=== PATIENT | female | born 1970 | race Caucasian/White ===

== ENCOUNTER → 2023-05-11 | Outpatient (CLI) | payer OTHER, SELFPAY ==
--- NOTE | 2023-05-11 09:22 | MRI_ITS ---
STUDY: MRI ABDOMEN AND PELVIS WITH CONTRAST AND ENTEROGRAPHY REASON FOR EXAM: Female, 52 years old. Chron''s disease; S/P small bowel resection TECHNIQUE: Standardized fat and water weighted pulse sequences were obtained in all 3 orthogonal planes post contrast administration. IV 16ml clariscan contrast material was administered. COMPARISON: None. FINDINGS: MR enterography Bowel: Skip lesions: There is moderate abnormal narrowing/stricturing in the middle one third aspect of the ileum seen in the right mid abdomen on image 17/24 series 3 which shows 2 separate areas of focal narrowing. Some fibrotic stranding which is low in signal is also present in the first area of focal narrowing seen on image 18/24 series 3. There is also mild bowel wall thickening with a short segment of mild to moderate narrowing at the terminal ileum/ileocolic junction best seen on images 16 and 17/24 series 5. No upstream dilatation is present. There is no evidence of small bowel obstruction. Vascularity: Normal. Enhancement: Normal. Fistula: None. Abscess: None. There is no evidence of bowel obstruction or abnormal tethering of the bowel loops. No intraluminal masses are seen. Contrast opacifies the bowel loops with no focal stricturing or abnormal dilatation. The visualized lung bases are unremarkable. The visualized portions of the heart are within normal limits. Normal liver. Normal gallbladder and extrahepatic biliary system. Normal spleen. Normal pancreas. Normal bilateral adrenal glands. Normal right kidney. Normal left kidney. Normal visualized stomach. Normal remaining small intestine. Normal colon. Normal abdominal aorta. Normal inferior vena cava. Normal retroperitoneum. Normal urinary bladder. Normal abdominal wall. Normal osseous structures. MRI/Enterography Abd/Pel IMPRESSION: 1. Skip lesions: There is moderate abnormal narrowing/stricturing in the middle one third aspect of the ileum seen in the right mid abdomen on image 17/24 series 3 which shows 2 separate areas of focal narrowing. Some fibrotic stranding which is low in signal is also present in the first area of focal narrowing seen on image 18/24 series 3. There is also mild bowel wall thickening with a short segment of mild to moderate narrowing at the terminal ileum/ileocolic junction best seen on images 16 and 17/24 series 5. No upstream dilatation is present. There is no evidence of small bowel obstruction. Electronically Signed: Sam Moreno MD at 12:25 [facility] ,
--- OUTSIDE RECORDS SUMMARY | 2023-05-11 09:23 | XMS RPT_ITS | CCD ---
Author Name Unknown Address [address] [facility] [address] [place] [address] Organization [facility] Care Team Providers Care Security Business Analyst Name Role Phone José Miguel Burris Unavailable Unavailable Ramos Madsen Primary Care Provider Ramos Madsen Primary Care Provider Ramos Madsen Primary Care Provider Dallas Samano MD Unavailable Ramos Madesn MD Primary Care Provider [phone] Ramos Madsen MD Primary Care Provider Unavailable Primary Care Provider Unavailabl e ESTELA LOWE CNP Admitting Unavailable ESTELA LOWE CNP Primary Care Unavailable ESTELA LOWE CNP Consulting Unavailable ESTELA LOWE CNP Attending Unavailable PROVIDER, UNKNOWN Consulting Unavailable PROVIDER, UNKNOWN Consulting Unavailable ESTELA LOWE CNP Admitting Unavailable ESTELA LOWE CNP Primary Care Unavailable ESTELA LOWE CNP Consulting Unavailable ESTELA LOWE CNP Attending Unavailable PROVIDER, UNKNOWN Consulting Unavailable PROVIDER, UNKNOWN Consulting Unavailable ESTELA LOWE CNP Admitting Unavailable ESTELA LOWE CNP Primary Care Unavailable ESTELA LOWE CNP Attending Unavailable Estela Lowe Primary Care Provider JESUS CAMPOS Referring Unavailable JESUS CAMPOS Attending Unavailable ESTELA LOWE CNP Primary Care Unavailable TIERRA DUONG~[phone], TIERRA Andrade Attending Unavailable TIERRA DUONG~[phone], TIERRA Andrade Admitting Unavailable Allergies Allergy Classification Reported Allergen(s) Allergy Type Date of Onset Reaction(s) Facility adalimumab (1 source) adalimumab Drug Allergy 016 Rash, Other (See Comments) [facility] Corticosteroids (2 sources) predniSONE Drug Allergy Hives, Other (See Comments) [facility] Macrolides (antibiotic) (1 source) Azithromycin Drug Allergy Diarrhea [facility] mesalamine (1 source) mesalamine Drug Allergy Hives [facility] Nitrofurantoin (1 source) Nitrofurantoin Drug Allergy 018 Nausea Only, Other (See Comments) [facility] NSAIDs (1 source) NSAIDs Drug Allergy Other (See Comments) [facility] Opioid Agonists (1 source) Propoxyphene Drug Allergy Hives [facility] Quinolones (antibiotic) (2 sources) levoFLOXacin Drug Allergy Hives [facility] Sulfonamides (antibiotic) (1 source) Sulfonamides (Antibiotic) Drug Allergy Hives [facility] (17 sources) adalimumab; Translations: [ADALIMUMAB] Drug Allergy 016 Rash, Other (See Comments), [place], [place] (19 sources) Azithromycin; Translations: [AZITHROMYCIN] Drug Allergy Diarrhea, Other: See Comments [place], [place] (19 sources) levoFLOXacin; Translations: [LEVOFLOXACIN] Drug Allergy [place] (14 sources) levoFLOXacin Drug Allergy [place] (14 sources) mesalamine Drug Allergy [place] (16 sources) methylPREDNISolone Drug Allergy [place] (14 sources) Nitrofurantoin Drug Allergy 018 Nausea Only, Other (See Comments) [place] (14 sources) NSAIDs Propensity to adverse reactions to drug Other (See Comments) [place] (18 sources) predniSONE; Translations: [PREDNISONE] Drug Allergy Hives, Other (See Comments) [place] (14 sources) Propoxyphene Drug Allergy 015 [place] (14 sources) Sulfonamides (Antibiotic) Propensity to adverse reactions to drug [place] (14 sources) Other Propensity to adverse reactions 013 Anaphylaxis [place] (1 source) Acetaminophen / Propoxyphene Drug Allergy hives [facility] [facility] Work Phone: (2 sources) adalimumab; Translations: [Humira] Drug Allergy swelling [facility] Work Phone: (1 source) Aspirin Drug Allergy due to chrons [facility] Work Phone: (1 source) Azithromycin Drug Allergy GI upset [facility] Work Phone: (1 source) House dust mite; Translations: [DUST MITES] allergy to substance nasal congenstion [facility] Work Phone: (1 source) Ibuprofen Drug Allergy Unable due to Chrons [facility] Work Phone: (1 source) le[facility]FLOXacin [facility] Work Phone: (2 sources) mesalamine; Translations: [Asacol] [facility] Work Phone: (2 sources) methylPREDNISolone; Translations: [Solu-Medrol] Drug Allergy hives/ swelling [facility] Work Phone: (1 source) Mold Extract; Translations: [MOLD] Drug Allergy [facility] Work Phone: (1 source) Nitrofurantoin Drug Allergy [place] [facility] Work Phone: (1 source) Propoxyphene [facility] Work Phone: (1 source) Sulfacetamide Drug Allergy [facility] Work Phone: (1 source) STINGING INSECTS; Translations: [STINGING INSECTS] allergy to substance swelling [facility] Work Phone: (3 sources) methylPREDNISolone; Translations: [METHYLPREDNISOLONE SODIUM SUCC] Drug Allergy [facility] (5 sources) Metoclopramide; Translations: [METOCLOPRAMIDE] Drug Allergy Other: See Comments [facility] (3 sources) NITROFURANTOIN, MACROCRYSTALS / Nitrofurantoin, Monohydrate; Translations: [NITROFURANTOIN MONOHYD/M-CRYST] Drug Allergy Other: See [facility] (3 sources) Non-steroidal anti-inflammatory agent; Translations: [NSAIDS (NON-STEROIDAL ANTI-INFLAMMATORY DRUG)] Propensity to adverse reactions to drug Other: See Comments [facility] (3 sources) Sulfonamides (Antibiotic); Translations: [SULFA (SULFONAMIDE ANTIBIOTICS)] Drug Allergy [facility] (3 sources) Centella Asiaticoside; Translations: [CENTELLA ASIATICOSIDE] Drug Allergy [facility] (3 sources) Propoxyphene N-Acetaminophen; Translations: [PROPOXYPHENE N-ACETAMINOPHEN] Drug Allergy [facility] (3 sources) Insect Venom; Translations: [INSECT VENOM] Drug Allergy Anaphylaxis [facility] (2 sources) adalimumab Drug Allergy [facility] (2 sources) Aluminum aspirin Drug Allergy [facility] (2 sources) bee venom Propensity to adverse reactions Anaphylaxis [facility] (2 sources) mesalamine Drug Allergy [facility] (2 sources) Nitrofurantoin Drug Allergy [facility] (2 sources) sulfADIAZINE Drug Allergy [facility] (1 source) Aspirin Drug Allergy [facility] (1 source) Azithromycin Drug Allergy [facility] (1 source) formoterol Drug Allergy [facility] (1 source) levoFLOXacin Drug Allergy [facility] (1 source) Nitrofurantoin Drug Allergy [facility] (1 source) NSAIDs Drug allergy (disorder) [facility] (1 source) predniSONE Drug Allergy [facility] (1 source) Sulfonamides (Antibiotic) Drug allergy (disorder) [facility] NEGATED: Highlighted row has been ruled out!Unclassified (1 source) Other Propensity to adverse reactions 013 Anaphylaxis [facility] Medications Current Medications Medication Drug Class(es) Dates Sig (Normalized) Sig (Original) anastrozole 1 mg oral tablet (16 sources) Aromatase Inhibitor Start: 09-30-2020 take 1 tablet by mouth once daily anastrozole (ARIMIDEX) 1 MG tablet take 1 tablet by mouth once daily 90 tablet 0 09/30/2020 Active Completed/Discontinued Medications Medication Drug Class(es) Dates Sig (Normalized) Sig (Original) acetaminophen 500 mg oral tablet (2 sources) acetaminophen (T YLENOL EX STR RAPID RELEASE ORAL) Take 500 mg by mouth as needed. 0 Active Problems Active Problems Problem Classification Problem Date Documented Da te Episodic/Chronic Cancer of breast (6 sources) Intraductal carcinoma in situ of right breast; Translations: [Intraductal carcinoma in situ of right breast] Onset: 06-26-2015 03-11-2016 Chronic Cancer of breast (11 sources) Intraductal carcinoma in situ of right breast; Translations: [Ductal carcinoma in situ (DCIS) of right breast] Onset: 06-26-2015 03-11-2016 Complications of surgical procedures or medical care (20 sources) Short bowel syndrome; Translations: [Postsurgical malabsorption, not elsewhere classified] Onset: 08-17-2018 08-17-2018 Chronic Diabetes mellitus with complications (1 source) Type 2 diabetes mellitus with hyperglycemia; Translations: [Type 2 diabetes mellitus with hyperglycemia] Onset: 02-01-2023 Chronic Disorders of lipid metabolism (1 source) Hyperlipidemia, unspecified; Translations: [Hyperlipidemia, unspecified] Onset: 02-01-2023 Chronic Genitourinary symptoms and ill-defined conditions (4 sources) Retention of urine; Translations: [Retention of urine, unspecified] Onset: 03-20-2023 01-24-2023 Episodic Nonmalignant breast conditions (1 source) Discharge from left nipple; Translations: [Discharge from left nipple] Other connective tissue disease (1 source) Other muscle spasm; Translations: [Other muscle spasm] Onset: 02-01-2023 Episodic Other connective tissue disease (1 source) Adhesive capsulitis of right shoulder; Translations: [Adhesive capsulitis of right shoulder] Onset: 03-13-2020 03-13-2020 Other diseases of kidney and ureters (1 source) Cyst of kidney; Translations: [Cyst of kidney, acquired] 01-24-2023 Episodic Other screening for suspected conditions (not mental disorders or infectious disease) (1 source) Mammography abnormal; Translations: [Other abnormal and inconclusive findings on diagnostic imaging of breast] 03-22-2023 Episodic Regional enteritis and ulcerative colitis (20 sources) Crohn's disease of small AND large intestines; Translations: [Crohn's disease of both small and large intestine with intestinal obstruction] Onset: 03-04-2015 03-04-2015 Chronic Unclassified (1 source) Breast finding ; Translations: [Personal history of breast implant removal] Onset: 03-14-2016 03-14-2016 Past or Other Problems Problem Classification Problem Date Documented Date Episodic/Chronic Cancer of breast (18 sources) History of malignant neoplasm of breast; Translations: [Encounter for follow-up examination after completed treatment for malignant neoplasm] Onset: 6 03-11-2016 Episodic Complication of device; implant or graft (1 source) Capsular breast contracture of breast implant; Translations: [Capsular contracture of breast implant, initial encounter] Onset: 6 11-30-2015 Episodic Nonmalignant breast conditions (18 sources) Mammographic microcalcification of breast; Translations: [Microcalcifications of the breast] Onset: 6 06-05-2015 Episodic Residual codes; unclassified (1 source) History of augmentation of breast; Translations: [Other specified postprocedural states] Onset: 6 01-04-2016 Episodic Unclassified (1 source) Problem Results Test Name Value Interpretation Reference Range Facil ity Vital Signs Date Time Vital Sign Value Performing Clinician Faci lity 03-22-2023 13:05-0500 Body height 167.6 cm Celi Rojas MD Work Phone: [facility] [employer] 03-22-2023 13:05-0500 Body mass index (BMI) [Ratio] 28.89 kg/m2 Celi Rojas MD Work Phone: [facility] [employer] 03-22-2023 13:05-0500 Body temperature 97.81 [degF] Celi Rojas MD Work Phone: [facility] [employer] 03-22-2023 13:05-0500 Body weight 81.19 kg Celi Rojas MD Work Phone: [facility] 03-22-2023 13:05-0500 Diastolic blood pressure 77 mm[Hg] Celi Rojas MD Work Phone: [facility] [employer] 03-22-2023 13:05-0500 Heart rate 104 /min Celi Rojas MD Work Phone: [facility] Encounters Encounter Date Encounter Type Care Provider Facility Start: 04-25-2023 End: 04-26-2023 ambulatory ESTELA LOWE [facility] Start: 03-22-2023 Telephone encounter Celi Coon MD Work Phone: [facility] General Surgery Procedures Date Procedure Procedure Detail Performing Clinician Start: 01-24-2023 Urnls dip stick/tabl et rgnt auto w/o microscopy Jesus Campos PA-C Work Phone: Start: 03-13-2020 End: 03-13-2020 Arthrocentesis aspir&/inj major jt/bursa w/o us Dallas Samano MD Work Phone: Start: 03-13-2020 End: 03-13-2020 Blood pressure screening not performed - reason not given Dallas Samano MD Work Phone: Start: 03-13-2020 End: 03-13-2020 BMI documented as above normal parameters - follow-up documented Dallas Samano MD Work Phone: Start: 03-13-2020 End: 03-13-2020 Documentation of current medications Dallas Samano MD Work Phone: Start: 03-13-2020 End: 03-13-2020 Injection - triamcinolone acetonide 10 mg Dallas Samano MD Work Phone: Start: 03-13-2020 End: 03-13-2020 Pain assessment documented as positive - follow-up documented Dallas Samano MD Work Phone: Start: 03-13-2020 End: 03-13-2020 Tobacco non-user Dallas Samano MD Work Phone: Start: 02-14-2020 Mammography Celi Coon MD Work Phone: Start: 06-21-2019 Us breast uni real t april with image limited Celi Rojas Work Phone: Start: 06-21-2019 Diagnostic mammograp hy computer-aided detcj uni Celi Rojas Work Phone: Start: 04-13-2018 Lipid 1996 panel - S briana or Plasma Jesus Campos PA-C Work Phone: NEGATED: Highlighted rowStart: 03-13-2020 End: 03-13-2020 Documentation of current medications Kiley Wilkinson Plan of Treatment Date Care Activity Detail Author Start: 2030 RSV Immunization aged 60 or older (1 - 1-dose 60+ series) RSV Immunization aged 60 or older (1 - 1-dose 60+ series) [facility] Start: 02-01-2026 Diabetes Screening Diabetes Screening [facility] Start: 02-02-2024 Hemoglobin A1c measurement Diabetes: Hemoglobin A1C [facility] Start: 09-20-2023 End: 05-22-2024 DBT Breast - right diagnostic Right diagnostic mammogram with tomosynthesis Imaging Routine History of ductal carcinoma in situ (DCIS) of breast Abnormal mammogram of right breast Breast asymmetry Expected: 09/20/2023, Expires: 05/22/2024 [facility] Work Phone: Immunizations Immunization Date Immunization Notes Care Provider Fa cility 01-23-2020 influenza virus vacc ine, unspecified formulation Jesus Campos PA-C Work Phone: [facility] 04-09-2018 influenza virus vacc ine, unspecified formulation Celi Rojas MD Work Phone: [facility] Payers Date Payer Category Payer Unknown [id number] 2018 Unknown [facility] xxxxxxxxxxx 2018-Present [phone] [address] [place] [address] xxxxxxxxxxx [id number] 2018 Unknown [facility] [id number] 2018-Present [phone] [address] [place] [address] [id number] 2016 Private Health Insurance [id number] 2016 Private Health Insurance [employer] xxxxxxxxxx 2016-Present [phone] [address] [place] [address] xxxxxxxxxx [id number] 1970 Unknown [id number] 1970 Unknown [id number] 1970 Unknown [id number] 1970 Unknown [id number] 1970 Unknown [id number] 1959 Unknown [id number] Social History Date Type Detail Facility Start: 09-28-2018 End: 01-24-2023 Tobacco smoking status NHIS Former smoker [facility] End: 01-25-2018 History of tobacco use Current smoker [facility] [employer] [place] Start: 09-28-2018 End: 04-12-2022 Cigarettes smoked current (pack per day) - Reported [facility] Start: 09-28-2018 End: 04-12-2022 Alcohol intake No [facility] [place] Start: 03-04-2015 Alcohol Comment caffeine use 2 -3 cups of coffee or pop [facility] [place] Start: 1970 Sex Assigned At Not on file M [facility] Start: 09-28-2018 End: 03-22-2023 Alcohol intake Current non-drinker of alcohol (finding) [facility] [place] Start: 02-05-2020 End: 01-24-2023 Tobacco use and exposure Never used [facility] [place] Exposure to SARS-CoV-2 (event) Not sure [facility] [place] Start: 03-13-2020 End: 03-13-2020 Assertion Unknown if ever smoked [facility] Work Phone: End: 01-25-2018 History of tobacco use Cigarette Smoker [facility] Start: 01-24-2023 Alcohol intake Ex-drinker (finding) [facility] Start: 1970 Sex Assigned At Female C [facility] Start: 01-18-2023 Gender identity Identifies as female gender (finding) [facility] Start: 01-18-2023 Sexual orientation Heterosexual (fin shantelle) [facility] NEGATED: Highlighted rowStart: 03-13-2020 End: 03-13-2020 Employment detail Employment detail [facility] Work Phone: Clinical Notes 01-24-2023 to 03-22-2023 Telephone Encounter - Celi Rojas MD - 03/22/2023 5:48 PM ESTTelephone Encounter - Celi Rojas MD - 03/22/2023 5:48 PM ESTVicjesus Rojas MD - 03/22/2023 1:00 PM EST Note Date & Type Note Facility 03-22-2023 Telephone encounter Note Images reviewed with radiology and consistent with scar tissue Left message on phone number on file [facility] 03-22-2023 Miscellaneous Notes Images reviewed with radiology and consistent with scar tissue Left message on phone number on file Ragini saw Dr Love today for abnormal breast imaging performed at [facility] She brought disc to appointment today of 03/01/23 bilateral mammogram and right dx and ultrasound Disc taken to Breast and Imaging to be loaded into [email or web address] Dr Love to review images documented in this encounter [facility] 03-22-2023 Telephone encounter Note Ragini saw Dr Love today for abnormal breast imaging performed at [facility] She brought disc to appointment today of 03/01/23 bilateral mammogram and right dx and ultrasound Disc taken to Breast and Imaging to be loaded into [email or web address] Dr Love to review images [facility] 03-22-2023 History of Presen t illness Narrative Images from the original note were not included. Chief Complaint Patient presents with Abnormal Imaging Denies any breast pain or concerns History of Present Illness: Ragini Mensah is a 52 y.o. female here for exam due to an abnormal mammogram in [facility] with BIRAD 3 probably benign findings RIGHT breast. 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 Had oophorectomy Treatments include: Surgery- 06/21/15 lumpectomy, In 2017 she had her implants removed and a bilateral mastopexy. Chemotherapy- none Radiation therapy- completed 10/09/15 Endocrine therapy- Arimidex Last mammogram date 03/01/23 [facility] Last DEXA 01/05/18. Results: Normal. Genetics: GeneDX- VUS in MSH2 Imaging: Review of Systems: Review of Systems Constitutional: Negative for appetite change, diaphoresis, fatigue, fever and unexpected weight change. HENT: Negative for trouble swallowing and voice change. Eyes: Negative for visual disturbance. Respiratory: Negative for apnea, cough, choking, shortness of breath and stridor. Cardiovascular: Negative for chest pain. Gastrointestinal: Crohn's disease Endocrine: Negative for cold intolerance and heat intolerance. Musculoskeletal: Positive for arthralgias. Negative for joint swelling, myalgias and neck pain. Skin: Negative for color change and rash. Allergic/Immunologic: Negative for immunocompromised state. Neurological: Negative for dizziness, tremors, weakness, numbness and headaches. Hematological: Negative for adenopathy. Psychiatric/Behavioral: Negative for decreased concentration and dysphoric mood. The patient is not nervous/anxious. Past Medical History: Diagnosis Date Allergic rhinitis Arthritis Back pain Breast neoplasm, 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 DCIS// radiation txs Crohn's colitis (CMS/HCC) (HCC) Diabetes (HCC) Controled by diet GERD (gastroesophageal reflux disease) Hyperlipidemia MVP (mitral valve prolapse) hx of Osteoarthritis Restless leg syndrome Tachycardia TMJ (dislocation of temporomandibular joint) Past Surgical History: Procedure Laterality Date APPENDECTOMY 2014 BREAST BIOPSY Right 06/09/15 core biopsy right breast x 2 (+) BREAST BIOPSY Left 06/23/15 core biopsy left breast (-) BREAST ENHANCEMENT SURGERY 2004 BREAST LUMPECTOMY Right 07/20/15 RSL right breast lumpectomy BREAST SURGERY Bilateral 03/28/2016 mastopexy, implants removed andrea, capsular contracture removede right SECTION (HISTORICAL) 1999 CHOLECYSTECTOMY 1995 COLECTOMY CYST REMOVAL Right EAR CYSTOURETHROSCOPY/URETHRAL DILATION (HISTORICAL) x's 7 DILATION AND CURETTAGE OF UTERUS x's 7 ENDOMETRIAL ABLATION 2004 OTHER SURGICAL HISTORY interstim stage I OTHER SURGICAL HISTORY 07/04/2017 Stage I Interstim placement of permanent lead under fluoroscopic guidance SALPINGOOPHORECTOMY Bilateral 09/2015 Laparoscopic TMJ ARTHROPLASTY (HISTORICAL) 87/89//12 x's 4 TMJ ARTHROSCOPY (HISTORICAL) TONSILLECTOMY AND ADENOIDECTOMY (HISTORICAL) 1975 TUBAL LIGATION 2004 WISDOM TOOTH EXTRACTION Allergies Allergen Reactions Bee Venom Anaphylaxis Asa [Aspirin] Grohns Asacol [Mesalamine] Hives Humira [Adalimumab] Hives Levaquin [Levofloxacin] Hives Macrobid [Nitrofurantoin] Lethargy sleep Reglan [Metoclopramide] Tardive dyskinesia Solu-Medrol [Methylprednisolone] Hives Sulfadiazine Hives Zithromax [Azithromycin] GI upset BP 125/77 (BP Location: Left arm, Patient Position: Sitting) Pulse 104 Comment: patient states she has tachycardia Temp 36.6 C (97.8 F) (Temporal) Resp 12 Ht 5' 6 (1.676 m) Wt 179 lb (81.2 kg) BMI 28.89 kg/m Current Outpatient Medications on File Prior to Visit Medication Sig Dispense Refill cetirizine (ZyrTEC) 10 MG tablet Take 10 mg by mouth. Daily ezetimibe (Zetia) 10 MG tablet Take 10 mg by mouth daily. folic acid (Folvite) 1 MG tablet Take by mouth daily. glimepiride (Amaryl) 4 MG tablet Take 4 mg by mouth every morning (before breakfast). 2 daily Insulin Glargine (TOUJEO MAX SOLOSTAR SC) Inject under the skin. 84 units daily metFORMIN, MOD, (Glumetza) 1000 MG 24 hr tablet Take 1,000 mg by mouth in the morning and 1,000 mg in the evening. Take with meals. Do not crush, chew, or split.. methotrexate 2.5 MG tablet Take by mouth 1 (one) time per week. Follow directions carefully, and ask to explain any part you do not understand. Take exactly as directed. 10 tabs weekly metoprolol succinate XL (Toprol-XL) 100 MG 24 hr tablet Take 100 mg by mouth. Do not crush or chew. omeprazole (PriLOSEC) [address] capsule Take 40 mg by mouth every morning (before breakfast). Do not crush or chew. ondansetron (Zofran) 8 MG tablet Take by mouth every 8 hours as needed for nausea or vomiting. promethazine (Phenergan) 25 MG tablet Take by mouth every 8 hours as needed for nausea or vomiting. rosuvastatin (Crestor) 40 MG tablet Take 40 mg by mouth daily. semaglutide (Rybelsus) 14 MG tablet Take 14 mg by mouth every morning (before breakfast). tiZANidine (Zanaflex) 4 MG tablet Take 4 mg by mouth every 6 hours as needed for muscle spasms. 2 at bedtime traZODone (Desyrel) 100 MG tablet Take 100 mg by mouth Nightly. vedolizumab (Entyvio) 300 MG injection Infuse 300 mg into a venous catheter Once. Every 8 weeks venlafaxine XR (Effexor XR) 37.5 MG 24 hr capsule Take 37.5 mg by mouth daily. Do not crush or chew. No current facility-administered medications on file prior to visit. Physical Exam: Physical Exam Constitutional: Appearance: Normal appearance. She is normal weight. HENT: Head: Normocephalic and atraumatic. Eyes: Extraocular Movements: Extraocular movements intact. Conjunctiva/sclera: Conjunctivae normal. Pupils: Pupils are equal, round, and reactive to light. Cardiovascular: Rate and Rhythm: Normal rate and regular rhythm. Pulses: Normal pulses. Pulmonary: Effort: Pulmonary effort is normal. Breath sounds: Normal breath sounds. No stridor. Chest: Chest wall: No deformity, tenderness or edema. Breasts: Breasts are symmetrical. Right: Skin change (radiation change) and tenderness present. No swelling, inverted nipple, mass or nipple discharge. Left: Tenderness present. No swelling, inverted nipple, mass, nipple discharge or skin change. Musculoskeletal: General: No swelling, tenderness or deformity. Normal range of motion. Cervical back: Normal range of motion and neck supple. No rigidity or tenderness. Right lower leg: No edema. Left lower leg: No edema. Lymphadenopathy: Cervical: No cervical adenopathy. Right cervical: No superficial, deep or posterior cervical adenopathy. Left cervical: No superficial, deep or posterior cervical adenopathy. Upper Body: Right upper body: No supraclavicular, axillary or pectoral adenopathy. Left upper body: No supraclavicular, axillary or pectoral adenopathy. Skin: General: Skin is warm and dry. Coloration: Skin is not jaundiced or pale. Findings: No erythema, lesion or rash. Neurological: General: No focal deficit present. Mental Status: She is alert and oriented to person, place, and time. Motor: No weakness. Gait: Gait normal. Psychiatric: Mood and Affect: Mood normal. Behavior: Behavior normal. Thought Content: Thought content normal. Assessment: 1. Breast asymmetry 2. History of ductal carcinoma in situ (DCIS) of breast 3. Abnormal mammogram of right breast Films reviewed with radiology and looks like scar Plan: Orders Placed This Encounter Procedures Right diagnostic mammogram with tomosynthesis Breast Cancer Surveillance: History and physical exam 1-4 times per year for 5 years, then annually Mammography every 12 months (routine imaging of reconstructed breast is not indicated) For women on tamoxifen: annual gynecologic assessment every 12 mo if uterus present For women on aromatase inhibitor: Monitoring of bone density at baseline and periodically thereafter Encouraged physical activity, healthy diet, limiting alcohol intake, and achieving and maintaining a healthy body weight Celi Rojas MD 03/22/2023 Please disregard any typographical errors. This note was dictated using voice recognition software. documented in this encounter [facility] 03-20-2023 Miscellaneous Notes Images from the original note were not included. Jesus Campos PA-C [facility] [place]; Ro Landry LPN 34 minutes ago (1:21 PM) Patient will have to bring straight cath to give sample at lab Called patient. Verified name and date of . Patient informed- verbalizes understanding. Betzy Lemus LPN Patient called, verified name/ , regarding having an UTI. Patient states she is experiencing pain when urinating, frequent urination, urine is cloudy especially when she self- cath. Please review advise. Ro Landry LPN documented in this encounter [facility] 01-24-2023 Note HNO ID: [id number] Author: Jesus Campos PA-C Service: ? Author Type: Physician Shovel Mechanic Type: Progress Notes Filed: 01/24/2023 7:52 PM Note Text: COUNT INCLUDES THE [facility] NEW PATIENT CLINIC NOTE SERVICE DATE: 01/24/2023 SERVICE TIME: 2:52 PM NAME: Ragini Mensah CHIEF COMPLAINT: HISTORY OF PRESENT ILLNESS: Ragini Mensah is a 52 year old female moving from [place] to [place] and establishing for her long history of urethral stricture needing annual dilation in the past now with urinary retention and use of CIC twice per day , she has not had dilation for years The patient reports catheters needed new Rx to be sent to [address] [place] [address], Rx for 130 each written to be faxed LUTS: EMPTIES COMPLETELY: No UTI: No GROSS HEMATURIA: no LABS: No results found for: TESTOST No results found for: TESTFREE No results found for: PSA No results found for: HCT No results found for: PSA No results found for: CREAT . MEDICATIONS: glimepiride (AMARYL) 4 mg tablet Take 8 mg by mouth daily at bedtime. venlafaxine (EFFEXOR) 37.5 mg tablet Take 37.5 mg by mouth daily at bedtime. omeprazole (PRILOSEC) 40 mg capsule Take 40 mg by mouth once daily. cetirizine (ZYRTEC) 10 mg tablet Take 10 mg by mouth daily at bedtime. tiZANidine (ZANAFLEX) 4 mg tablet Take 4 mg by mouth daily at bedtime. Takes 8 MG metoprolol succinate ER (TOPROL XL) 100 mg Take 1 tablet by mouth once daily. rosuvastatin (CRESTOR) 40 mg tablet Take 40 mg by mouth once daily. metFORMIN (GLUCOPHAGE) 1,000 mg tablet Take 1 tablet by mouth two times a day. methotrexate 2.5 mg tablet Take 2.5 mg by mouth one time a week. 10 tablets traZODone (DESYREL) 100 mg tablet Take 100 mg by mouth daily at bedtime. promethazine (PHENERGAN) 25 mg tablet Take 25 mg by mouth at bedtime as needed. insulin glargine U-300 conc (TOUJEO MAX U-300 SOLOSTAR) 300 unit/mL (3 mL) inpn Inject 84 Units subcutaneously once daily. RYBELSUS 7 mg tablet Take 7 mg by mouth once daily. acetaminophen (TYLENOL EX STR RAPID RELEASE ORAL) Take 500 mg by mouth as needed. folic acid 1 mg tablet Take 1 mg by mouth daily at bedtime. vedolizumab (ENTYVIO) 300 mg injection Inject 300 mg intravenously every 8 weeks. (Patient not taking: Reported on 01/24/2023) lomitapide mesylate (LOMITAPIDE ORAL) Take 5 mg by mouth daily at bedtime. (Patient not taking: Reported on 01/24/2023) Catheter 14-16 Fr- misc 1 Each two times a day. 180 medical PAST MEDICAL HISTORY: PAST MEDICAL HISTORY Diagnosis Date Arthritis, multiple joint involvement Body mass index 29.0-29.9, adult Breast cancer (HCC) H/O Chronic nausea Crohn disease (HCC) Dyslipidemia Environmental and seasonal allergies Former smoker GERD (gastroesophageal reflux disease) Hypertension goal BP (blood pressure) < 140/90 Intertrigo Major depression Muscle spasm Overweight with body mass index (BMI) 25.0-29.9 Port-A-Cath in place Raynaud phenomenon Type 2 diabetes mellitus with hyperglycemia, without long-term current use of insulin (HCC) Urinary retention PAST SURGICAL HISTORY: PAST SURGICAL HISTORY Procedure Laterality Date BREAST LUMPECTOMY HX Right 2016 LIGATE FALLOPIAN TUBE 2005 PAST SURGICAL HISTORY OF 2005 Ablation PAST SURGICAL HISTORY OF Cystoscopy x 9 FAMILY HISTORY: No family history on file. SOCIAL HISTORY: Social Connections: Not on file REVIEW OF SYSTEMS: GENERAL: No fever, chills, weight loss, or fatigue. ENMT: Negative CARDIOVASCULAR:NO CHEST PAIN, PALPITATIONS, ANKLE EDEMA RESPIRATORY: No chronic cough, wheezing, dyspnea, hemoptysis. GENITOURINARY: SEE HPI MUSCULOSKELETAL:NO CHRONIC BACK PAIN, ARTHRITIS, CHRONIC NECK PAIN SKIN: NO VARICOSE VEINS, RASH, ABNORMAL ITCHING HEME/LYMPH/IMMUNE:Negative for prolonged bleeding, bruising easily or swollen nodes NEUROLOGICAL: NO HEADACHES, NUMBNESS, SEIZURES, STROKE DIABETES: yes with Glycosuria All other systems reviewed and are negative PHYSICAL EXAMINATION: Blood pressure 132/78, pulse 118, temperature 36.8 ?C (98.2 ?F), temperature source Temporal, resp. rate 14, height 167.6 cm (5' 6 ), weight 83.6 kg (184 lb 3.2 oz), SpO2 96 %. GENERAL: WNL nutrition, no deformities, healthy appearing NEURO: Awake, alert and oriented x 3 and Normal gait PSYCH: No signs of depression, anxiety, or agitation ENMT (Ear, Nose, Mouth, Throat): No masses, adenopathy, icterus. Thyroid nonpalpable RESP: NL effort, no retractions or purse-lip breathing. CV: No extremity swelling, varices, edema, pallor, erythema GASTROINTESTINAL: Soft, nontender, nondistended, no masses. HERNIAS: None SKIN: No rash, lesions No palpable lymphadenopathy MUSCULOSKELETAL: Extremities normal. No deformities, edema, clubbing or skin discoloration. PROBLEM LIST REVIEW: Yes LABS: Results for orders placed or performed in visit on 01/24/23 (more content not included)... [facility] 01-24-2023 Note HNO ID: [id number] Author: Betzy Lemus LPN Service: ? Author Type: ? Type: Progress Notes Filed: 01/24/2023 7:52 PM Note Text: Verified name and date of . CC Post Void Residual HPI: Ragini Mensah is a 52 year old female. The patient is here now for an appointment with BETITO Reynolds, SUDHA, PA-ROMEO. Procedure: Explained procedure to patient and verbalizes understanding. Performed a PVR. Patient urinated and instructed to empty bladder as much as possible just prior to having PVR done using bladder ultrasound scanner. Results of scan: 112 mL The patient tolerated the procedure well. Plan: Appointment with Jesus. [facility] 01-24-2023 History of Presen t illness Narrative Images from the original note were not included. COUNT INCLUDES THE [facility] NEW PATIENT CLINIC NOTE SERVICE DATE: 01/24/2023 SERVICE TIME: 2:52 PM NAME: Ragini Mensah CHIEF COMPLAINT: HISTORY OF PRESENT ILLNESS: Ragini Mensah is a 52 year old female moving from [place] to [place] and establishing for her long history of urethral stricture needing annual dilation in the past now with urinary retention and use of CIC twice per day , she has not had dilation for years The patient reports catheters needed new Rx to be sent to [facility], Rx for 130 each written to be faxed LUTS: EMPTIES COMPLETELY: No UTI: No GROSS HEMATURIA: no LABS: No results found for: TESTOST No results found for: TESTFREE No results found for: PSA No results found for: HCT No results found for: PSA No results found for: CREAT . MEDICATIONS: glimepiride (AMARYL) 4 mg tablet Take 8 mg by mouth daily at bedtime. venlafaxine (EFFEXOR) 37.5 mg tablet Take 37.5 mg by mouth daily at bedtime. omeprazole (PRILOSEC) 40 mg capsule Take 40 mg by mouth once daily. cetirizine (ZYRTEC) 10 mg tablet Take 10 mg by mouth daily at bedtime. tiZANidine (ZANAFLEX) 4 mg tablet Take 4 mg by mouth daily at bedtime. Takes 8 MG metoprolol succinate ER (TOPROL XL) 100 mg Take 1 tablet by mouth once daily. rosuvastatin (CRESTOR) 40 mg tablet Take 40 mg by mouth once daily. metFORMIN (GLUCOPHAGE) 1,000 mg tablet Take 1 tablet by mouth two times a day. methotrexate 2.5 mg tablet Take 2.5 mg by mouth one time a week. 10 tablets traZODone (DESYREL) 100 mg tablet Take 100 mg by mouth daily at bedtime. promethazine (PHENERGAN) 25 mg tablet Take 25 mg by mouth at bedtime as needed. insulin glargine U-300 conc (TOUJEO MAX U-300 SOLOSTAR) 300 unit/mL (3 mL) inpn Inject 84 Units subcutaneously once daily. RYBELSUS 7 mg tablet Take 7 mg by mouth once daily. acetaminophen (TYLENOL EX STR RAPID RELEASE ORAL) Take 500 mg by mouth as needed. folic acid 1 mg tablet Take 1 mg by mouth daily at bedtime. vedolizumab (ENTYVIO) 300 mg injection Inject 300 mg intravenously every 8 weeks. (Patient not taking: Reported on 01/24/2023) lomitapide mesylate (LOMITAPIDE ORAL) Take 5 mg by mouth daily at bedtime. (Patient not taking: Reported on 01/24/2023) Catheter 14-16 Fr- misc 1 Each two times a day. 180 medical PAST MEDICAL HISTORY: PAST MEDICAL HISTORY Diagnosis Date Arthritis, multiple joint involvement Body mass index 29.0-29.9, adult Breast cancer (HCC) H/O Chronic nausea Crohn disease (HCC) Dyslipidemia Environmental and seasonal allergies Former smoker GERD (gastroesophageal reflux disease) Hypertension goal BP (blood pressure) < 140/90 Intertrigo Major depression Muscle spasm Overweight with body mass index (BMI) 25.0-29.9 Port-A-Cath in place Raynaud phenomenon Type 2 diabetes mellitus with hyperglycemia, without long-term current use of insulin (HCC) Urinary retention PAST SURGICAL HISTORY: PAST SURGICAL HISTORY Procedure Laterality Date BREAST LUMPECTOMY HX Right 2016 LIGATE FALLOPIAN TUBE 2005 PAST SURGICAL HISTORY OF 2005 Ablation PAST SURGICAL HISTORY OF Cystoscopy x 9 FAMILY HISTORY: No family history on file. SOCIAL HISTORY: Social Connections: Not on file REVIEW OF SYSTEMS: GENERAL: No fever, chills, weight loss, or fatigue. ENMT: Negative CARDIOVASCULAR:NO CHEST PAIN, PALPITATIONS, ANKLE EDEMA RESPIRATORY: No chronic cough, wheezing, dyspnea, hemoptysis. GENITOURINARY: SEE HPI MUSCULOSKELETAL:NO CHRONIC BACK PAIN, ARTHRITIS, CHRONIC NECK PAIN SKIN: NO VARICOSE VEINS, RASH, ABNORMAL ITCHING HEME/LYMPH/IMMUNE:Negative for prolonged bleeding, bruising easily or swollen nodes NEUROLOGICAL: NO HEADACHES, NUMBNESS, SEIZURES, STROKE DIABETES: yes with Glycosuria All other systems reviewed and are negative PHYSICAL EXAMINATION: Blood pressure 132/78, pulse 118, temperature 36.8 C (98.2 F), temperature source Temporal, resp. rate 14, height 167.6 cm (5' 6 ), weight 83.6 kg (184 lb 3.2 oz), SpO2 96 %. GENERAL: WNL nutrition, no deformities, healthy appearing NEURO: Awake, alert and oriented x 3 and Normal gait PSYCH: No signs of depression, anxiety, or agitation ENMT (Ear, Nose, Mouth, Throat): No masses, adenopathy, icterus. Thyroid nonpalpable RESP: NL effort, no retractions or purse-lip breathing. CV: No extremity swelling, varices, edema, pallor, erythema GASTROINTESTINAL: Soft, nontender, nondistended, no masses. HERNIAS: None SKIN: No rash, lesions No palpable lymphadenopathy MUSCULOSKELETAL: Extremities normal. No deformities, edema, clubbing or skin discoloration. PROBLEM LIST REVIEW: Yes LABS: Results for orders placed or performed in visit on 01/24/23 UA DIP, URINE (POC) Result Value Ref Range GLUCOSE UA (POCT) 500 (A) Negative mg/dL BILIRUBIN UA (POCT) Negative Negative KETONE UA (POCT) Negative Negative mg/dL SPECIFIC GRAVITY UA (POCT) 1.010 1.005 - 1.030 HEMOGLOBIN/BLOOD UA (POCT) Negative Negative PH UA (POCT) 5.5 4.5 - 8.0 PROTEIN UA (POCT) Negative Negative mg/dL UROBILINOGEN UA (POCT) 0.2 Normal E.U./dL NITRITE UA (POCT) Negative Negative LEUKOCYTES UA (POCT) Negative Negative COLOR UA (POCT) Yellow CLARITY UA (POCT) Clear PROCEDURES: PVR: 112 ml IMAGING: Renal US - to check for hydronephrosis IMPRESSION/PLAN: 52 year old female with 1. Urine retention - ICD9: 788.20, ICD10: R33.9 (primary diagnosis) 2. H/O urethral stricture - ICD9: V13.09, ICD10: Z87.448 > Continue CIC twice per day > New Rx for 14f catheters to [facility]- medical today > Renal US - to check for hydronephrosis and renal cysts > 1 year Appt w/ B. BETITO Campos MT, PA-C for annual follow-up and refills. I spent a total of 30 minutes on the date of the service which included preparing to see the patient, face to face patient care, completing clinical documentation, obtaining and/or reviewing separately obtained history, performing a medically appropriate examination, counseling and educating the patient/family/caregiver, ordering medications, tests, or procedures, and care coordination. BETITO Reynolds MT, PA-C Verified name and date of . CC Post Void Residual HPI: Ragini Mensah is a 52 year old female. The patient is here now for an appointment with BETITO Reynolds MT, PA-COV. Procedure: Explained procedure to patient and verbalizes understanding. Performed a PVR. Patient urinated and instructed to empty bladder as much as possible just prior to having PVR done using bladder ultrasound scanner. Results of scan: 112 mL The patient tolerated the procedure well. Plan: Appointment with Jesus. 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 documented [facility] Phone: Evaluation note* Diagnosis Urine retention- Primary Retention of urine, unspecified H/O urethral stricture Personal history of other disorder of urinary system Renal cyst Unspecified congenital cystic kidney disease [facility] Diagnosis Dysuria- Primary [facility]* Diagnosis Breast asymmetry- Primary History of ductal carcinoma in situ (DCIS) of breast Abnormal mammogram of right breast [facility] Diagnostic Procedure Only (Routine) - Authorized Specialty Diagnoses / Procedures Referred By Contac t Referred To Contact US IMAGING Diagnoses Urine retention Procedures US KIDNEY/BLADDER US RETROPERITONEAL REAL TIME W/IMAGE COMPLETE Jesus Campos PA-C [address] [place] [address] [facility] [place] [address] Referral ID Status Reason Start Date Expiration Date Visits Requested Visits Authorized [id number] Authorized Auto-Generat ed Referral 02/24/2023 02/23/2024 1 1 [facility] Summary Purpose Family History No Family History Records FoundNo Family History Records FoundThere may be information available, but it has not been provided by the sender.No Family History Records FoundNo Family History Records FoundNo Family History Records FoundNo Family History Records Found Advance Directives No Advanced Directives Records FoundDocuments on File Type Date Recorded Patient Check Viewer Expl anation Advance Directives and Living Will Power of Drop Wire Hanger Latest Code Status on File Code Status Date Activated Date Inactivated Comments Full Code 07/25/2017 10:12 AM 07/25/2017 4:15 PM Full Code 07/04/2017 12:10 PM 07/04/2017 5:06 PM Documents on File Type Date Recorded Patient Check Viewer Expl anation Advance Directives and Living Will Power of Drop Wire Hanger Latest Code Status on File Code Status Date Activated Date Inactivated Comments Full Code 07/25/2017 10:12 AM 07/25/2017 4:15 PM Full Code 07/04/2017 12:10 PM 07/04/2017 5:06 PM Documents on File Type Date Recorded Patient Check Viewer Expl anation ACP-Advance Directive ACP-Power of Drop Wire Hanger Assessments Diagnosis 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 Diagnosis Crohn's disease of both small and large intestine with intestinal obstruction (HCC)- Primary Regional enteritis of small intestine with large intestine Short bowel syndrome Other and unspecified postsurgical nonabsorption Diagnosis 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 Diagnosis 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 Diagnosis Discharge from left nipple Diagnosis 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 [facility] [address] [place] [address] Status Reason Specialty Diagnoses / Procedures Referred By Contact Referred To Contact Authorized Radiology Diagnoses Discharge from left nipple Procedures ARIC RADHA DIGITAL DIAGNOSTIC UNILATERAL LEFT Celi Rojas MD [address] [place] [address] Chief Complaint Chief Complaint Description Start Date right shoulder pain Preliminary chief co mplaint data, not yet signed by the author as of Instructions Instruction Description Start Date CompletedPatient advised to follow-up with Primary Care Physician for BMI management. Review of System There may be information available, but it has not been provided by the sender. History of Present Illness There may be information available, but it has not been provided by the sender. Additional Source Comments INFORMATION SOURCE (unrecogn ized section and content) DATE CREATED AUTHOR AUTHOR'S ORGANIZ ATION 02/17/2020 [employer] [facility] tem DATE CREATED AUTHOR AUTHOR'S ORGANIZ ATION 10/15/2020 [facility] DATE CREATED AUTHOR AUTHOR'S ORGANIZ ATION 03/15/[address] [facility] DATE CREATED AUTHOR AUTHOR'S ORGANIZ ATION 03/25/2023 [facility] DATE CREATED AUTHOR AUTHOR'S ORGANIZ ATION 04/27/2023 [facility] Reason for Visit (unrecogniz ed section and content) Reason Comments Consult Urinary Retention Reason Comments Patient Update Possible UTI Orders Reason Comments Abnormal Imaging Denies any breast pa in or concerns Reason Onset Date Comments Breast imaging disc from [facility] 03/22 Source Comments (unrecognize d section and content) In the event this informatio n is protected by the Federal Confidentiality of Alcohol and Drug Abuse Patient Records regulations: The Federal rules restrict any use of the information to criminally investigate or prosecute any alcohol or drug abuse patient.[facility] the event this information is protected by the Federal Confidentiality of Alcohol and Drug Abuse Patient Records regulations: The Federal rules restrict any use of the information to criminally investigate or prosecute any alcohol or drug abuse patient.[facility] Care Teams (unrecognized sec tion and content) Security Business Analyst Relationship Specialty Start Date End Date Estela Lowe: [phone] [address] [facility] [address] [place] [address] PCP - General Internal Medicine 03/22/23 FOR RECORDS PERTAINING TO PATIENTS WHO ARE OR HAVE BEEN ENROLLED IN A CHEMICAL DEPENDENCY/SUBSTANCEABUSE PROGRAM, SOME INFORMATION MAY BE OMITTED. This clinical summary was aggregated from multiple sources. Caution should be exercised in using it in the provision of clinical care. This summary normalizes information from multiple sources, and as a consequence, information in this document may materially change the coding, format and clinical context of patient data. In addition, data may be omitted in some cases. CLINICAL DECISIONS SHOULD BE BASED ON THE PRIMARY CLINICAL RECORDS. [facility] provides no warranty or guarantee of the accuracy or completeness of information in this document.
[2023-05-11 09:52] VITALS: BP 122/58; PULSE 97; RESP 18; TEMP 36.7; O2SAT 96; BMI 28.2
[2023-05-11 10:47] LABS: CREATININE FINGERSTICK < 1.0 mg/dL (0.55-1.02); EGFR FINGERSTICK > 60.0000 mL/min (>60)
[2023-05-11] MEDS: Glucagon 1 MG/ML Syringe IM (11:11)
[2023-05-11] MEDS: 0.9% Saline Lock 10 ML Syringe IV (11:11)
[2023-05-11 11:35] VITALS: BP 122/58; BP 143/62; PULSE 97; RESP 18; TEMP 36.6; O2SAT 96
== END | disposition home or self-care (01) ==
PROVIDERS: PCP Nurse Practitioner Family; Referring Provider Internal Medicine Gastroenterology; Visit Provider Internal Medicine Gastroenterology
DX: K50.80 Crohn's disease of both small and large intestine without complications (principal)
CPT/HCPCS: 74183; 96374; A9575; J1610

== ENCOUNTER → 2024-11-26 | Outpatient (CLI) | payer OTHER, SELFPAY ==
[2024-11-26 12:40] VITALS: BP 123/67; PULSE 95; RESP 16; O2SAT 97
--- NOTE | 2024-11-26 12:57 | MRI_ITS ---
EXAM: ENTEROGRAPHY ABD/PEL 11/26/2024 CLINICAL HISTORY: [facility]OH[facility]. TECHNIQUE: ENTEROGRAPHY ABD/PEL Multiplanar and multisequence images were obtained without intravenous gadolinium contrast. COMPARISON: 05-11-2023 FINDINGS: Indistinction of the previously detected small bowel loops wall thickening. The stomach is not distended. The duodenum shows uniform mural thickening, possibly attributed to its under distension. The Jejunum and ileal loops show standard caliber with mild uniform wall thickening and enhancement yet with no obvious wall edema or related collections. The large bowel: The cecum and ascending colon, the descending and sigmoid colon appears adequately distended shows uniform wall thickness with no significant wall edema. Average liver showing homogenous parenchymal signal. No obvious pathologically enhancing hepatic focal lesions. Prominent biliary tracts. The gallbladder is not identified The portal vein and hepatic veins apple normal. The pancreas, adrenals and the spleen are normal in size and signal intensity. No obvious focal lesion is identified. Both kidneys are normal in size and position. No hydronephrosis or focal enhancing masses could be seen in both kidneys. Left renal small cortical cyst. Mild stranding of the perinephric fat is noted. Unremarkable urinary bladder. No obvious pelvic masses. No ascites or collections. No significant lymph node enlargement is seen in the abdomen. No marrow infiltrative lesions. MRI/Enterography Abd/Pel IMPRESSION: Indistinction of the previously detected small bowel loops wall thickening. Unremarkable study with no obvious bowel inflammatory changes. Reading Location: [facility] [address]
[2024-11-26] MEDS: Glucagon 1 MG/ML Syringe IV (13:33)
[2024-11-26 14:00] VITALS: BP 160/73; PULSE 98; RESP 16; O2SAT 98
[2024-11-26] MEDS: 0.9% Saline Lock 10 ML Syringe IV (14:00)
--- OUTSIDE RECORDS SUMMARY | 2024-11-26 18:43 | XMS RPT_ITS | CCD ---
Author Organization [facility] Care Team Providers [employer] Name Role Phone DaytonJosé Miguel Unavailable Unavailable Ramos Madsen Primary Care Provider [phone] Ramos Madsen Primary Care Provider [phone] Ramos Madsen Primary Care Provider [phone] Dallas Samano MD Unavailable Ramos Madsen MD Primary Care Provider Ramos Madsen MD Primary Care Provider Unavailable Primary Care Provider Unavailabl e Emily Lowe Primary Care Provider [phone] Mynor MFT.Emily BURGOS Primary Care Provider JESUS CAMPOS Referring Unavailable JESUS CAMPOS Attending Unavailable EMILY LOWE CNP Primary Care Unavailable EMILY LOWE CNP Consulting Unavailable EMILY LOWE CNP Attending Unavailable EMILY LOWE CNP Admitting Unavailable PROVIDER, UNKNOWN Consulting Unavailable PROVIDER, UNKNOWN Consulting Unavailable EMILY LOWE CNP Primary Care Unavailable EMILY LOWE CNP Consulting Unavailable EMILY LOWE CNP Attending Unavailable EMILY LOWE CNP Admitting Unavailable PROVIDER, UNKNOWN Consulting Unavailable PROVIDER, UNKNOWN Consulting Unavailable EMILY LOWE CNP Primary Care Unavailable EMILY LOWE CNP Consulting Unavailable EMILY LOWE CNP Attending Unavailable EMILY LOWE CNP Admitting Unavailable PROVIDER, UNKNOWN Consulting Unavailable PROVIDER, UNKNOWN Consulting Unavailable FABIANASTKARINA SUPERVISOR PLASTICS~[id number], ELEAZAR LOPEZ Attending Unavailable EMILY LOWE CNP Primary Care Unavailable FABIANASTKARINA SUPERVISOR PLASTICS~[id number], ELEAZAR LOPEZ Admitting Unavailable MYNOR SUPERVISOR PLASTICS, EMILY Primary Care Unavailable DAYTON MD~[id number], DAYTON JOSÉ MIGUEL J Admitting Unavailable DAYTON MD~[id number], DAYTON JOSÉ MIGUEL J Attending Unavailable MYNOR SUPERVISOR PLASTICS, EMILY Primary Care Unavailable DAYTON MD~[id number], DAYTON JOSÉ MIGUEL J Admitting Unavailable DAYTON MD~[id number], DAYTON JOSÉ MIGUEL J Attending Unavailable MYNOR SUPERVISOR PLASTICS, EMILY Primary Care Unavailable DAYTON MD~[id number], DAYTON JOSÉ MIGUEL J Admitting Unavailable DAYTON MD~[id number], DAYTON JOSÉ MIGUEL J Attending Unavailable [facility] SU[facility]LASTICS~[id number], CASEYLORY LOPEZ Admitting Unavailable [facility] SUPERVISOR PLASTICS~[id number], CASEYLORY LOPEZ Attending Unavailable MYNOR SUPERVISOR PLASTICS, EMILY Primary Care Unavailable SWEET, TREVA Attending Unavailable SWEET, TREVA Referring Unavailable MYNOR, EMILY Primary Care Unavailable MYNOR, EMILY Primary Care Unavailable DANIA PHIPPS Referring Unavailable MYNOR, EMILY Referring Unavailable SWEET, JOSE Attending Unavailable MYNOR, EMILY Primary Care Unavailable MYNOR, EMILY Referring Unavailable MYNOR, EMILY Primary Care Unavailable MARIZA, BRANDON Attending Unavailable MYNOR, EMILY Primary Care Unavailable EDDIE, RADHA Attending Unavailable MYNOR, EMILY Primary Care Unavailable KATYA FIGUEROA Attending Unavailable MYNOR, EMILY Primary Care Unavailable SWEET, TREVA Attending Unavailable MYNOR, EMILY Primary Care Unavailable MYONR, EMILY Attending Unavailable MYNOR, EMILY Referring Unavailable SWEET, TREVA Attending Unavailable SWEET, TREVA Referring Unavailable MYNOR, EMILY Primary Care Unavailable MYNOR, EMILY Referring Unavailable MYNOR, EMILY Primary Care Unavailable EMILY LOWE Attending Unavailable José Miguel Burris Referring Unavailable DaytonLinday Attending Unavailable Mynor BOTTOM STAINER, Emily Primary Care Unavailable Allergies Allergy Classification Reported Allergen(s) Allergy Type Date of Onset Reaction(s) Facility adalimumab (2 sources) adalimumab Drug Allergy 016 Rash, Other (See Comments), Hives [facility] Aluminum aspirin (1 source) Aluminum aspirin Drug Allergy 023 [facility] Bee/Wasp/Ant Venom (1 source) bee venom Substance Allergy 023 Anaphylaxis [facility] Corticosteroids (3 sources) predniSONE Drug Allergy 015 Hives, Other (See Comments) [facility] DOPamine Antagonists (1 source) Metoclopramide Drug Allergy 023 [facility] Macrolides (antibiotic) (2 sources) Azithromycin Drug Allergy Diarrhea [facility] mesalamine (2 sources) mesalamine Drug Allergy Hives [facility] Nitrofurantoin (2 sources) Nitrofurantoin Drug Allergy 018 Nausea Only, Other (See Comments) [facility] NSAIDs (1 source) NSAIDs Drug Allergy Other (See Comments) [facility] Opioid Agonists (1 source) Propoxyphene Drug Allergy Hives [facility] Quinolones (antibiotic) (3 sources) levoFLOXacin Drug Allergy Hives [facility] Sulfonamides (antibiotic) (2 sources) Sulfonamides (Antibiotic) Drug Allergy Hives [facility] (20 sources) adalimumab; Translations: [ADALIMUMAB] Drug Allergy Rash, Other (See Comments), [place], [place] (20 sources) Azithromycin; Translations: [AZITHROMYCIN] Drug Allergy Diarrhea, Other: See Comments [place], [place] (20 sources) levoFLOXacin; Translations: [LEVOFLOXACIN] Drug Allergy [place] (20 sources) levoFLOXacin Drug Allergy [place] (15 sources) mesalamine Drug Allergy [place] (20 sources) methylPREDNISolone Drug Allergy [place] (20 sources) Nitrofurantoin Drug Allergy 018 Nausea Only, Other (See Comments), Other [place], [place] (14 sources) NSAIDs Propensity to adverse reactions to drug Other (See Comments) [place] (20 sources) predniSONE; Translations: [PREDNISONE] Drug Allergy Hives, Other (See Comments) [place] (20 sources) Propoxyphene Drug Allergy [place] (14 sources) Sulfonamides (Antibiotic) Propensity to adverse reactions to drug Hives [place] (14 sources) Other Propensity to adverse reactions 013 Anaphylaxis [place] (1 source) Acetaminophen / Propoxyphene Drug Allergy hives [facility] Work Phone: (2 sources) adalimumab; Translations: [Humira] Drug Allergy swelling [facility] Work Phone: (2 sources) Aspirin Drug Allergy due to chrons, Other [facility] Work Phone: (1 source) Azithromycin Drug Allergy GI upset [facility] Work Phone: (1 source) House dust mite; Translations: [DUST MITES] allergy to substance nasal congenstion [facility] Work Phone: (1 source) Ibuprofen Drug Allergy Unable due to Chrons [facility] Work Phone: (1 source) [facility]FLOXacin [facility] Work Phone: (2 sources) mesalamine; Translations: [Asacol] [facility] Work Phone: (2 sources) methylPREDNISolone; Translations: [Solu-Medrol] Drug Allergy hives/ swelling [facility] Work Phone: (1 source) Mold Extract; Translations: [MOLD] Drug Allergy [facility] Work Phone: (1 source) Nitrofurantoin Drug Allergy Lethorgy [facility] Work Phone: (1 source) Propoxyphene Drug Allergy [facility] Work Phone: (1 source) Sulfacetamide Drug Allergy [facility] Work Phone: (1 source) STINGING INSECTS; Translations: [STINGING INSECTS] allergy to substance swelling [facility] Work Phone: (20 sources) methylPREDNISolone; Translations: [METHYLPREDNISOLONE SODIUM SUCC] Drug Allergy [facility] (20 sources) Metoclopramide; Translations: [METOCLOPRAMIDE] Drug Allergy Other: See [facility] (6 sources) NITROFURANTOIN, MACROCRYSTALS / Nitrofurantoin, Monohydrate; Translations: [NITROFURANTOIN MONOHYD/M-CRYST] Drug Allergy Other: See [facility] (6 sources) Non-steroidal anti-inflammatory agent; Translations: [NSAIDS (NON-STEROIDAL ANTI-INFLAMMATORY DRUG)] Propensity to adverse reactions to drug Other: See Comments [facility] (6 sources) Sulfonamides (Antibiotic); Translations: [SULFA (SULFONAMIDE ANTIBIOTICS)] Drug Allergy [facility] (6 sources) Centella Asiaticoside; Translations: [CENTELLA ASIATICOSIDE] Drug Allergy [facility] (6 sources) Propoxyphene N-Acetaminophen; Translations: [PROPOXYPHENE N-ACETAMINOPHEN] Drug Allergy [facility] (6 sources) Insect Venom; Translations: [INSECT VENOM] Drug Allergy Anaphylaxis [facility] (20 sources) adalimumab Drug Allergy [facility] (20 sources) Aluminum aspirin Drug Allergy [facility] (20 sources) bee venom Propensity to adverse reactions Anaphylaxis [facility] (20 sources) mesalamine Drug Allergy [facility] (20 sources) Nitrofurantoin Drug Allergy Other [facility] (20 sources) sulfADIAZINE Drug Allergy [facility] (1 source) Acetaminophen Drug Allergy [facility] (1 source) Bee pollen Drug Allergy Anaphylaxis [facility] (1 source) Nonsteroidal Anti-inflammatory Compounds Propensity to adverse reactions Other [facility] (1 source) Sulfonamides (Antibiotic) Allergy to substance [facility] (16 sources) Acetaminophen Drug Allergy [facility] (16 sources) Bee pollen Allergy to substance Anaphylaxis [facility] (16 sources) formoterol Drug Allergy [facility] (16 sources) Honey bee venom Drug Allergy Anaphylaxis [facility] (16 sources) House dust mite Allergy to substance [facility] (16 sources) Ibuprofen Drug Allergy [facility] (17 sources) Iothalamate Drug Allergy [facility] (16 sources) Mold Extract Drug Allergy [facility] (16 sources) Non-steroidal anti-inflammatory agent Drug Allergy Other [facility] (1 source) Aspirin Drug Allergy [facility] (1 source) Azithromycin Drug Allergy [facility] (1 source) bee venom; Translations: [bee venom (honey bee)] Propensity to adverse reactions (disorder) [facility] (1 source) formoterol Drug Allergy [facility] (1 source) levoFLOXacin Drug Allergy [facility] (1 source) Nitrofurantoin Drug Allergy [facility] (1 source) NSAIDs Drug allergy (disorder) [facility] (1 source) predniSONE Drug Allergy [facility] (1 source) Sulfonamides (Antibiotic) Drug allergy (disorder) [facility] (1 source) Acetaminophen Drug Allergy [facility] (1 source) adalimumab Drug Allergy [facility] (1 source) Aspirin Drug Allergy [facility] (1 source) Azithromycin Drug Allergy [facility] (1 source) Bee pollen Drug allergy (disorder) [facility] (1 source) levoFLOXacin Drug Allergy [facility] (1 source) mesalamine Drug Allergy [facility] (1 source) methylPREDNISolone Drug Allergy [facility] (1 source) Metoclopramide Drug Allergy [facility] (1 source) Nitrofurantoin Drug Allergy [facility] (1 source) NSAIDs Drug allergy (disorder) [facility] (1 source) predniSONE Drug Allergy [facility] (1 source) Propoxyphene Drug Allergy [facility] (1 source) Sulfonamides (Antibiotic) Drug allergy (disorder) [facility] NEGATED: Highlighted row has been ruled out!Unclassified (1 source) Other Propensity to adverse reactions 013 Anaphylaxis [facility] Medications Current Medications Medication Drug Class(es) Dates Sig (Normalized) Sig (Original) acetaminophen 500 mg oral tablet (5 sources) acetaminophen (TYLENOL EX STR RAPID RELEASE ORAL) Take 500 mg by mouth as needed. Active Comment on above: Take 500 mg by mouth as needed. anastrozole 1 mg oral tablet (20 sources) Aromatase Inhibitor Start: 09-30-2020 take 1 tablet by mouth once daily anastrozole (ARIMIDEX) 1 MG tablet take 1 tablet by mouth once daily 90 tablet 0 09/30/2020 Active Start: 03-13-2020 ARIMIDEX 1 MG TABS takes 1 tablet once daily ANASTROZOLE [id number] Analy Kyle LPN Start: 07-24-2019 take 1 tablet by lizandro th once daily anastrozole (ARIMIDEX) 1 MG tablet Take 1 tablet by mouth daily 90 tablet 3 07/24/2019 Active Start: 01-14-2019 take 1 tablet by lizandro th once daily anastrozole (ARIMIDEX) 1 MG tablet Take 1 tablet by mouth daily 90 tablet 3 01/14/2019 Active Start: 12-01-2017 take 1 tablet by lizandro th once daily anastrozole (ARIMIDEX) 1 MG tablet Take 1 tablet by mouth daily 90 tablet 3 12/01/2017 Active End: 10-07-2024 anastrozole (Arimidex) 1 MG tablet Every 24 hours. 10/07/2024 Discontinued (Therapy completed) atorvastatin 20 mg oral tablet (20 sources) HMG-CoA Reductase Inhibitor Start: 01-03-2015 End: 10-07-2024 atorvastatin (LIPITOR) 20 MG tablet 20 mg nightly 0 01/03/2015 Active End: 10-08-2024 take 1 tablet by mouth once daily atorvastatin (Lipitor) 40 MG tablet Take 1 tablet by mouth daily. 10/08/2024 Discontinued (Therapy completed) End: 10-07-2024 take 1 tablet by mouth in the morning atorvastatin (Lipitor) 10 MG tablet Take 10 mg by mouth in the morning. 10/07/2024 Discontinued atropine sulfate 0.025 mg / diphenoxylate hydrochloride 2.5 mg oral tablet (20 sources) Anticholinergic, Cholinergic Muscarinic Antagonist, Antidiarrheal Start: 05-11-2023 take 1 tablet by mouth every six hours Diphenoxylate-Atropine (Lomotil) 2.5-0.025 mg tablet Active 1 TABLET PO EVERY 6 HOURS May 11, 2023 12:00am Start: 03-13-2020 LOMOTIL 2.5-0. 025 MG TABS as needed as directed DIPHENOXYLATE-ATROPINE [id number] Analy Kyle LPN take 2 tablets by mo uth four times daily as needed diphenoxylate-atropine (Lomotil) 2.5-0.025 MG tablet Take 2 tablets 4 times a day by oral route as needed. Active Catheter 14-16 Fr- misc (3 sources) Start: 01-24-2023 End: 04-24-2023 Catheter 14-16 Fr- misc Ind ications: Urine retention 1 Each two times a day. 180 medical 60 Each 11 01/24/2023 04/24/2023 Active Start: 01-24-2023 End: 01-24-2023 Catheter 14-16 Fr- misc Ind ications: Urine retention 1 Each two times a day. 180 medical 60 Each 11 01/24/2023 01/24/2023 Discontinued Comment on above: 1 Each two times a d ay. 180 medical cetirizine hydrochloride 10 mg oral capsule (20 sources) Histamine-1 Receptor Antagonist Start: take 1 capsule by mouth once daily Cetirizine (All Day Allergy (Cetirizine)) 10 mg capsule Active 10 MG PO DAILY May 11, 2023 12:00am Start: 11-27-2015 ZYRTEC ALLERGY 10 MG CAPS takes 1 capsule once a day CETIRIZINE HCL [id number] Shonda Currie [employer] ACCOUNTING MANAGER Start: 01-09-2015 take 1 tablet by lizandro th once daily at bedtime cetirizine (ZYRTEC) 10 mg tablet Take 10 mg by mouth daily at bedtime. 01/13/2023 Active Comment on above: Take 10 mg by mouth daily at bedtime. dicyclomine hydrochloride 20 mg oral tablet (20 sources) Anticholinergic Start: 07-11-2023 dicyclomine (Bentyl) 20 MG tablet 07/11/2023 Active Start: 05-11-2023 take 20 mg by mouth four times daily Dicyclomine Active 20 MG PO .qid May 11, 2023 12:00am Start: 11-27-2015 DICYCLOMINE HC L 10 MG CAPS 2 capsules as needed as directed DICYCLOMINE HCL [id number] Analy Saroj [employer] ACCOUNTING MANAGER End: 10-08-2024 take 1 capsule by mouth three times daily as needed for pain dicyclomine (Bentyl) 10 MG capsule 1 CAPSULE ORALLY THREE TIMES A DAY NEEDED FOR ABDOMINAL PAIN 90 DAYS 10/08/2024 Discontinued (Therapy completed) End: 10-08-2024 take 2 capsules by mouth four times daily as needed dicyclomine (Bentyl) 10 MG/ML injection 2 caps orally four times a day as needed 10/08/2024 Discontinued (Therapy completed) diphenhydrAMINE hydrochloride 25 mg oral tablet (15 sources) Histamine-1 Receptor Antagonist diphenhydrAMINE (BENADryl) 25 MG tablet Take 25 mg by mouth. Active [id number] 0.3 ml EPINEPHrine 1 mg/ml auto-injector (20 sources) alpha-Adrenergic Agonist, beta-Adrenergic Agonist, Catecholamine Start: 12-21-2015 EPIPEN 2-ERYN 0.3 MG/0.3ML SOAJ injection as needed 0 12/21/2015 Active EPINEPHrine (Epi pen) 0.3 MG/0.3ML injection syringe TAKE 1 AUTO EVERY DAY BY INJECTION ROUTE NEEDED. Active ezetimibe 10 mg oral tablet (20 sources) Dietary Cholesterol Absorption Inhibitor Start: 05-11-2023 take 1 tablet by mouth once daily ezetimibe (ZETIA) 10 mg tablet Take 10 mg by mouth once daily. 05/11/2023 Active 12 hr fexofenadine hydrochloride 60 mg / pseudoephedrine hydrochloride 120 mg extended release oral tablet (15 sources) alpha-Adrenergic Agonist, Histamine-1 Receptor Antagonist take 60-120 mg by mouth every twelve hours fexofenadine-pseu doephedrine ER (Taryn-D) 60-120 MG 12 hr tablet Take 1 tablet by mouth. Active folic acid 1 mg oral tablet (20 sources) Start: 03-03-2015 take 1 tablet by mouth once daily at bedtime folic acid 1 mg tablet Take 1 mg by mouth daily at bedtime. 01/16/2023 Active Comment on above: Take 1 mg by mouth d aily at bedtime. glimepiride 4 mg oral tablet (20 sources) Sulfonylurea Start: 05-11-2023 take 8 mg by mouth at bedtime as needed Glimepiride Active 8 MG PO AT BEDTIME NEEDED May 11, 2023 12:00am Start: 01-13-2023 take 2 tablets by mo uth once daily at bedtime glimepiride (AMARYL) 4 mg tablet Take 8 mg by mouth daily at bedtime. 01/13/2023 Active take 1 tablet by lizandro th once daily before breakfast, then take 2 tablets by mouth once daily glimepiride (Amaryl) 4 MG tablet Take 4 mg by mouth every morning (before breakfast). 2 daily Active Comment on above: Take 8 mg by mouth d aily at bedtime. 250 ml heparin sodium, porcine 100 unt/ml injection (12 sources) Unfractionated Heparin, Anti-coagulant Start: 05-24-2019 heparin flush 100 UNIT/ML injection 500 Units Start: 04-26-2019 heparin flush 100 UNIT/ML injection 500 Units Start: 04-12-2019 End: 04-13-2019 heparin flush 100 UNIT/ML in jection 500 Units Start: 03-29-2019 End: 03-29-2019 heparin flush 100 UNIT/ML in jection Start: 03-15-2019 heparin flush 100 UNIT/ML injection 500 Units Start: 03-01-2019 heparin flush 100 UNIT/ML injection 500 Units Start: 02-15-2019 End: 02-16-2019 heparin flush 100 UNIT/ML in jection 500 Units Start: 02-01-2019 End: 02-01-2019 heparin flush 100 UNIT/ML in jection Start: 01-04-2019 heparin flush 100 UNIT/ML injection 500 Units Start: 12-21-2018 End: 12-22-2018 heparin flush 100 UNIT/ML in jection 500 Units Insulin Glargine (20 sources) Insulin Analog inject 84 [IU] by subcutaneous injection once daily Insulin Glargine (TOUJEO MAX SOLOSTAR SC) Inject under the skin. 84 units daily Active insulin glargine U-300 conc (TOUJEO MAX U-300 SOLOSTAR) 300 unit/mL (3 mL) inpn Inject 84 Units subcutaneously once daily. Active inject 84 [IU] by prajapati bcutaneous injection once daily Insulin Glargine (TOUJEO MAX SOLOSTAR SC ) Inject under the skin. 84 units daily 0 Active Comment on above: Inject 84 Units subc utaneously once daily. Insulin Glargine U-300 Conc (Toujeo Max U-300 Solostar) 300 unit/mL (3 mL) insulin pen (1 source) Start: 05-11-19 24 Insulin Glargine U-300 Conc (Toujeo Max U-300 Solostar) 300 unit/mL (3 mL) insulin pen Active 84 UNIT SC DAILY May 11, 2023 12:00am ipratropium bromide 0.021 mg/actuat metered dose nasal spray (15 sources) Anticholinergic Start: 01-01-20 24 ipratropium (Atrovent) 0.03 % nasal spray 01/01/2024 Active ammonium lactate 120 mg/ml topical lotion (14 sources) Start: 03-06-20 24 ammonium lactate (Lac-Hydrin) 12 % lotion Indications: Xerosis cutis Apply topically once a day. 225 g 2 03/06/2024 Active lomitapide 5 mg oral capsule (5 sources) Microsomal Triglyceride Transfer Protein Inhibitor take 5 mg by mouth once daily at bedtime lomitapide mesylate (LOMITAPIDE ORAL) Take 5 mg by mouth daily at bedtime. Active Comment on above: Take 5 mg by mouth d aily at bedtime. loratadine 10 mg oral tablet (2 sources) Start: 05-11-19 take 1 tablet by mouth once daily Loratadine (Allerclear) 10 mg tablet Active 10 MG PO DAILY May 11, 2023 12:00am Start: 11-27-2015 CLARITIN 10 MG TABS takes 1 tablet as needed LORATADINE [id number] [facility] hydrochloride 1000 mg oral tablet (20 sources) Biguanide Start: 01-16-2023 take 1 tablet by mouth twice daily metFORMIN (GLUCOPHAGE) 1,000 mg tablet Take 1 tablet by mouth two times a day. 01/16/2023 Active Start: 03-13-2020 METFORMIN HCL 1000 MG TABS takes 1 tablet in the morning METFORMIN HCL [id number] [facility] Start: 03-13-2020 METFORMIN HCL 500 MG TABS takes 3 tablets at bedtime [facility] [id number] [facility] Start: 01-06-2017 take 1 tablet by lizandro th twice daily at mealtime metFORMIN (GLUCOPHAGE) 500 MG tablet take 1 tablet by mouth twice a day with meals 0 01/06/2017 Active take 1 tablet by lizandro th in the morning, then take 1 tablet by mouth every twenty-four hours at mealtime metFORMIN, MOD, (Glumetza) 1000 MG 24 hr tablet Take 1,000 mg by mouth in the morning and 1,000 mg in the evening. Take with meals. Do not crush, chew, or split.. Active Comment on above: Take 1 tablet by lizandro th two times a day. methotrexate 2.5 mg/ml oral solution (20 sources) Folate Analog Metabolic Inhibitor Start: take 25 mg by mouth every week Methotrexate Active 25 MG PO EVERY WEEK May 11, 2023 12:00am Start: 01-16-2023 methotrexate 2 .5 mg tablet Take 2.5 mg by mouth one time a week. 10 tablets 01/16/2023 Active Start: 02-06-2015 take 8 tablets by mo uth every week methotrexate (RHEUMATREX) 2.5 MG chemo tablet Indications: 8 TABLETS ONCE A WEEK ON MONDAYS Take by mouth once a week 0 02/06/2015 Active Comment on above: Take 2.5 mg by mouth one time a week. 10 tablets 24 hr metoprolol succinate 100 mg extended release oral capsule (20 sources) beta-Adrenergic Sharee Start: 05-11-2023 take 1 capsule by mouth once daily, then take 1 capsule by mouth every twenty-four hours Metoprolol Succinate (Kapspargo Sprinkle) 100 mg capsule,sprinkle,ER 24hr Active 100 MG PO DAILY May 11, 2023 12:00am Start: 01-16-2023 take 1 tablet by lizandro th once daily metoprolol succinate ER (TOPROL XL) 100 mg Take 1 tablet by mouth once daily. 01/16/2023 Active Start: 01-15-2015 metoprolol suc cinate (TOPROL XL) 50 MG extended release tablet 50 mg nightly 0 01/15/2015 Active take 1 tablet by lizandro th every twenty-four hours metoprolol succinate XL (Toprol-XL) 100 MG 24 hr tablet Take 100 mg by mouth. Do not crush or chew. Active Comment on above: Take 1 tablet by lizandro th once daily. omega-3 acid ethyl esters (long-term) 1000 mg oral capsule (20 sources) Start: 01-03-2015 omega-3 acid ethyl esters (LOVAZA) 1 G capsule Indications: 4 TABLETS AT BEDTIME Take by mouth 0 01/03/2015 Active End: 10-08-2024 take 1 capsule by mouth in the morning omega-3 acid ethyl esters (Lovaza) 1 g capsule Take 1,000 mg by mouth in the morning. 10/08/2024 Discontinued (Therapy completed) omeprazole 40 mg delayed release oral capsule (20 sources) Proton Pump Inhibitor Start: 01-13-2023 take 1 capsule by mouth once daily omeprazole (PRILOSEC) 40 mg capsule Take 40 mg by mouth once daily. 01/13/2023 Active Start: 11-27-2015 OMEPRAZOLE 40 MG CPDR takes 1 capsule twice daily OMEPRAZOLE [id number] Analy Kyle LPN Start: 02-27-2015 take 2 capsules by m outh twice daily omeprazole (PRILOSEC) 20 MG capsule Take 40 mg by mouth 2 times daily 0 02/27/2015 Active Start: 02-27-2015 omeprazole (MO ILOSEC) 20 MG capsule Take by mouth nightly 0 02/27/2015 Active Comment on above: Take 40 mg by mouth once daily. ondansetron 8 mg oral tablet (20 sources) Serotonin-3 Receptor Antagonist Start: 05-11-2023 take 8 mg by mouth twice daily Ondansetron Hcl Active 8 MG PO TWICE A DAY May 11, 2023 12:00am Start: 11-27-2015 ZOFRAN 8 MG TA BS takes 1 tablet twice daily and as needed ONDANSETRON HCL [id number] Analy Kyle LPN ondansetron (Zof ran) 8 MG tablet Take by mouth every 8 hours as needed for nausea or vomiting. Active take 1 tablet by lizandro th every eight hours as needed ondansetron ODT (Zofran-ODT) 8 MG disintegrating tablet Take 8 mg by mouth every 8 hours as needed. Active ondansetron (ZOF RAN) 24 MG tablet Take 8 mg by mouth as needed 0 Active promethazine hydrochloride 12.5 mg oral tablet (20 sources) Phenothiazine Start: 05-11-2023 take 25 mg by mouth every twelve hours Promethazine Active 25 MG PO Q12H May 11, 2023 12:00am Start: 01-13-2023 take 1 tablet by lizandro th every twenty-four hours as needed promethazine (PHENERGAN) 25 mg tablet Take 25 mg by mouth at bedtime as needed. 01/13/2023 Active Start: 03-13-2020 PROMETHAZINE H CL 25 MG TABS takes as needed as directed PROMETHAZINE HCL [id number] Analy Kyle LPN promethazine (Ph energan) 25 MG tablet Take by mouth every 8 hours as needed for nausea or vomiting. Active take 1 tablet by lizandro th every six hours as needed for nausea promethazine (PHENERGAN) 25 MG tablet Take 25 mg by mouth every 6 hours as needed for Nausea 0 Active Comment on above: Take 25 mg by mouth at bedtime as needed. rosuvastatin calcium 40 mg oral tablet (20 sources) HMG-CoA Reductase Inhibitor Start: take 1 tablet by mouth once daily rosuvastatin (CRESTOR) 40 mg tablet Take 40 mg by mouth once daily. 01/13/2023 Active Comment on above: Take 40 mg by mouth once daily. semaglutide 14 mg oral tablet (20 sources) Start: 4 take 1 tablet by mouth once daily Semaglutide (Rybelsus) 14 mg tablet Active 14 MG PO DAILY May 11, 2023 12:00am Start: 01-13-2023 take 1 tablet by lizandro th once daily RYBELSUS 7 mg tablet Take 7 mg by mouth once daily. 01/13/2023 Active Comment on above: Take 7 mg by mouth o nce daily. 3 ml sodium chloride 9 mg/ml injection (18 sources) Start: 05-24-2019 sodium chloride flush 0.9 % injection 10 mL Start: 05-24-2019 End: 05-24-2019 0.9 % sodium chloride bolus Start: 04-26-2019 sodium chlorid e flush 0.9 % injection 10 mL Start: 04-26-2019 End: 04-26-2019 0.9 % sodium chloride bolus Start: 04-12-2019 End: 04-13-2019 sodium chloride flush 0.9 % injection 10 mL Start: 04-12-2019 End: 04-12-2019 0.9 % sodium chloride bolus Start: 03-29-2019 sodium chlorid e flush 0.9 % injection 10 mL Start: 03-29-2019 End: 03-29-2019 0.9 % sodium chloride bolus Start: 03-15-2019 End: 03-15-2019 0.9 % sodium chloride bolus Start: 03-01-2019 sodium chlorid e flush 0.9 % injection 10 mL Start: 03-01-2019 End: 03-01-2019 0.9 % sodium chloride bolus Start: 02-15-2019 End: 02-16-2019 sodium chloride flush 0.9 % injection 10 mL Start: 02-15-2019 End: 02-15-2019 0.9 % sodium chloride bolus Start: 02-01-2019 End: 02-01-2019 0.9 % sodium chloride bolus Start: 01-04-2019 sodium chlorid e flush 0.9 % injection 10 mL Start: 01-04-2019 End: 01-04-2019 0.9 % sodium chloride bolus Start: 12-21-2018 End: 12-22-2018 sodium chloride flush 0.9 % injection 10 mL Start: 12-21-2018 End: 12-21-2018 0.9 % sodium chloride bolus sodium chloride 0.9 % SOLN 250 mL with vedolizumab 300 MG SOLR 300 mg (15 sources) take 300 mg intravenous route once, then take 300 mg intravenous route, then take 300 mg intravenous route sodium chloride 0.9 % SOLN 250 mL with vedolizumab 300 MG SOLR 300 mg Indications: once ryan 8 weeks, entyvio Infuse 300 mg intravenously once Indications: once ryan 8 weeks, entyvio 0 Active tiZANidine 4 mg oral capsule (20 sources) Central alpha-2 Adrenergic Agonist Start: 05-11-19 Tizanidine (Zanaflex) 4 mg capsule Active 8 MG PO AT BEDTIME May 11, 2023 12:00am Start: 01-17-2023 tiZANidine (ZA NAFLEX) 4 mg tablet Take 4 mg by mouth daily at bedtime. Takes 8 MG 01/17/2023 Active Start: 01-11-2015 tiZANidine (ZA NAFLEX) 4 MG tablet Take 8 mg by mouth nightly 0 01/11/2015 Active take 1 tablet by lizandro th every six hours as needed tiZANidine (Zanaflex) 4 MG tablet Take 4 mg by mouth every 6 hours as needed for muscle spasms. 2 at bedtime Active Comment on above: Take 4 mg by mouth d aily at bedtime. Takes 8 MG traZODone hydrochloride 100 mg oral tablet (20 sources) Serotonin Reuptake Inhibitor Start: 02-06-20 take 1 tablet by mouth once daily at bedtime traZODone (DESYREL) 100 mg tablet Take 100 mg by mouth daily at bedtime. 01/16/2023 Active Comment on above: Take 100 mg by mouth daily at bedtime. 24 hr venlafaxine 37.5 mg extended release oral capsule (20 sources) Serotonin and Norepinephrine Reuptake Inhibitor Start: 05-11-19 take 1 capsule by mouth every twenty-four hours at bedtime Venlafaxine (Effexor Xr) 37.5 mg capsule,extended release 24hr Active 37.5 MG PO AT BEDTIME May 11, 2023 12:00am Start: 01-13-2023 take 1 tablet by lizandro th once daily at bedtime venlafaxine (EFFEXOR) 37.5 mg tablet Take 37.5 mg by mouth daily at bedtime. 01/13/2023 Active Start: 03-13-2020 VENLAFAXINE HC L 37.5 MG TABS takes 1 tablet daily VENLAFAXINE HCL [id number] Analy Kyle LPN Start: 12-01-2017 take 1 capsule by mo uth once daily venlafaxine (EFFEXOR XR) 37.5 MG extended release capsule Take 1 capsule by mouth daily 90 capsule 3 07/24/2019 Active Comment on above: Take 37.5 mg by mout h daily at bedtime. Completed/Discontinued Medications Medication Drug Class(es) Dates Sig (Normalized) Sig (Original) Acetaminophen / HYDROcodone (20 sources) Opioid Agonist Start: 11-27-2015 take 2 tablets by mouth at bedtime VICODIN 5-300 MG ORAL TABLET takes 2 tablets at bedtime HYDROCODONE-ACETA MINOPHEN Analy Kyle LPN End: 10-07-2024 take 1 tablet by mouth once daily at bedtime HYDROcodone-acetaminophen (Vicodin) 5-30 0 MG tablet 1 tab(s) orally qhs 10/07/2024 Discontinued (Therapy completed) End: 10-07-2024 take 2 tablets by mouth once daily HYDROcodone-acetaminophen ([place]) 5-325 MG tablet Take 2 tablets by mouth Nightly. 10/07/2024 Discontinued (Therapy completed) amylase [id number] unt / lipase 72125 unt / protease [id number] unt delayed release oral capsule (4 sources) End: 10-07-2024 pancrelipase, Cdp-Buho-Juwi, (Creon) 29555-141911 units capsule delayed-release particles capsule 1 cap(s) orally 3-5 times a day 10/07/2024 Discontinued (Therapy completed) cephalexin 500 mg oral capsule (7 sources) Cephalosporin Antibacterial Start: 02-02-2024 End: 10-08-2024 take 1 capsule by mouth three times daily cephalexin (Keflex) 500 MG capsule TAKE ONE CAPSULE BY MOUTH THREE TIMES DAILY FOR 7 DAYS 02/02/2024 10/08/2024 Discontinued (Therapy completed) fluconazole 200 mg oral tablet (15 sources) Azole Antifungal Start: 11-07-2023 End: 11-13-2024 fluconazole (Diflucan) 200 MG tablet 11/07/2023 11/13/2024 Discontinued Magnesium (1 source) Start: 03-13-2020 MAGNESIUM 500 MG TABS takes 1 tablet daily MAGNESIUM [id number] Analy Kyle LPN magnesium oxide 500 mg oral capsule (20 sources) End: 10-08-2024 Magnesium 500 MG capsule Take by mouth Nightly. 10/08/2024 Discontinued (Therapy completed) metoclopramide 10 mg oral tablet (11 sources) Dopamine-2 Receptor Antagonist Start: 03-13-2020 REGLAN 10 MG TABS takes 1 tablet twice daily and as needed METOCLOPRAMIDE HCL [id number] Analy Kyle LPN Start: 06-12-2019 End: 10-08-2024 take 1 tablet by mouth 30 minutes before mealtime metoclopramide (REGLAN) 10 MG tablet take 1 tablet by mouth 30 MINUTES BEFORE MEALS AND 1 TABLET BY MOUTH BEFORE BED 0 06/12/2019 Active Teduglutide, rDNA, (GATTEX SC) (1 source) End: 12-21-2018 Teduglutide, rDNA, (GATTEX SC) Inject 0.39 mLs into the skin daily 0 12/21/2018 Discontinued (Therapy completed) vedolizumab 300 mg injection (20 sources) Integrin Receptor Antagonist Start: 11-27-2015 ENTYVIO 300 MG SOLR every 8 weeks VEDOLIZUMAB [id number] Analy Kyle LPN Comment on above: Inject 300 mg intrav enously every 8 weeks. vedolizumab (ENTYVIO) 300 mg in sodium chloride 0.9 % 250 mL infusion (3 sources) Start: 04-12-2019 End: 04-12-2019 vedolizumab (ENTYVIO) 300 mg in sodium chloride 0.9 % 250 mL infusion Start: 02-15-2019 End: 02-15-2019 vedolizumab (ENTYVIO) 300 mg in sodium chloride 0.9 % 250 mL infusion Start: 12-21-2018 End: 12-21-2018 vedolizumab (ENTYVIO) 300 mg in sodium chloride 0.9 % 250 mL infusion vitamin e 180 mg oral capsul e (20 sources) End: 10-08-2024 alpha tocopherol (Vitamin E) 400 units capsule Take 800 Units by mouth. 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] Onset: 08-17-2018 08-17-2018 Chronic Conditions associated with dizziness or vertigo (1 source) Dizziness; Translations: [Dizziness and giddiness] 11-13-2024 Episodic Diabetes mellitus with complications (1 source) Type 2 diabetes mellitus with hyperglycemia; Translations: [Type 2 diabetes mellitus with hyperglycemia] Onset: 10-04-2024 Chronic Disorders of lipid metabolism (1 source) Hyperlipidemia, unspecified; Translations: [Hyperlipidemia, unspecified] Onset: 10-04-2024 Chronic Nonmalignant breast conditions (1 source) Discharge from left nipple; Translations: [Discharge from left nipple] Other aftercare (2 sources) Encounter for adjustment and management of vascular access device; Translations: [ENC ADJUSTMENT AND MANAGEMENT VAD] Onset: 09-23-2024 Episodic Other and unspecified benign neoplasm (2 sources) Multiple benign melanocytic nevi ; Translations: [Melanocytic nevi of right upper limb, including shoulder] 03-06-2024 Episodic Other and unspecified benign neoplasm (1 source) Dermatofibroma; Translations: [Other benign neoplasm of skin, unspecified] 03-06-2024 Episodic Other and unspecified benign neoplasm (1 source) Senile angioma; Translations: [Hemangioma of skin and subcutaneous tissue] 10-08-2024 Episodic Other and unspecified benign neoplasm (1 source) Lipoma of left upper limb; Translations: [Benign lipomatous neoplasm of skin and subcutaneous tissue of left arm] 10-08-2024 Episodic Other and unspecified benign neoplasm (2 sources) Hemangioma of skin and subcutaneous tissue; Translations: [Hemangioma of skin and subcutaneous tissue] Onset: 10-08-2024 Episodic Other and unspecified benign neoplasm (2 sources) Benign lipomatous neoplasm of skin and subcutaneous tissue of left arm; Translations: [Benign lipomatous neoplasm of skin and subcutaneous tissue of left arm] Onset: 10-08-2024 Episodic Other connective tissue disease (1 source) Pain in right hand; Translations: [Pain in right hand] 02-09-2024 Episodic Other connective tissue disease (1 source) Dupuytren contracture of right palm; Translations: [Palmar fascial fibromatosis [Dupuytren]] 02-15-2024 Episodic Other connective tissue disease (1 source) Adhesive capsulitis of right shoulder; Translations: [Adhesive capsulitis of right shoulder] Onset: 03-13-2020 03-13-2020 Other diseases of kidney and ureters (1 source) Cyst of kidney; Translations: [Cyst of kidney, acquired] 01-24-2023 Episodic Other diseases of veins and lymphatics (1 source) Venous insufficiency (chronic) (peripheral); Translations: [VENOUS INSUFF CHRONIC PERIPHERAL] Onset: 09-23-2024 Episodic Other nervous system disorders (14 sources) Numbness; Translations: [Anesthesia of skin] 10-07-2024 Episodic Other nervous system disorders (1 source) Numbness and tingling sensation of skin; Translations: [Anesthesia of skin] 11-13-2024 Episodic Other nervous system disorders (2 sources) Anesthesia of skin; Translations: [Anesthesia of skin] Onset: 10-11-2024 Episodic Other screening for suspected conditions (not mental disorders or infectious disease) (8 sources) Mammography abnormal; Translations: [Other abnormal and inconclusive findings on diagnostic imaging of breast] Onset: 10-14-2024 03-22-2023 Episodic Other skin disorders (2 sources) Seborrheic keratosis; Translations: [Other seborrheic keratosis] 03-06-2024 Episodic Other skin disorders (1 source) Multiple skin tags; Translations: [Other hypertrophic disorders of the skin] 03-06-2024 Episodic Other skin disorders (2 sources) Asteatosis cutis; Translations: [Xerosis cutis] Onset: 10-08-2024 03-06-2024 Episodic Other skin disorders (1 source) Solar lentigo; Translations: [Other melanin hyperpigmentation] 10-08-2024 Episodic Other skin disorders (2 sources) Trichilemmal cyst; Translations: [Pilar cyst] Onset: 10-08-2024 10-08-2024 Episodic Other skin disorders (1 source) Keratosis pilaris; Translations: [Other specified epidermal thickening] 10-08-2024 Episodic Other skin disorders (1 source) Xerosis cutis; Translations: [Xerosis cutis] Onset: 10-08-2024 Episodic Other skin disorders (2 sources) Other melanin hyperpigmentation; Translations: [Other melanin hyperpigmentation] Onset: 10-08-2024 Episodic Other skin disorders (1 source) Pilar cyst; Translations: [Pilar cyst] Onset: 10-08-2024 Episodic Regional enteritis and ulcerative colitis (20 sources) Crohn's disease of small AND large intestines; Translations: [Crohn's disease of both small and large intestine with intestinal obstruction] Onset: 03-04-2015 03-04-2015 Chronic Residual codes; unclassified (1 source) Insomnia, unspecified; Translations: [Insomnia, unspecified] Onset: 10-04-2024 Episodic Unclassified (1 source) Breast finding ; Translations: [Personal history of breast implant removal] Onset: 03-14-2016 03-14-2016 Past or Other Problems Problem Classification Problem Date Documented Date Episodic/Chronic Cancer of breast (20 sources) History of malignant neoplasm of breast; Translations: [Encounter for follow-up examination after completed treatment for malignant neoplasm] Onset: 6 03-11-2016 Episodic Complication of device; implant or graft (1 source) Capsular breast contracture of breast implant; Translations: [Capsular contracture of breast implant, initial encounter] Onset: 6 11-30-2015 Episodic Genitourinary symptoms and ill-defined conditions (7 sources) Retention of urine; Translations: [Retention of urine, unspecified] Onset: 5 01-24-2023 Episodic Nausea and vomiting (1 source) Nausea; Translations: [NAUSEA] Onset: 4 Episodic Nonmalignant breast conditions (20 sources) Mammographic microcalcification of breast; Translations: [Microcalcifications of the breast] Onset: 6 06-05-2015 Episodic Other and unspecified benign neoplasm (2 sources) Melanocytic nevi of right upper limb, including shoulder; Translations: [Melanocytic nevi of right upper limb, including shoulder] Onset: 4 Episodic Other and unspecified benign neoplasm (2 sources) Melanocytic nevi of trunk; Translations: [Melanocytic nevi of trunk] Onset: 4 Episodic Other and unspecified benign neoplasm (2 sources) Melanocytic nevi of left upper limb, including shoulder; Translations: [Melanocytic nevi of left upper limb, including shoulder] Onset: 4 Episodic Other and unspecified benign neoplasm (2 sources) Melanocytic nevi of right lower limb, including hip; Translations: [Melanocytic nevi of right lower limb, including hip] Onset: 4 Episodic Other and unspecified benign neoplasm (2 sources) Melanocytic nevi of left lower limb, including hip; Translations: [Melanocytic nevi of left lower limb, including hip] Onset: 4 Episodic Other and unspecified benign neoplasm (2 sources) Other benign neoplasm of skin, unspecified; Translations: [Other benign neoplasm of skin, unspecified] Onset: 4 Episodic Other connective tissue disease (2 sources) Pain in right hand; Translations: [Pain in right hand] Onset: 4 Episodic Other connective tissue disease (2 sources) Palmar fascial fibromatosis [Dupuytren]; Translations: [Palmar fascial fibromatosis (dupuytren)] Onset: 4 Episodic Other skin disorders (2 sources) Other seborrheic keratosis; Translations: [Other seborrheic keratosis] Onset: 4 Episodic Other skin disorders (2 sources) Other hypertrophic disorders of the skin; Translations: [Other hypertrophic disorders of the skin] Onset: 4 Episodic Residual codes; unclassified (1 source) History of augmentation of breast; Translations: [Other specified postprocedural states] Onset: 6 01-04-2016 Episodic Residual codes; unclassified (2 sources) Early satiety; Translations: [EARLY SATIETY] Onset: 4 Episodic Unclassified (1 source) Problem Results Test Name Value Interpretation Reference Range Facility Office Visiton 11-13-2024 Follow-up visit [id number] Ragini Mensah 1970 F Date Provider Department Center 11/13/2024 [id number] None Family History Problem Relation Age of Onset Thyroid disease Mother Skin cancer Sister 47 Uterine cancer Maternal Grandmother 32 Lung cancer Maternal Grandfather 75 Skin cancer Mother's Sister 58 Breast cancer Mother's Sister 83 Breast cancer Maternal Cousin 30 - 39 Breast cancer Maternal Cousin 68 Breast cancer Maternal Cousin 50 - 59 Breast cancer Maternal Great-Grandmother 78 Family Status - Relation Status Age at Mother Father Sister Alive Maternal Grandmother Maternal Grandfather Paternal Grandmother Paternal Grandfather Mother's Sister Alive Maternal Cousin Alive Maternal Cousin Alive Maternal Cousin Alive Maternal Great-Grandmother Level of Service:[id number] MO OFFICE/OUTPATIENT NEW MODERATE MDM 45 MINUTES Reason for Visit and Comments: Follow-up [[id number]] - 5 week follow up, dizziness - off and on pt states it worsens with movement Normal [facility] Progress Noteon 11-13-2024 Progress Note Department of Neurol ogical Sciences Visit Note CHIEF COMPLAINT: Chief Complaint Patient presents with Follow-up 5 week follow up, dizziness - off and on pt states it worsens with movement Main diagnoses: Dizziness and numbness. HISTORY OF PRESENT ILLNESS: The patient is a 54 y.o. female today presents to the Neurology clinic with history of numbness and dizziness. Patient was evaluated in the neurology clinic about 6 weeks ago. At that time patient was presenting with episodes of dizziness also complaining of numbness affecting both upper and lower extremities. Patient is known to have diabetes mellitus. In the initial evaluation patient had decreased pinprick and light touch in both upper and lower extremities. Patient was sent for an MRI of the brain, EMG of the right upper and lower extremity and laboratory testing for neuropathy. 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 Patient also had carpal tunnel syndrome in the right upper extremity. The MRI of the brain shows microangiopathy with no significant atrophy. Nightly laboratory testing was only positive for a hemoglobin A1c of 9.2. Secundary diagnoses: Diabetes mellitus Medications: Current Medications[1] Allergies: Bee pollen, Bee venom, Dust mite extract, Honey bee venom, Ibuprofen, Molds & smuts, Propoxyphene, Nsaids, Acetaminophen, Asa [aspirin], Asacol [mesalamine], Formoterol, Humira [adalimumab], Iothalamate, Levaquin [levofloxacin], Levofloxacin in d5w, Macrobid [nitrofurantoin], Methylprednisolone sodium succ, Nitrofurantoin macrocrystal, Reglan [metoclopramide], Solu-medrol [methylprednisolone], Sulfadiazine, and Zithromax [azithromycin] Social History: Social History Socioeconomic History Marital status: Spouse name: Not on file Number of children: Not on file Years of education: Not on file Highest education level: Not on file Occupational History Not on file Tobacco Use Smoking status: Former Current packs/day: 0.00 Average packs/day: 0.5 packs/day for 25.0 years (12.5 ttl pk-yrs) Types: Cigarettes Start date: 01/25/1993 Quit date: 01/25/2018 Years since quittin.8 Passive exposure: Past Smokeless tobacco: Never Vaping Use Vaping status: Never Used Substance and Sexual Activity Alcohol use: No Alcohol/week: 0.0 standard drinks of alcohol Drug use: No Sexual activity: Not on file Other Topics Concern Not on file Social History Narrative Not on file Social Drivers of Health Financial Resource Strain: Not on file Food Insecurity: Not on file Transportation Needs: Not on file Physical Activity: Not on file Stress: Not on file Social Connections: Not on file Intimate Partner Violence: Not on file Housing Stability: Not on file Family History: Family History[2] REVIEW OF SYSTEMS: Review of Systems Constitutional: Positive for fatigue. HENT: Negative. Eyes: Negative. Respiratory: Negative. Cardiovascular: Positive for palpitations. Gastrointestinal: Positive for nausea. Endocrine: Negative. Genitourinary: Negative. Musculoskeletal: Positive for arthralgias, back pain and neck stiffness. Skin: Negative. Allergic/Immunologic: Negative. Neurological: Positive for dizziness, weakness and numbness. Hematological: Negative. Psychiatric/Behavioral: Positive for sleep disturbance. The patient is nervous/anxious. PHYSICAL EXAM: Vitals: BP 122/88 Ht 5' 6 (1.676 m) Wt 185 lb (83.9 kg) BMI 29.86 kg/m? Constitutional: Appearance: Normal appearance. HENT: Head: Normocephalic and atraumatic. Nose: Nose normal. Mouth/Throat: Mouth: Mucous membranes are moist. Pharynx: Oropharynx is clear. Eyes: General: Vision grossly intact. Gaze aligned appropriately. Extraocular Movements: Extraocular movements intact. Conjunctiva/sclera: Conjunctivae normal. Pupils: Pupils are equal, round, and reactive to light. Neck: Trachea: Trachea and phonation normal. Cardiovascular: Rate and Rhythm: Normal rate and regular rhythm. Pulses: Normal pulses. Heart sounds: Normal heart sounds. Pulmonary: Effort: Pulmonary effort is normal. Breath sounds: Normal breath sounds. Abdominal: General: Abdomen is flat. Bowel sounds are normal. Palpations: Abdomen is soft. Musculoskeletal: General: Normal range of motion. Cervical back: Normal range of motion and neck supple. Skin: General: Skin is warm and dry. Neurological: General: No focal deficit present. Mental Status: She is alert and oriented to person, place, and time. Mental status is at baseline. Cranial Nerves: Cranial nerves 2-12 are intact. Sensory: Sensory deficit present. Motor: Weakness and atrophy present. Gait: Gait abnormal. Deep Tendon Reflexes: Reflex Scores: Tricep reflexes are 1+ on the right side and 1+ on the left side. Bicep reflexes are 1+ on the right (more content not included)... Normal [facility] No mammographic evid ence of malignancy. ASSESSMENT: Category 2 Benign RECOMMENDATION: Routine screening mammogram in 1 year. Bilateral CANCER RISK ASSESSMENT: No lifetime breast cancer risk score was calculated due to the patient having had a previous breast cancer diagnosis per Tyrer-Cuzick version 8 risk model guidelines. Is the patient at elevated risk based on the HBOC criteria? Yes (Hereditary Breast and Ovarian Cancer) - If Yes, consider genetic counseling and testing with high risk follow up Is the patient at elevated risk based on the Beach Syndrome criteria? No - If Yes, consider genetic counseling and testing with high risk follow up. Report Dictated on Electronically Signed By: Elizabeth Live MD Electronically Signed Date/Time: 10/14/2024 3:56 PM [facility] RADIOLOG[facility] Patient Name: RAGINI MENSAH : 1970 Exam Date/Time: 10/14/2024 14:12 Procedure: BI MAMMOGRAM SCREENING TOMOSYNTHESIS BILATERAL Ordering Provider: LOWE DANIELLE Reason For Exam: This exam was performed at [facility] [address] [id number] PATIENT CANCER HISTORY: Self Breast Cancer age 44 FAMILY CANCER HISTORY: Maternal Grandmother Uterine Cancer age 32 Maternal Great Grandmother Breast Cancer age 78 Maternal Cousin Breast Cancer age 35 Maternal Cousin Breast Cancer age 68 Maternal Aunt Breast Cancer age 83 Maternal Cousin Breast Cancer age 55 Image views: 2D Bilateral CC and MLO views were acquired. 3D Bilateral CC and MLO views were acquired. Images were reviewed with CAD. Markings on images: BB's = Nipples; skin lesions Open zuni = Palpable Line = Scar COMPARISON: 02/14/2020, 09/20/2023 TISSUE DENSITY: BIRADS B - There are scattered areas of fibroglandular density. FINDINGS: Postsurgical changes are present on the right. No suspicious masses, architectural distortions or suspiciously clustered microcalcifications are identified. There is no evidence of skin thickening or nipple retraction. A port overlies the left axilla. There are no significant changes when compared with prior studies. [facility] Elizabeth Live MD - 10/14/2024 Patient Name: RAGINI MENSAH : 1970 Exam Date/Time: 10/14/2024 14:12 Procedure: BI MAMMOGRAM SCREENING TOMOSYNTHESIS BILATERAL Ordering Provider: LOWE DANIELLE Reason For Exam: This exam was performed at [facility] [address] [facility] [address] [id number] PATIENT CANCER HISTORY: Self Breast Cancer age 44 FAMILY CANCER HISTORY: Maternal Grandmother Uterine Cancer age 32 Maternal Great Grandmother Breast Cancer age 78 Maternal Cousin Breast Cancer age 35 Maternal Cousin Breast Cancer age 68 Maternal Aunt Breast Cancer age 83 Maternal Cousin Breast Cancer age 55 Image views: 2D Bilateral CC and MLO views were acquired. 3D Bilateral CC and MLO views were acquired. Images were reviewed with CAD. Markings on images: BB's = Nipples; skin lesions Open zuni = Palpable Line = Scar COMPARISON: 02/14/2020, 09/20/2023 TISSUE DENSITY: BIRADS B - There are scattered areas of fibroglandular density. FINDINGS: Postsurgical changes are present on the right. No suspicious masses, architectural distortions or suspiciously clustered microcalcifications are identified. There is no evidence of skin thickening or nipple retraction. A port overlies the left axilla. There are no significant changes when compared with prior studies. IMPRESSION: No mammographic evidence of malignancy. ASSESSMENT: Category 2 Benign RECOMMENDATION: Routine screening mammogram in 1 year. Bilateral CANCER RISK ASSESSMENT: No lifetime breast cancer risk score was calculated due to the patient having had a previous breast cancer diagnosis per Tyrer-Cuzick version 8 risk model guidelines. Is the patient at elevated risk based on the HBOC criteria? Yes (Hereditary Breast and Ovarian Cancer) - If Yes, consider genetic counseling and testing with high risk follow up Is the patient at elevated risk based on the Beach Syndrome criteria? No - If Yes, consider genetic counseling and testing with high risk follow up. Report Dictated on Electronically Signed By: Elizabeth Live MD Electronically Signed Date/Time: 10/14/2024 3:56 PM EDT [facility] Radiology Study observation (narrative) [facility] DBT Breast - bilateral scree ningOrdered By: Elizabeth Live on 10-14-2024 [facility] Actual Experience Work Phone: IG CONCENTRATION, BLOOD (IMM UNOFIXATION ELECTROPHORESIS)on 10-14-2024 IGA, BLOOD 107 mg/dL Normal 65-450 [facility] Comment on above: Order Comment: THIS IS A CARVE-OUT LAB: SPECIMEN MUST BE SENT TO [facility] FOR PROCESSING Performed By: #### L [id number] ####Professor Of Radiology: MICHELL LUNA ([id number])[facility] ([address] IGG, BLOOD 729 mg/dL Normal 540-1722 [facility] Comment on above: Order Comment: THIS IS A CARVE-OUT LAB: SPECIMEN MUST BE SENT TO [facility] FOR PROCESSING Performed By: #### L [id number] ####Professor Of Radiology: MICHELL LUNA ([id number])[facility])[address] [place] [address] IGM, BLOOD 65 mg/dL Normal 25-265 [facility] Comment on above: Order Comment: THIS IS A CARVE-OUT LAB: SPECIMEN MUST BE SENT TO [facility] FOR PROCESSING Performed By: #### L [id number] ####Professor Of Radiology: MICHELL LUNA ([id number])[facility])[address] [place] [address] IMMUNOFIXATION ELECTROPHORES Yocasta 10-14-2024 IMMUNOFIXATION ELECTROPHORESIS Normal Pattern Normal [facility] Comment on above: Order Comment: THIS IS A CARVE-OUT LAB: SPECIMEN MUST BE SENT TO [facility] FOR PROCESSING Performed By: #### L [id number] ####Professor Of Radiology: MICHELL LUNA ([id number])[address] RELEASED BY Michell Luna M.D. [facility] Comment on above: Order Comment: THIS IS A CARVE-OUT LAB: SPECIMEN MUST BE SENT TO [facility] FOR PROCESSING Result Comment: This is an appended report. These results have been appended to a previously preliminary verified report. Performed By: #### L [id number] ####Professor Of Radiology: MICHELL LUNA ([id number])[address] REVIEWED BY Aj Bennett, Ph.D. [facility] Comment on above: Order Comment: THIS IS A CARVE-OUT LAB: SPECIMEN MUST BE SENT TO [facility] FOR PROCESSING Performed By: #### L [id number] ####Professor Of Radiology: MICHELL LUNA ([id number])[facility])[address] [place] [address] IgG, IgA, IgMon 10-14-2024 IgA [Mass/Vol] 107 mg/dL 65 - 450 mg/dL [facility] IgG [Mass/Vol] 729 mg/dL 540 - 1722 mg/dL [facility] IgM [Mass/Vol] 65 mg/dL 25 - 265 mg/dL [facility] Interpretation and review of laboratory results Normal [facility] 36on 10-08-2024 36 Working on auth Normal [facility] Office Visiton 10-08-2024 Follow-up visit [id number] Ragini Mensah 1970 F Date Provider Department Center 10/08/2024 233-KATYA FIGUEROA [facility] DE None Family History Problem Relation Age of Onset Thyroid disease Mother Skin cancer Sister 47 Uterine cancer Maternal Grandmother 32 Lung cancer Maternal Grandfather 75 Skin cancer Mother's Sister 58 Breast cancer Mother's Sister 83 Breast cancer Maternal Cousin 30 - 39 Breast cancer Maternal Cousin 68 Breast cancer Maternal Cousin 50 - 59 Breast cancer Maternal Great-Grandmother 78 Family Status - Relation Status Age at Mother Father Sister Alive Maternal Grandmother Maternal Grandfather Paternal Grandmother Paternal Grandfather Mother's Sister Alive Maternal Cousin Alive Maternal Cousin Alive Maternal Cousin Alive Maternal Great-Grandmother Level of Service:17995 MO OFFICE/OUTPATIENT ESTABLISHED LOW MDM 20 MIN Reason for Visit and Comments: Skin Lesion [[id number]] - (PKN) Normal [facility] Progress Noteon 10-08-2024 Progress Note DATE OF SERVICE: 09/22 PATIENT NAME: Ragini Mensah : 1970 AGE: 54 y.o. CLINIC NUMBER: [id number] Visit type: Established patient Chief Complaint Patient presents with Skin Lesion (PKN) Subjective HISTORY OF PRESENT ILLNESS: Ragini Mensah is a 54 y.o. who presents to the office for a check up. Patient has never had an FSE before. Last seen 03/06/2024 with Radha Morgan PA-C. Patient denies any new, changing, itching or bleeding lesions. Patient has no h/o of ATN. Patient has no h/o of AKs. Patient has no personal h/o skin cancer. Patient has no family h/o melanoma. Patient has family hx of skin cancer, unknown type: sister and maternal aunt. History of pacemaker/ defibrillator? No History of HIV/ Hep C? No Allergies to Lidocaine, Epinephrine, Latex or Adhesive? Sensitive to Lidocaine and adhesives. Social History: Born/raised in [place]. Excessive sun exposure: Yes Used tanning beds: No Patient does wear SPF. Patient does not use additional sun protection measures. Review of Systems Dermatology: as per HPI, otherwise negative Vitals: 10/08/24 1301 BP: (!) 143/77 Pulse: 86 PHYSICAL EXAM: GENERAL APPEARANCE:?alert and oriented x3, well developed and well nourished. PSYCH: appropriate mood and affect DERMATOLOGY: Skin Exam 1. MULTIPLE BENIGN MELANOCYTIC NEVI OF BOTH UPPER EXTREMITIES, BOTH LOWER EXTREMITIES, AND TRUNK Generalized Scattered uniform diego/brown nevoid macules and papules; showing normal patterns with dermoscopy Reassured that this is a benign lesion and does not require any treatment. Educated that if the lesion changes color, becomes larger, bleeds, becomes bothersome or painful then it should be reevaluated. Patient expresses understanding and is agreeable to plan. 2. SOLAR LENTIGO Generalized Light brown well-circumscribed macule(s) Educated and reassured, benign finding secondary to sun exposure. Patient educated on the proper use of sunscreen, SPF, and how often to reapply. Recommend use of OTC mineral sun block, like Neutrogena or La-Obi Posay. Patient advised to look for zinc or titanium as the active ingredient(s). 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 Patient advised to perform self-skin checks and call for follow up appointment if any new or concerning lesions detected. Sunscreen Use & Sun Safety It is recommended a water-resistant, broad-spectrum sunscreen with SPF of at least 15 to 30. Apply sunscreen to all exposed skin 30 minutes before sun exposure, and then every 2 hours. Apply sooner if sweating or coming out of pool/water. Using the proper amount of sunscreen in important. An adult should use about 1-1.5 oz of sunscreen to the entire body, about 2-3 tablespoons per application. Use a lip balm with SPF 30 or higher to protect the lips from sun damage. Limit time in the sun, especially between 10 AM and 2 PM when the sun?s rays are the strongest. Clothing labeled with a UPF (ultra-ham protection factor) rating indicates that it?s protective against UV rays. Also, wear wide-brimmed hats, and sunglasses for sun protection. 3. SEBORRHEIC KERATOSIS (2) Generalized, Left Breast Diego-brown waxy papule(s) and plaque(s) Reassured that this is a benign lesion and does not require any treatment. Educated that if the lesion changes color, becomes larger, bleeds, becomes bothersome or painful then it should be reevaluated. Patient expresses understanding and is agreeable to plan. 4. SCHMIDT ANGIOMA Generalized Bright red vascular papule(s) Reassured and educated, benign finding. 5. PILAR CYST Mid Parietal Scalp firm, non-tender, mobile subcutaneous nodule with out central comedone Reviewed no treatment is needed unless cyst becomes inflamed, infected, or bothersome. Treatment options include injections, I&D, or complete surgical removal. Patient declines treatment at this time. 6. LIPOMA OF LEFT UPPER EXTREMITY Left Posterior Axilla Soft, non-tender, mobile subcutaneous nodule of posterior left axilla Reviewed no treatment is needed unless lipoma becomes inflamed, infected, or bothersome. Treatment options include complete surgical removal. Patient declines treatment at this time. 7. KERATOSIS PILARIS (2) Left Forearm - Posterior, Right Forearm - Posterior Flesh/pink colored folliculocentric papules Keratosis pilaris, or KP, is an extremely common and benign skin problem. It's the results of abnormal shedding of the skin and is commonly referred to a gooseflesh. It occurs on the upper arms, thighs, buttocks and sometimes on the face. Topical medications can be used once to twice per day to diminish the bumps and rough texture. Continue: -lac hydrin: apply to affected areas once to twice daily (patient encouraged to use regularly) Follow up in about 1 year (around 10/08/2025) for FSE. Katya Figueroa PA-C 10/08/24 1:14 PM REFERRING MD: No ref (more content not included)... [facility] 36on 10-07-2024 36 Reason for call: tricia Laureano has been r/s for Nerve Conduction Test w/ EMG on 10/11/24 at [facility]. If you have any questions please give us a call. Thank you, Central Scheduling Contact Phone Number: [phone] [facility] 36 Your patient has bee n scheduled for their MRI on 10/30/2024 at 6:30. If testing requires an insurance authorization, the authorization must be in place 48 hours prior to the scheduled test or testing will be cancelled. Thank you, Central Scheduling Normal [facility] Office Visiton 10-07-2024 Follow-up visit [id number] Ragini Mensah 1970 F Date Provider Department Center 10/07/2024 [id number] [facility] None Family History Problem Relation Age of Onset Thyroid disease Mother Skin cancer Sister 47 Uterine cancer Maternal Grandmother 32 Lung cancer Maternal Grandfather 75 Skin cancer Mother's Sister 58 Breast cancer Mother's Sister 83 Breast cancer Maternal Cousin 30 - 39 Breast cancer Maternal Cousin 68 Breast cancer Maternal Cousin 50 - 59 Breast cancer Maternal Great-Grandmother 78 Family Status - Relation Status Age at Mother Father Sister Alive Maternal Grandmother Maternal Grandfather Paternal Grandmother Paternal Grandfather Mother's Sister Alive Maternal Cousin Alive Maternal Cousin Alive Maternal Cousin Alive Maternal Great-Grandmother Level of Service:84688 MO OFFICE/OUTPATIENT NEW MODERATE MDM 45 MINUTES Reason for Visit and Comments: Dizziness [[id number]] - On and off for several months Normal [facility] Progress Noteon 10-07-2024 Progress Note Department of Neurol ogical Sciences Initial Consult Note CHIEF COMPLAINT: Chief Complaint Patient presents with Dizziness On and off for several months Reason for Consult: Dizziness HISTORY OF PRESENT ILLNESS: The patient is a 54 y.o. female who presents with history of peripheral neuropathy secondary to diabetes and progressive dizziness and ataxia. Today patient presented to the neurology clinic for evaluation and treatment of her frequent episodes of dizziness and loss of balance. Patient reports that her symptoms is start approximately a year ago and has been getting progressively worse over the last few months. Lately patient had noticed that she had developed a wide-based gait and also that she has significant difficulty when she tried to turn around. She denied any focal weakness. Patient complained of numbness in both upper and lower extremities following the typical glove stocking distribution. Patient had diabetes mellitus/Crohn's disease. Patient reports that her glucose has been relatively well-controlled. Her hemoglobin A1c is 6.2. Patient denied any other neurological deficits. Past Medical History: Medical History[1] Past Surgical History: Surgical History[2] Medications: Current Medications[3] Allergies: Bee pollen, Bee venom, Dust mite extract, Honey bee venom, Ibuprofen, Molds & smuts, Propoxyphene, Nsaids, Acetaminophen, Asa [aspirin], Asacol [mesalamine], Formoterol, Humira [adalimumab], Iothalamate, Levaquin [levofloxacin], Levofloxacin in d5w, Macrobid [nitrofurantoin], Methylprednisolone sodium succ, Nitrofurantoin macrocrystal, Reglan [metoclopramide], Solu-medrol [methylprednisolone], Sulfadiazine, and Zithromax [azithromycin] Social History: Social History Socioeconomic History Marital status: Spouse name: Not on file Number of children: Not on file Years of education: Not on file Highest education level: Not on file Occupational History Not on file Tobacco Use Smoking status: Former Current packs/day: 0.00 Average packs/day: 0.5 packs/day for 25.0 years (12.5 ttl pk-yrs) Types: Cigarettes Start date: 01/25/1993 Quit date: 01/25/2018 Years since quittin.7 Passive exposure: Past Smokeless tobacco: Never Vaping Use Vaping status: Never Used Substance and Sexual Activity Alcohol use: No Alcohol/week: 0.0 standard drinks of alcohol Drug use: No Sexual activity: Not on file Other Topics Concern Not on file Social History Narrative Not on file Social Drivers of Health Financial Resource Strain: Not on file Food Insecurity: Not on file Transportation Needs: Not on file Physical Activity: Not on file Stress: Not on file Social Connections: Not on file Intimate Partner Violence: Not on file Housing Stability: Not on file Family History: Family History[4] REVIEW OF SYSTEMS: Review of Systems Constitutional: Positive for fatigue. HENT: Negative. Eyes: Negative. Respiratory: Negative. Cardiovascular: Positive for palpitations. Gastrointestinal: Positive for nausea. Endocrine: Negative. Genitourinary: Negative. Musculoskeletal: Positive for arthralgias, back pain and neck stiffness. Skin: Negative. Allergic/Immunologic: Negative. Neurological: Positive for dizziness, weakness and numbness. Hematological: Negative. Psychiatric/Behavioral: Positive for sleep disturbance. The patient is nervous/anxious. PHYSICAL EXAM: Vitals: BP (!) 154/84 Pulse 89 Wt 180 lb 8 oz (81.9 kg) BMI 29.13 kg/m? Physical Exam Constitutional: Appearance: Normal appearance. HENT: Head: Normocephalic and atraumatic. Nose: Nose normal. Mouth/Throat: Mouth: Mucous membranes are moist. Pharynx: Oropharynx is clear. Eyes: General: Vision grossly intact. Gaze aligned appropriately. Extraocular Movements: Extraocular movements intact. Conjunctiva/sclera: Conjunctivae normal. Pupils: Pupils are equal, round, and reactive to light. Neck: Trachea: Trachea and phonation normal. Cardiovascular: Rate and Rhythm: Normal rate and regular rhythm. Pulses: Normal pulses. Heart sounds: Normal heart sounds. Pulmonary: Effort: Pulmonary effort is normal. Breath sounds: Normal breath sounds. Abdominal: General: Abdomen is flat. Bowel sounds are normal. Palpations: Abdomen is soft. Musculoskeletal: General: Normal range of motion. Cervical back: Normal range of motion and neck supple. Skin: General: Skin is warm and dry. Neurological: General: No focal deficit present. Mental Status: She is alert and oriented to person, place, and time. Mental status is at baseline. Cranial Nerves: Cranial nerves 2-12 are intact. Sensory: Sensory deficit present. Motor: Weakness and atrophy present. Gait: Gait abnormal. Deep Tendon Reflexes: Reflex Scores: Tricep reflexes are 1+ on the right side and 1+ on the left side. Bicep reflexes are 1+ on the right side and 1+ on the l (more content not included)... Normal [facility] C-REACTIVE PROTEINon 025 CRP 0.13 mg/dl Normal 0.00 - 0.90 [facility] Comment on above: Performed By: #### 2 [id number] #### [facility],[address] [place] [address]152 CBC + DIFFon 10-04-2024 Baso # 0.01 x10EE3/UL Normal 0.00 - 0.10 [facility] Comment on above: Performed By: #### 2 96828 #### [facility],[address] [place] [address] 29156 Basophils/100 WBC (Bld) 0.2 % Normal 0.0 - 2.0 [facility] Comment on above: Performed By: #### 2 03519 #### [facility],[address] [place] [address] 06411 CBC + DIFF Normal [facility] Comment on above: Result Comment: CBC- COMPLETE BLOOD COUNT Performed By: #### 2 34203 #### [facility],[address] [place] [address]21 EO # 0.21 x10EE3/UL Normal 0.00 - 0.50 [facility] Comment on above: Performed By: #### 2 88117 #### [facility],[address] [place] [address] 86379 Eosinophils/100 WBC (Bld) 3.8 % Normal 0.0 - 7.0 [facility] Comment on above: Performed By: #### 2 27477 #### [facility],[address] [place] [address] Erythrocyte distribution width (RBC) [Ratio] 14.2 % Normal 12.0 - 15.6 [facility] Comment on above: Performed By: #### 2 29301 #### [facility],[address] [place] [address] 64232 Hematocrit (Bld) [Volume fraction] 38.5 % Normal 34.0 - 46.0 [facility] Comment on above: Performed By: #### 2 84559 #### [facility],[address] [place] [address] 88876 Hemoglobin (Bld) [Mass/Vol] 13.4 g/dL Normal 12.0 - 16.0 [facility] Comment on above: Performed By: #### 2 13597 #### [facility],[address] [place] [address] 53462 Lymph # 1.45 x10EE3/UL Normal 0.80 - 2.80 [facility] Comment on above: Performed By: #### 2 58873 #### [facility],[address] [place] [address] 76276 Lymphocytes/100 WBC (Bld) 26.1 % Normal 20.0 - 45.0 [facility] Comment on above: Performed By: #### 2 71895 #### [facility],[address] [place] [address] MANUAL DIFF N/A Normal [facility] Comment on above: Performed By: #### 2 34659 #### [facility],[address] [place] [address] MCH (RBC) [Entitic mass] 30 pg Normal 27 - 33 [facility] Comment on above: Performed By: #### 2 75883 #### [facility],[address] [place] [address] MCHC 35 X10 3 Normal 32 - 36 [facility] Comment on above: Performed By: #### 2 32948 #### [facility],[address] [place] [address] MCV (RBC) [Entitic vol] 88 fL Normal 80 - 99 [facility] Comment on above: Performed By: #### 2 54013 #### [facility],[address] [place] [address] [place] # 0.34 x10EE3/UL Normal 0.20 - 1.00 [facility] Comment on above: Performed By: #### 2 57901 #### [facility],[address] [place] [address] MONOS % 6.1 % Normal 0.0 - 10.0 [facility] Comment on above: Performed By: #### 2 26677 #### [facility],[address] [place], [place] [id number] Morphology Jose (Bld) [Interp] N/A Normal [facility] Comment on above: Performed By: #### 2 36854 #### [facility],[address] [place] [address] Neut # 3.54 x10EE3/UL Normal 1.50 - 7.10 [facility] Comment on above: Performed By: #### 2 96779 #### [facility],[address] [place] [address] 59477 Neutrophils/100 WBC (Bld) 63.9 % Normal 46.0 - 76.0 [facility] Comment on above: Performed By: #### 2 06925 #### [facility],[address] [place] [address] 14298 PLATELET 224 x10EE3/UL Normal 150 - 450 [facility] Comment on above: Performed By: #### 2 79774 #### [facility],[address] [place] [address] 13112 Platelet mean volume (Bld) [Entitic vol] 8.9 fL Normal 6.6 - 10.5 [facility] Comment on above: Result Comment: AUTO MATED DIFFERENTIAL Performed By: #### 2 36922 #### [facility],[address] [place] [address] 49829 RBC 4.40 x 10EE6/UL Normal 4.10 - 5.30 [facility] Comment on above: Performed By: #### 2 90653 #### [facility],[address] [place] [address] 04281 WBC 5.6 x 10EE3/UL Normal 4.5 - 10.8 [facility] Comment on above: Performed By: #### 2 01791 #### [facility],[address] [place] [address] 75744 CMP with eGFRon 10-04-2024 AGE 54 years Normal [facility] Comment on above: Performed By: #### 2 72147 #### [facility],[address] [place] [address] 97102 Albumin [Mass/Vol] 3.8 g/dL Normal 3.4 - 5.0 [facility] Comment on above: Performed By: #### 2 93448 #### [facility],[address] [place] [address] 39685 Albumin/Globulin [Mass ratio] 1.1 {ratio} Normal 0.9 - 1.6 [facility] Comment on above: Performed By: #### 2 54369 #### [facility],[address] [place] [address] 22114 ALK PHOS 109 U/L Normal 46 - 116 [facility] Comment on above: Performed By: #### 2 25214 #### [facility],[address] [place] [address] 73024 ALT [Catalytic activity/Vol] 40 U/L Normal 16 - 63 [facility] Comment on above: Performed By: #### 2 33130 #### [facility],[address] [place] [address] 35776 Anion gap [Moles/Vol] 14 mmol/L Normal 10 - 20 [facility] Comment on above: Performed By: #### 2 90230 #### [facility],[address] [place] [address] 85584 AST [Catalytic activity/Vol] 23 U/L Normal 13 - 39 [facility] Comment on above: Performed By: #### 2 78957 #### [facility],[address] [place] [address] 74005 B/C RATIO 21 ratio Normal 0 - 30 [facility] Comment on above: Performed By: #### 2 54291 #### [facility],[address] [place] [address] 66512 Bilirubin [Mass/Vol] 0.3 mg/dL Normal 0.2 - 1.0 [facility] Comment on above: Performed By: #### 2 12166 #### [facility],[address] [place] [address] 92323 Calcium [Mass/Vol] 9.0 mg/dL Normal 8.5 - 10.1 [facility] Comment on above: Performed By: #### 2 53725 #### [facility],[address] [place] [address] 55350 Chloride [Moles/Vol] 102 mmol/L Normal 98 - 107 [facility] Comment on above: Performed By: #### 2 36696 #### [facility],[address] [place] [address] 54440 CMP with eGFR Normal [facility] Comment on above: Result Comment: COMP REHENSIVE METABOLIC PANEL Performed By: #### 2 15874 #### [facility],[address] [place] [address] 26846 CO2 [Moles/Vol] 25.8 mmol/L Normal 21.0 - 32.0 [facility] Comment on above: Performed By: #### 2 27144 #### [facility],[address] [place] [address] Creatinine [Mass/Vol] 0.57 mg/dL Normal 0.55 - 1.02 [facility] Comment on above: Performed By: #### 2 67885 #### [facility],[address] [place], [place] [id number] GFR/1.73 sq M.predicted among non-blacks MDRD (S/P/Bld) [Vol rate/Area] mL/min/{1.73_m2} Normal 60 - 999 [facility] Comment on above: Performed By: #### 2 63731 #### [facility],[address] [place], [place] [phone] Result Comment: ACCO RDING TO THE NATIONAL KIDNEY DISEASE EDUCATION PROGRAM(NKDE), A NORMAL eGFR IS A VALUE GREATER THAN OR EQUAL TO 60 ML/MIN/1.73 SQ METERS. CHRONIC KIDNEY DISEASE: <60mL/MIN/1.73 SQ METERS KIDNEY FAILURE: <15mL/MIN/1.73 SQ METERS THIS TEST SHOULD ONLY BE USED FOR PATIENTS 18 YEARS OF AGE AND OLDER. Globulin (S) [Mass/Vol] 3.4 g/dL Normal 1.5 - 3.8 [facility] Comment on above: Performed By: #### 2 42081 #### [facility],[address] [place], [place] [phone] Glucose [Mass/Vol] 204 mg/dL High 74 - 106 [facility] Comment on above: Performed By: #### 2 43075 #### [facility],[address] [place] [address] 21385 Potassium [Moles/Vol] 4.1 mmol/L Normal 3.5 - 5.1 [facility] Comment on above: Performed By: #### 2 55881 #### [facility],[address] [place] [address] 46408 Protein [Mass/Vol] 7.2 g/dL Normal 6.4 - 8.2 [facility] Comment on above: Performed By: #### 2 04597 #### [facility],[address] [place] [address] 66767 Sodium [Moles/Vol] 138 mmol/L Normal 136 - 145 [facility] Comment on above: Performed By: #### 2 88525 #### [facility],[address] [place] [address] 39618 Urea nitrogen [Mass/Vol] 12 mg/dL Normal 7 - 18 [facility] Comment on above: Performed By: #### 2 26890 #### [facility],[address] [place] [address] HEMOGLOBIN A1C (POM)on 10-04 Glucose [Mass/Vol] 205.9 mg/dL High 0.0 - 0.0 [facility] Comment on above: Result Comment: BLDo HEMOGLOBIN A1C REFERENCE RANGESBLDo Suggested Diagnosis HbA1c(%) HbA1C (mmol/mol Diabetic >/=6.5 >/=48 Prediabetes 5.7 - 6.4 39 - 47 Normal <5.7 <39 Performed By: #### 2 22464 #### [facility],[address] [place] [address] 65640 HbA1c (Bld) [Mass fraction] 8.8 % High 0.0 - 6.5 [facility] Comment on above: Performed By: #### 2 91296 #### [facility],[address] [place], [place] [phone] LIPID PROFILEon 10-04-2024 Cholesterol [Mass/Vol] 164 mg/dL Normal 0 - 240 [facility] Comment on above: Performed By: #### 2 78606 #### [facility],[address] [place] [address] 81303 Cholesterol in HDL [Mass/Vol] 42 mg/dL Normal 40 - 60 [facility] Comment on above: Performed By: #### 2 35132 #### [facility],[address] [place] [address] 79861 Cholesterol in LDL [Mass/Vol] 44 mg/dL Normal 0 - 129 [facility] Comment on above: Performed By: #### 2 88487 #### [facility],[address] [place] [address] 18094 Cholesterol.total/Ch olesterol in HDL [Mass ratio] 3.9 {ratio} Normal 0.0 - 5.0 [facility] Comment on above: Performed By: #### 2 86892 #### [facility],[address] [place] [address] 60620 Lipid 1996 panel Normal [facility] Comment on above: Result Comment: LIPI D PROFILE Performed By: #### 2 68284 #### [facility],[address] [place] [address] 40622 Triglyceride [Mass/Vol] 390 mg/dL High 0 - 150 [facility] Comment on above: Performed By: #### 2 71541 #### [facility],[address] [place] [address] 81777 MAGNESIUMon 10-04-2024 Magnesium [Mass/Vol] 1.9 mg/dL Normal 1.8 - 2.4 [facility] Comment on above: Performed By: #### 2 49282 #### [facility],[address] [place] [address] 80168 SEDRATEon 10-04-2024 SEDRATE 8 mm/hr Normal 0 - 30 [facility] Comment on above: Performed By: #### 2 36525 #### [facility],[address] [place] [address] T4-FREE (FREE THYROXINE)on 0 10-04-2024 Free T4 [Mass/Vol] 0.76 ng/dL Normal 0.76 - 1.46 [facility] Comment on above: Result Comment: P otential of falsely elevated results when biotin concentrations are > 10 ng/mL. Performed By: #### 2 32103 #### [facility],[address] [place] [address] TSHon 10-04-2024 TSH Qn 0.81 m[IU]/L Normal 0.35 - 3.74 [facility] Comment on above: Performed By: #### 2 41540 #### [facility],[address] [place] [address] URINE MICROALBUMIN, RANDOMon 10-04-2024 MICROALBUMIN UR 0.3 mg/dL Normal 0.1 - 11.6 [facility] Comment on above: Performed By: #### 2 14506 #### [facility],[address] [place] [address] URINE CULTURE [CCL]on 2024 Bacteria identified Cx Nom (U) URCUL See Results Below See Below CULTURE, URINE ESCHERICHIA COLI >=100,000 CFU/ml Escherichia coli ORGANISM: ESCHERICHIA COLI ANTIBIOTIC ZION DILUTN ZION INTERP Ampicillin <=2 Susceptible Cefazolin <=4 Susceptible For uncomplicated urinary tract infections, cefazolin results can be used to pre Ceftriaxone <=1 Susceptible Cefepime <=1 Susceptible Ertapenem <=0.5 Susceptible Meropenem <=0.25 Susceptible Ampicillin/Sulbact <=2 Susceptible Piperacillin/Tazobac <=4 Susceptible Gentamicin <=1 Susceptible Tobramycin <=1 Susceptible Trimeth sulfameth <=20 Susceptible Ciprofloxacin <=0.25 Susceptible Nitrofurantoin <=16 Susceptible This test was developed and its performance characteristics determined by the [facility] [place] [facility]). It has not been cleared or approved by the FDA. [facility] is regulated under CLIA as qualified to perform high-complexity testing. This test is used for clinical purposes. It should not be regarded as investigational or for research. SOURCE: Urine (Nonspecific) [facility] [address] [place] [address] Rolando Zamarripa III, M.D. [id number] SEND TO IC YES Normal [facility] Comment on above: Performed By: #### 2 79010 #### [facility],[address] [place] [address] 31876 Bacteria Ur Culton 5 Bacteria identified Cx Nom (U) ORGANISM ID: 1 >=100,000 CFU/ml Escherichia coli ORGANISM ID: 1 (ESCHERICHIA COLI) --------- ANTIBIOTIC INTERPRETATION ZION STATUS REFERENCE RANGE --------- Ampicillin S <=2 F Susceptible <=8 , Intermediate >8 , Resistant >16 Cefazolin S <=4 F Susceptible 0-16 , Intermediate <0 or >16 , Resistant >16 For uncomplicated urinary tract infections, cefazolin results can be used to predict susceptibility or resistance to cephalexin. Ceftriaxone S <=1 F Susceptible <=1 , Intermediate >1 , Resistant >=4 Cefepime S <=1 F Susceptible <=2 , Susceptible-Dose Dependent >2 , Resistant >=16 Ertapenem S <=0.5 F Susceptible <=0.5 , Intermediate >.5 , Resistant >1 Meropenem S <=0.25 F Susceptible <=1 , Intermediate >1 , Resistant >2 Ampicillin/Sulbact S <=2 F Susceptible <=8 , Intermediate >8 , Resistant >16 Piperacillin/Tazobac S <=4 F Susceptible <16 , Susceptible-Dose Dependent >=16 , Resistant >=32 Gentamicin S <=1 F Susceptible <=2 , Intermediate >2 , Resistant >=8 Tobramycin S <=1 F Susceptible <4 , Intermediate >=4 , Resistant >=8 Trimeth sulfameth S <=20 F Susceptible <=40 , Resistant >40 Ciprofloxacin S <=0.25 F Susceptible <0.5 , Intermediate >=.5 , Resistant >=1 Nitrofurantoin S <=16 F Susceptible <=32 , Intermediate >32 , Resistant >64 Abnormal [facility] Comment on above: Performed By: #### 6 30-4 #### [facility] CLIA [id number] [address] [place] [address] URINALYSISon 07-01-2024 Amorphous NONE Normal [facility] Comment on above: Performed By: #### 2 32896 #### [facility],[address] [place] [address] Bacteria 3+ Normal [facility] Comment on above: Performed By: #### 2 63634 #### [facility],[address] [place] [address] Bilirubin Ql (U) Negative Normal NORMAL: NEGATIVE [facility] Comment on above: Performed By: #### 2 79931 #### [facility],[address] [place] [address] Casts NONE Normal [facility] Comment on above: Performed By: #### 2 41216 #### [facility],[address] [place] [address] Clarity (U) sl.cloudy Normal NORMAL: CLEAR [facility] Comment on above: Performed By: #### 2 27043 #### [facility],[address] [place] [address] Color (U) yellow Normal NORMAL: YELLOW [facility] Comment on above: Performed By: #### 2 32059 #### [facility],[address] [place] [address] 45850 Crystals LM Nom (Urine sed) NONE Normal [facility] Comment on above: Performed By: #### 2 59590 #### [facility],[address] [place] [address] 12240 Epi Cells NONE Normal [facility] Comment on above: Performed By: #### 2 43768 #### [facility],[address] [place] [address] 32253 Glucose Ql (U) NORM Normal NORMAL: NORMAL [facility] Comment on above: Performed By: #### 2 64521 #### [facility],[address] [place] [address] 67146 Hemoglobin Ql (U) 25 Abnormal NORMAL: NEGATIVE [facility] Comment on above: Performed By: #### 2 60647 #### [facility],[address] [place] [address] 92130 Ketone Negative Normal NORMAL: NEGATIVE [facility] Comment on above: Performed By: #### 2 93886 #### [facility],[address] [place] [address] 47616 Leukocytes 500 Abnormal NORMAL: NEGATIVE [facility] Comment on above: Performed By: #### 2 81759 #### [facility],[address] [place] [address] 86647 Mucous NONE Normal [facility] Comment on above: Performed By: #### 2 14908 #### [facility],[address] [place] [address] 30293 Nitrite Ql (U) Negative Normal NORMAL: NEGATIVE [facility] Comment on above: Performed By: #### 2 93737 #### [facility],[address] [place] [address] 08519 pH (U) 5 [pH] Normal NORMAL: 5.0-8.0 [facility] Comment on above: Performed By: #### 2 60755 #### [facility],[address] [place] [address] Protein Ql (U) 30 Abnormal NORMAL: NEGATIVE [facility] Comment on above: Performed By: #### 2 74701 #### [facility],[address] [place] [address] Rbc NONE Normal 0-3/hpf [facility] Comment on above: Performed By: #### 2 35173 #### [facility],[address] [place] [address] Sp [place] 1.010 Normal NORMAL: 1.010-1.030 [facility] Comment on above: Performed By: #### 2 85271 #### [facility],[address] [place] [address] Specimen Type R Normal [facility] Comment on above: Performed By: #### 2 66788 #### [facility],[address] [place] [address] Urinalysis dipstick W Reflex Microscopic panel (U) SEE BELOW Normal [facility] Comment on above: Result Comment: MICR OSCOPIC Performed By: #### 2 09553 #### [facility],[address] [place] [address] Urobilinog NORM Normal NORMAL: NORMAL [facility] Comment on above: Performed By: #### 2 41948 #### [facility],[address] [place] [address] Wbc 26-50 Normal 0-5/hpf [facility] Comment on above: Performed By: #### 2 25564 #### [facility],[address] [place] [address] Yeast NONE Normal [facility] Comment on above: Performed By: #### 2 50871 #### [facility],[address] [place] [address] CBC with Diffon 03-11-2024 BA# 0.0 x(10)3/cumm Normal 0.0-0.1 [facility] Comment on above: Performed By: #### C BCDIFF #### [facility] [address] [place] [address] 72854 Basophils/100 WBC (Bld) 0.2 % Normal 0.0-1.0 [facility] Comment on above: Performed By: #### C BCDIFF #### [facility] [address] [place] [address] 36911 EO# 0.1 x(10)3/cumm Normal 0.0-0.4 [facility] Comment on above: Performed By: #### C BCDIFF #### [facility] [address] [place] [address] 18643 Eosinophils/100 WBC (Bld) 1.3 % Normal 0.0-6.1 [facility] Comment on above: Performed By: #### C BCDIFF #### [facility] [address] [place] [address] 29322 Erythrocyte distribution width (RBC) [Ratio] 14.6 % Normal 11.1-15.3 [facility] Comment on above: Performed By: #### C BCDIFF #### [facility] [address] [place] [address] 57883 Hematocrit (Bld) [Volume fraction] 41.7 % Normal 34.6-45.0 [facility] Comment on above: Performed By: #### C BCDIFF #### [facility] [address] [place] [address] 35020 Hemoglobin (Bld) [Mass/Vol] 14.1 g/dL Normal 11.5-15.5 [facility] Comment on above: Performed By: #### C BCDIFF #### [facility] [address] [place] [address] 19163 LY# 2.3 x(10)3/cumm Normal 0.8-2.9 [facility] Comment on above: Performed By: #### C BCDIFF #### [facility] [address] [place] [address] 16078 Lymphocytes/100 WBC (Bld) 30.5 % Normal 12.2-42.6 [facility] Comment on above: Performed By: #### C BCDIFF #### [facility] [address] [place] [address] 48947 MCH (RBC) [Entitic mass] 29.5 pg Normal 27.2-33.6 [facility] Comment on above: Performed By: #### C BCDIFF #### [facility] [address] [place] [address] 73651 MCHC (RBC) [Mass/Vol] 33.8 g/dL Normal 32.9-35.3 [facility] Comment on above: Performed By: #### C BCDIFF #### [facility] [address] [place], [place] [address] MCV (RBC) [Entitic vol] 87.2 fL Normal 81.3-96.7 [facility] Comment on above: Performed By: #### C BCDIFF #### [facility] [address] [place], [place] [address] MO# 0.5 x(10)3/cumm Normal 0.2-0.8 [facility] Comment on above: Performed By: #### C BCDIFF #### [facility] [address] [place], [place] [address] Monocytes/100 WBC (Bld) 7.2 % Normal 3.3-11.6 [facility] Comment on above: Performed By: #### C BCDIFF #### [facility] [address] [place] [address] 06640 NE# 4.6 x(10)3/cumm Normal 1.3-7.4 [facility] Comment on above: Performed By: #### C BCDIFF #### [facility] [address] [place], [place] [address] Neutrophils/100 WBC (Bld) 60.8 % Normal 44.9-78.8 [facility] Comment on above: Performed By: #### C BCDIFF #### [facility] [address] [place], [place] [address] Platelet mean volume (Bld) [Entitic vol] 8.4 fL Normal 6.4-10.0 [facility] Comment on above: Performed By: #### C BCDIFF #### [facility] [address] [place] [address] 90314 PLT 250 x(10)3/cumm Normal 138-367 [facility] Comment on above: Performed By: #### C BCDIFF #### [facility] [address] [place] [address] 13333 Plt Morph Normal [facility] Comment on above: Performed By: #### C BCDIFF #### [facility] [address] [place], [place] [address] RBC 4.78 X(10)6/cumm Normal 3.90-5.10 [facility] Comment on above: Performed By: #### C BCDIFF #### [facility] [address] [place] [address] 13770 RBC Morph cont Normal [facility] Comment on above: Performed By: #### C BCDIFF #### [facility] [address] [place], [place] [address] RBC morphology finding Nom (Bld) [facility] Comment on above: Performed By: #### C BCDIFF #### [facility] [address] [place], [place] [address] WBC 7.6 x(10)3/cumm Normal 3.6-10.3 [facility] Comment on above: Performed By: #### C BCDIFF #### [facility] [address] [place] [address] 26422 WBC Morph Normal [facility] Comment on above: Performed By: #### C BCDIFF #### [address] [address] [facility]242020 CKD-EPI Estimated Glomerular Filtration Rate (eGFR) is calculated using the 2020 CKD-EPI creatinine equation. This equation uses serum creatinine, sex and age for calculating the eGFR. [facility] Comment on above: Performed By: #### C MP, B12 #### [place] [id number] Albumin [Mass/Vol] 4.9 g/dL Normal 3.5-5.2 [facility] Comment on above: Performed By: #### C MP, B12 #### [facility] [address] [place], [place] [phone] ALP [Catalytic activity/Vol] 111 U/L Normal 35-129 [facility] Comment on above: Performed By: #### C MP, B12 #### [facility] [address] [place], [place] [address] ALT [Catalytic activity/Vol] 41 U/L Normal <=41 [facility] Comment on above: Performed By: #### C MP, B12 #### [facility] [address] [place] [address] Anion gap [Moles/Vol] 11 mmol/L Normal 8-15 [facility] Comment on above: Performed By: #### C MP, B12 #### [facility] [address] [place], [place] [address] AST [Catalytic activity/Vol] 32 U/L Normal <=40 [facility] Comment on above: Performed By: #### C MP, B12 #### [facility] [address] [place], [place] [address] Bili, Total 0.2 mg/dL Normal <=1.2 [facility] Comment on above: Performed By: #### C MP, B12 #### [facility] [address] [place], [place] [address] Calcium [Mass/Vol] 10.1 mg/dL Normal 8.6-10.6 [facility] Comment on above: Performed By: #### C MP, B12 #### [facility] [address] [place], [place] [address] Chloride [Moles/Vol] 102 mmol/L Normal 98-[address] [facility] Comment on above: Performed By: #### C MP, B12 #### [facility] [address] [place], [place] [address] CO2 [Moles/Vol] 28 mmol/L Normal 22-29 [facility] Comment on above: Performed By: #### C MP, B12 #### [facility] [address] [place], [place] [id number] Creatinine [Mass/Vol] 0.6 mg/dL Normal 0.5-1.2 [facility] Comment on above: Performed By: #### C MP, B12 #### [facility] [address] [place], [place] [address] eGFR 106 mL/min/1.73sqm Normal >=60 [facility] Comment on above: Performed By: #### C MP, B12 #### [facility] [address] [place], [place] [address] Glucose [Mass/Vol] 111 mg/dL High 74-109 [facility] Comment on above: Performed By: #### C HARISH, B12 #### [facility] [address] [place], [place] [address] Potassium [Moles/Vol] 4.7 mmol/L Normal 3.4-5.1 [facility] Comment on above: Performed By: #### C HARISH, B12 #### [facility] [address] [place], [place] [address] Prot Total 7.0 g/dL Normal 6.4-8.3 [facility] Comment on above: Performed By: #### C HARISH, B12 #### [facility] [address] [place], [place] [address] Sodium [Moles/Vol] 141 mmol/L Normal 136-145 [facility] Comment on above: Performed By: #### C HARISH, B12 #### [facility] [address] [place], [place] [address] Urea nitrogen [Mass/Vol] 6 mg/dL Normal 6-23 [facility] Comment on above: Performed By: #### C MP, B12 #### [place] [id number] TSH with FT4 Reflexon 2023 Biotin Interference Concentrations of Bi otin in excess of 100ng/ml in patient samples can potentially result in interference of TSH. Normal [facility] Comment on above: Performed By: #### T SHFT4R #### [address] [place] [address] TSH 1.06 uIU/mL Normal 0.27-4.20 [facility] Comment on above: Performed By: #### T SHFT4R #### [address] [address] TSH comment <0.001% of patients express a rare TSH variant which yields falsely low values in this assay. Interpret low TSH values along with T4 and T3 levels and the clinical history. [facility] Comment on above: Performed By: #### T SHFT4R #### [address] [address] Vitamin B12on 03-11-2024 Biotin Interference Samples should not b e taken from patients receiving therapy with high biotin doses (i.e. >5mg/day) until at least 8 hours following the last biotin administration. [facility] Comment on above: Performed By: #### C MP, B12 #### [place] [id number] Cobalamin (Vitamin B12) [Mass/Vol] 741 pg/mL Normal 232-1245 [facility] Comment on above: Performed By: #### C MP, B12 #### [address] [address] Office Visiton 03-06-2024 Follow-up visit [id number] Ragnii Mensah 1970 F Date Provider Department Center 03/06/2024 [facility] None Family History Problem Relation Age of Onset Thyroid disease Mother Skin cancer Sister 47 Uterine cancer Maternal Grandmother 32 Lung cancer Maternal Grandfather 75 Skin cancer Mother's Sister 58 Breast cancer Mother's Sister 83 Breast cancer Maternal Cousin 30 - 39 Breast cancer Maternal Cousin 68 Breast cancer Maternal Cousin 50 - 59 Breast cancer Maternal Great-Grandmother 78 Family Status - Relation Status Age at Mother Father Sister Alive Maternal Grandmother Maternal Grandfather Paternal Grandmother Paternal Grandfather Mother's Sister Alive Maternal Cousin Alive Maternal Cousin Alive Maternal Cousin Alive Maternal Great-Grandmother Level of Service:81679 MO OFFICE/OUTPATIENT NEW MODERATE MDM 45 MINUTES Reason for Visit and Comments: 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 [facility] Progress Noteon 03-06-2024 Progress Note DATE OF SERVICE: PATIENT NAME: Ragini Mensah : 1970 AGE: 53 y.o. 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 Subjective HISTORY OF PRESENT ILLNESS: This is a 53 y.o. female who presents for evaluation of skin lesion. Patient has seen a cell biologist in the past. C/o-skin lesion located on the left chest x 2-3 years. Admits itching. Admits changes in size. Denies previous treatment. C/o-skin lesion located on the left axilla x 2-3 years. Patient states the lesion is a skin tag. Denies itching, bleeding, pain. Denies changes in size, shape, color. Denies previous treatment. C/o-skin lesion located on the left arm x 2-3 years. Patient states the lesion is a fatty lump. Admits itching, bleeding. Denies changes in size, shape, color. Denies previous treatment. Patient has no h/o of ATN. Patient has no h/o of AKs. Patient has no personal h/o skin cancer. Patient has no family h/o melanoma. History of pacemaker/ defibrillator? No History of HIV/ Hep C? No Allergies to Lidocaine, Epinephrine, Latex or Adhesive? Sensitive to Lidocaine. Social History: Born/raised in [place]. Excessive sun exposure: Yes Used tanning beds: No Patient does wear SPF. Patient does not use additional sun protection measures. REVIEW OF SYSTEMS: General/Constitutional Feels well; denies h/o fatigue, weight change, night sweats, fevers or chills. Lymphatic Denies swollen lymph nodes. Dermatologic As per HPI There were no vitals filed for this visit. GENERAL APPEARANCE:?Alert & oriented x3, pleasant. Well developed, well nourished. PSYCH: appropriate mood and affect DERMATOLOGY: 1. Xerosis cutis (2) Left Elbow - Posterior, Right Elbow - Posterior Lichenification of skin bilateral elbows [x]Chronic []Acute/New []Stable [x]Flaring/Exacerbation []Uncertain Prognosis []OTC Management [x]Prescription Management Appropriate skin care is critical. Gentle non-soap cleansers should be utilized. The liberal use of bland emollients is essential. These products should be fragrance and dye free. Use gentle, fragrance free, dye free soaps, cleanser (Aquaphor, Aveeno, CeraVe, Cetaphil, Eucerin, La Obi Posay, Neutrogena, Vaseline, Vanicream), and laundry products (usually found in a white bottle or box). Dry skin care and importance of liberal emollient use reviewed. Creams come in tubes or tubs and tend to be thicker resulting in better hydration. Lotions tend to come in pumps and are more watery. Both will help with hydration but the creams tend to have a more occlusive barrier which hold more water in the skin cells. Start: - ammonium lactate (Lac-Hydrin) 12 % lotion BID Related Medications ammonium lactate (Lac-Hydrin) 12 % lotion Apply topically once a day. 2. Seborrheic keratosis Left Breast Diego-brown waxy papule(s) and plaque(s) Reassured that this is a benign lesion and does not require any treatment. Educated that if the lesion changes color, becomes larger, bleeds, becomes bothersome or painful then it should be reevaluated. Patient expresses understanding and is agreeable to plan. 3. Skin tags, multiple acquired Left Axilla Flesh colored pedunculated papule(s) without signs of irritation/inflammation. Reassured that this is a benign lesion and does not require any treatment. Educated that if the lesion changes color, becomes larger, bleeds, becomes bothersome or painful then it should be reevaluated. Patient expresses understanding and is agreeable to plan. 4. Multiple benign melanocytic nevi of both upper extremities, both lower extremities, and trunk Left Breast Scattered uniform diego/brown nevoid macules and papules; showing normal patterns with dermoscopy Reassured that this is a benign lesion and does not require any treatment. Educated that if the lesion changes color, becomes larger, bleeds, becomes bothersome or painful then it should be reevaluated. Patient expresses understanding and is agreeable to plan. 5. Dermatofibroma Right Lower Leg - Anterior Firm hyperpigmented papule(s) This is a benign growth that may occur secondary to trauma or insect bite, although the exact cause or manner of development is unknown. Orders Placed This Encounter Medications ammonium lactate (Lac-Hydrin) 12 % lotion Sig: Apply topically once a day. Dispense: 225 g Refill: 2 No follow-ups on file. Radha Morgan PA-C 03/06/24 8:45 AM REFERRING MD: Normal [facility] Office Visiton 02-15-2024 Follow-up visit [id number] Ragini Mensah 1970 F Date Provider Department Center 02/15/2024 [id number], BRANDON R [facility] OR None Family History Problem Relation Age of Onset Thyroid disease Mother Skin cancer Sister 47 Uterine cancer Maternal Grandmother 32 Lung cancer Maternal Grandfather 75 Skin cancer Mother's Sister 58 Breast cancer Mother's Sister 83 Breast cancer Maternal Cousin 30 - 39 Breast cancer Maternal Cousin 68 Breast cancer Maternal Cousin 50 - 59 Breast cancer Maternal Great-Grandmother 78 Family Status - Relation Status Age at Mother Father Sister Alive Maternal Grandmother Maternal Grandfather Paternal Grandmother Paternal Grandfather Mother's Sister Alive Maternal Cousin Alive Maternal Cousin Alive Maternal Cousin Alive Maternal Great-Grandmother Level of Service:84832 MO OFFICE/OUTPATIENT NEW LOW MDM 30 MINUTES Reason for Visit and Comments: New Patient [542] - Right hand pain Normal [facility] Progress Noteon 02-15-[address] [facility] [place] [address] [facility] [address] [place] [id number] Dept: [phone] Dept 02/15/2024 Chief Complaint Patient presents with New Patient Right hand pain HPI Ragini Mensah is a 53 y.o. right handed female that presents for evaluation of pain and multiple bumps in her RIGHT hand . Symptoms have been present for greater than 2 year(s). The symptoms started after no known injury or trauma. Pain Characteristics Described as aching Worse with gripping Alleviated acetaminophen Severity 5 on scale of 1-10 Previous Treatments NSAIDs: No - Have not tried Injection: No - Has never received an injection Therapy: No - Has not attempted formal therapy Splinting: No - Has not tried any splinting Surgery: No - Has not had previous surgery on the symptomatic extremity MRI: No Has not had an MRI No results found for: HGBA1C Past Surgical History: Procedure Laterality Date APPENDECTOMY 2015 BREAST BIOPSY Right 06/09/2015 core biopsy right breast x 2 (+) BREAST BIOPSY Left 06/23/2015 core biopsy left breast (-) BREAST ENHANCEMENT SURGERY Bilateral 2005 BREAST LUMPECTOMY Right 07/20/2015 RSL right breast lumpectomy BREAST SURGERY Bilateral [...] SALPINGOOPHORECTOMY Bilateral 09/2015 Laparoscopic TMJ ARTHROPLASTY (HISTORICAL) 87/89/98/12 x's 4 TMJ ARTHROSCOPY (HISTORICAL) TONSILLECTOMY AND ADENOIDECTOMY (HISTORICAL) 1975 TUBAL LIGATION 2004 WISDOM TOOTH EXTRACTION Past Medical History: Diagnosis Date Allergic rhinitis Arthritis Back pain BRCA1 negative 2016 BRCA2 negative 2016 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, 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 Crohn's colitis (CMS/HCC) (HCC) Diabetes (HCC) Controled by diet GERD (gastroesophageal reflux disease) Hyperlipidemia MVP (mitral valve prolapse) hx of Osteoarthritis Personal history of irradiation 2016 R breast Restless leg syndrome Tachycardia TMJ (dislocation of temporomandibular joint) Allergies Allergen Reactions Bee Pollen Anaphylaxis Bee Venom Anaphylaxis Dust Mite Extract Other Reaction(s): nasal congenstion Honey Bee Venom Anaphylaxis Ibuprofen Other Reaction(s): Unable due to Chrons Molds & Smuts Propoxyphene Hives Nsaids Other Gastric problems Acetaminophen Hives Asa [Aspirin] Grohns Asacol [Mesalamine] Hives Formoterol Humira [Adalimumab] Hives Iothalamate Levaquin [Levofloxacin] Hives Levofloxacin In D5w Hives Macrobid [Nitrofurantoin] Lethargy sleep Methylprednisolone Sodium Succ Hives Nitrofurantoin Macrocrystal Nausea Only and Other lethergy Reglan [Metoclopramide] Tardive dyskinesia Solu-Medrol [Methylprednisolone] Hives Sulfadiazine Hives Zithromax [Azithromycin] GI upset Current Outpatient Medications Medication Sig Dispense Refill BD Pen Needle Micro U/F 32G X 6 MM misc cephalexin (Keflex) 500 MG capsule TAKE ONE CAPSULE BY MOUTH THREE TIMES DAILY FOR 7 DAYS dicyclomine (Bentyl) 20 MG tablet fluconazole (Diflucan) 200 MG tablet ipratropium (Atrovent) 0.03 % nasal spray alpha tocopherol (Vitamin E) 400 units capsule Take 800 Units by mouth. anastrozole (Arimidex) 1 MG tablet Every 24 hours. atorvastatin (Lipitor) 10 MG tablet Take 10 mg by mouth in the morning. atorvastatin (Lipitor) 20 MG tablet 1 tab(s) orally qhs for 30 day(s) atorvastatin (Lipitor) 40 MG tablet Take 1 tablet by mouth daily. cetirizine (ZyrTEC) 10 MG tablet Take 10 mg by mouth. Daily dicyclomine (Bentyl) 10 MG capsule 1 CAPSULE ORALLY THREE TIMES A DAY NEEDED FOR ABDOMINAL PAIN 90 DAYS dicyclomine (Bentyl) 10 MG/ML injection 2 caps orally four times a day as needed diphenhydrAMINE (BENADryl) 25 MG tablet Take 25 mg by mouth. diphenoxylate-atropine (Lomotil) 2.5-0.025 MG tablet Take 2 tablets 4 times a day by oral route as needed. EPINEPHrine (Epipen) 0.3 MG/0.3ML injection syringe TAKE 1 AUTO EVERY DAY BY INJECTION ROUTE NEEDED. ezetimibe (Zetia) 10 MG tablet Take 10 mg by mouth daily. fexofenadine-pseudoephedrin e ER (Taryn-D) 60-120 MG 12 hr tablet Take 1 tablet by mouth. folic acid (Folvite) 1 MG tablet Take by mouth daily. glimepiride (Amaryl) 4 MG tablet Take 4 mg by mouth every morning (before breakfast). 2 daily HYDROcodone-acetaminophen ([place]) 5-325 MG tablet Take 2 tablets by mouth Nightly. HYDROcodone-acetaminophen (Vicodin) 5-300 MG tablet 1 tab(s) or (more content not included)... Normal [facility] XR HAND 3+ VIEWS RIGHTon XR HAND 3+ VIEWS RIGHT No fracture dislocation or foreign bodyyou maintain 1 is within normal limits with normal SL angle and SL interval radial lunocapitate line within normal limits [facility] without significant arthritic changes Normal [facility] Actual Experience System [facility] XR Hand - right 3 Viewson No fracture dislocat ion or foreign bodyyou maintain 1 is within normal limits with normal SL angle and SL interval radial lunocapitate line within normal limits CMC without significant arthritic changes [facility] Radiology Study observation (narrative) [facility] DEXA BONE DENSITY AXIAL SKEL ETONon 02-09-2024 DEXA BONE DENSITY AXIAL SKELETON Patient Name: RAGINI MENSAH : 1970 Exam Date/Time: 02/09/2024 14:22 Procedure: DEXA BONE DENSITY AXIAL SKELETON Ordering Provider: LOWE DANIELLE Reason For Exam: [id number] DEXA BONE DENSITOMETRY: CLINICAL INDICATION: Asymptomatic post-menopausal status COMPARISON: 01/05/2018 TECHNIQUE: Quantitative bone mineral densitometry of the hip and lumbar spine was performed with a dual energy x-ray observed absorptiometry device - [employer] Horizon W. Regions of interest were obtained through the left proximal femur and compared to the normal value of the young adult. Regions of interest were also obtained through the lumbar vertebrae with an average value determined and compared with the young adult. The measured bone density minus the bone density of the young normal reference divided by the reference standard deviation is expressed as the T score. Using the same formula adjusting the reference density and standard deviation for age and race determines the Z score. According to World Health Organization criteria: T-score of -1.0 or higher is normal. T-score between -1.0 and -2.5 is low bone density or osteopenia. T-score of -2.5 or lower is abnormally low, compatible with osteoporosis. T-score of -2.5 or less plus fragility fracture indicates severe osteoporosis. FINDINGS: Spine: L1-L4 Density 0.97 g/cm2. T-score: -0.7 Z-score: 0.2 Comparison from prior examination:BMD was 1.17 g/cm2 Hip: Femoral neck Density: 0.66 g/cm2. T-score: -1.7 Z-score: -0.8 Hip: Total hip Density: 0.81 g/cm2. T-score: -1.1 Z-score: -0.5 Comparison from prior examination:BMD was 0.91 g/cm2 IMPRESSION: Osteopenia FRACTURE RISK: The estimated 10 year risk for a major osteoporosis-related fracture is 10 % and risk for hip fracture is 1.1 % (FRAX web version 3.08). The current National Osteoporosis Foundation Guide recommends pharmacologic treatment for patients with FRAX 10-year risk scores of > 20% for major osteoporotic fracture or > 3% for hip fracture, to reduce their fracture risk. FOLLOW-UP RECOMMENDATIONS: Patients with osteoporosis or or at high risk for fracture should have follow-up bone density tests. For Medicare patients, routine testing is allowed every 2 years. Patients who have low bone mass (T score -2.0 to -2.49), who are currently on treatment for low bone mass, or having risk factors for accelerated bone loss (glucocorticoids, aromatase inhibitors, etc.), consider repeat DXA in 1-2 years. Patients with osteopenia and no risk factors may consider follow-up every 3-5 years. Report Dictated on Electronically Signed By: Kevin Mckeon MD Electronically Signed Date/Time: 02/09/2024 4:10 PM EDT Normal [employer] Actual Experience [facility] DXA Skeletal system.axial Vi ews for bone densityon 02-09-2024 Osteopenia FRACTURE RISK: The estimated 10 year risk for a major osteoporosis-related fracture is 10 % and risk for hip fracture is 1.1 % (FRAX web version 3.08). The current National Osteoporosis Foundation Guide recommends pharmacologic treatment for patients with FRAX 10-year risk scores of > 20% for major osteoporotic fracture or > 3% for hip fracture, to reduce their fracture risk. FOLLOW-UP RECOMMENDATIONS: Patients with osteoporosis or or at high risk for fracture should have follow-up bone density tests. For Medicare patients, routine testing is allowed every 2 years. Patients who have low bone mass (T score -2.0 to -2.49), who are currently on treatment for low bone mass, or having risk factors for accelerated bone loss (glucocorticoids, aromatase inhibitors, etc.), consider repeat DXA in 1-2 years. Patients with osteopenia and no risk factors may consider follow-up every 3-5 years. Report Dictated on Electronically Signed By: Kevin Mckeon MD Electronically Signed Date/Time: 02/09/2024 4:10 PM EDT [facility] Patient Name: RAGINI MENSAH : 1970 Exam Date/Time: 02/09/2024 14:22 Procedure: DEXA BONE DENSITY AXIAL SKELETON Ordering Provider: LOWE DANIELLE Reason For Exam: [id number] DEXA BONE DENSITOMETRY: CLINICAL INDICATION: Asymptomatic post-menopausal status COMPARISON: 01/05/2018 TECHNIQUE: Quantitative bone mineral densitometry of the hip and lumbar spine was performed with a dual energy x-ray observed absorptiometry device - [employer] Horizon W. Regions of interest were obtained through the left proximal femur and compared to the normal value of the young adult. Regions of interest were also obtained through the lumbar vertebrae with an average value determined and compared with the young adult. The measured bone density minus the bone density of the young normal reference divided by the reference standard deviation is expressed as the T score. Using the same formula adjusting the reference density and standard deviation for age and race determines the Z score. According to World Health Organization criteria: T-score of -1.0 or higher is normal. T-score between -1.0 and -2.5 is low bone density or osteopenia. T-score of -2.5 or lower is abnormally low, compatible with osteoporosis. T-score of -2.5 or less plus fragility fracture indicates severe osteoporosis. FINDINGS: Spine: L1-L4 Density 0.97 g/cm2. T-score: -0.7 Z-score: 0.2 Comparison from prior examination:BMD was 1.17 g/cm2 Hip: Femoral neck Density: 0.66 g/cm2. T-score: -1.7 Z-score: -0.8 Hip: Total hip Density: 0.81 g/cm2. T-score: -1.1 Z-score: -0.5 Comparison from prior examination:BMD was 0.91 g/cm2 [facility] Kevin Mckeon MD - 02/09/2024 Patient Name: RAGINI MENSAH : 1970 Exam Date/Time: 02/09/2024 14:22 Procedure: DEXA BONE DENSITY AXIAL SKELETON Ordering Provider: LOWE DANIELLE Reason For Exam: [id number] DEXA BONE DENSITOMETRY: CLINICAL INDICATION: Asymptomatic post-menopausal status COMPARISON: 01/05/2018 TECHNIQUE: Quantitative bone mineral densitometry of the hip and lumbar spine was performed with a dual energy x-ray observed absorptiometry device - [employer] Horizon W. Regions of interest were obtained through the left proximal femur and compared to the normal value of the young adult. Regions of interest were also obtained through the lumbar vertebrae with an average value determined and compared with the young adult. The measured bone density minus the bone density of the young normal reference divided by the reference standard deviation is expressed as the T score. Using the same formula adjusting the reference density and standard deviation for age and race determines the Z score. According to World Health Organization criteria: T-score of -1.0 or higher is normal. T-score between -1.0 and -2.5 is low bone density or osteopenia. T-score of -2.5 or lower is abnormally low, compatible with osteoporosis. T-score of -2.5 or less plus fragility fracture indicates severe osteoporosis. FINDINGS: Spine: L1-L4 Density 0.97 g/cm2. T-score: -0.7 Z-score: 0.2 Comparison from prior examination:BMD was 1.17 g/cm2 Hip: Femoral neck Density: 0.66 g/cm2. T-score: -1.7 Z-score: -0.8 Hip: Total hip Density: 0.81 g/cm2. T-score: -1.1 Z-score: -0.5 Comparison from prior examination:BMD was 0.91 g/cm2 IMPRESSION: Osteopenia FRACTURE RISK: The estimated 10 year risk for a major osteoporosis-related fracture is 10 % and risk for hip fracture is 1.1 % (FRAX web version 3.08). The current National Osteoporosis Foundation Guide recommends pharmacologic treatment for patients with FRAX 10-year risk scores of > 20% for major osteoporotic fracture or > 3% for hip fracture, to reduce their fracture risk. FOLLOW-UP RECOMMENDATIONS: Patients with osteoporosis or or at high risk for fracture should have follow-up bone density tests. For Medicare patients, routine testing is allowed every 2 years. Patients who have low bone mass (T score -2.0 to -2.49), who are currently on treatment for low bone mass, or having risk factors for accelerated bone loss (glucocorticoids, aromatase inhibitors, etc.), consider repeat DXA in 1-2 years. Patients with osteopenia and no risk factors may consider follow-up every 3-5 years. Report Dictated on Electronically Signed By: Kevin Mckeon MD Electronically Signed Date/Time: 02/09/2024 4:10 PM EDT [facility] Study observation (narrative) [facility] DXA Skeletal system.axial Vi ews for bone densityOrdered By: Kevin Mckeon on 02-09-2024 [facility] Work Phone: CNPNon 02-02-2024 [facility] Telephone (UROLIN) RAGINI MENSAH ([id number]) 1970 F Date Time Provider Department 02/02/24 JESUS CAMPOS During your visit today, we recorded the following information about you: Jesus Campos PA-C 02/02/2024 5:01 PM Signed Please, notify patient the urine culture was positive Treatment e-scripted: Macrobid 100 mg x 10 days Thank you, BETITO Reynolds MT, PA-C Clay, Kimberly, LPN 02/05/2024 1:44 PM Signed Called patient. No answer- left message to call clinic for results/orders and also aware [employer] message sent. Message sent to provider to clarify antibiotic order. ARMANDO Ludwig Brandon, PA-C 02/05/2024 6:38 PM Signed She has an allergy to Mactrobid so I changed it I Keflex BETITO Reynolds MT, PA-C Hiles, Laurie, MA 02/06/2024 1:20 PM Signed Pt notified via [employer]. Belen Sinclair MA Allergies As of Date: 02/02/2024 Noted Allergy Reaction CENTELLA ASIATICOSIDE 01/24/2023 4 - Hives DARVOCET A500 (PROPOXYPHENE N-LASHONDA*01/24/2023 4 - Hives HUMIRA (ADALIMUMAB) 01/24/2023 4 - Hives INSECT VENOM 01/24/2023 10 - Anaphylaxis LEVAQUIN (LEVOFLOXACIN) 01/24/2023 4 - Hives MACROBID (NITROFURANTOIN MONOHYD/*01/24/2023 14 - Other: See Comments Comments: Lethargy NSAIDS (NON-STEROIDAL ANTI-INFLAM*01/24/2023 14 - Other: See Comments Comments: D/T Crohns PREDNISONE 01/24/2023 4 - Hives REGLAN (METOCLOPRAMIDE) 01/24/2023 14 - Other: See Comments Comments: REGLAN- Tardive dyskinesia SOLU-MEDROL (METHYLPREDNISOLONE S*01/24/2023 4 - Hives SULFA (SULFONAMIDE ANTIBIOTICS) 01/24/2023 4 - Hives ZITHROMAX (AZITHROMYCIN) 01/24/2023 14 - Other: See Comments Comments: Nausea Date Reviewed: 01/30/2024 Reviewed by: Betzy Lemus LPN - Fully Assessed Reason for Visit: Results [95] Orders [681] Order(s):cephALEXin (KEFLEX) 500 mg capsuleTake 1 capsule by mouth three times a day for 7 days.Disp: 21 capsuleRfl: 0 Prescriptions as of 02/06/2024 - cephALEXin (KEFLEX) 500 mg capsule Take 1 capsule by mouth three times a day for 7 days. - vedolizumab (ENTYVIO) 300 mg injection 300 MG INTRAVENOUSLY EVERY 8 WEEKS - ezetimibe (ZETIA) 10 mg tablet Take 10 mg by mouth once daily. - ondansetron orally disintegrating (ZOFRAN ODT) 8 mg disintegrating tablet Take 8 mg by mouth every 8 hours as needed for nausea/vomiting. - glimepiride (AMARYL) 4 mg tablet Take 8 mg by mouth daily at bedtime. - venlafaxine (EFFEXOR) 37.5 mg tablet Take 37.5 mg by mouth daily at bedtime. - omeprazole (PRILOSEC) 40 mg capsule Take 40 mg by mouth once daily. - cetirizine (ZYRTEC) 10 mg tablet Take 10 mg by mouth daily at bedtime. - tiZANidine (ZANAFLEX) 4 mg tablet Take 4 mg by mouth daily at bedtime. Takes 8 MG - metoprolol succinate ER (TOPROL XL) 100 mg Take 1 tablet by mouth once daily. - rosuvastatin (CRESTOR) 40 mg tablet Take 40 mg by mouth once daily. - metFORMIN (GLUCOPHAGE) 1,000 mg tablet Take 1 tablet by mouth two times a day. - methotrexate 2.5 mg tablet Take 2.5 mg by mouth one time a week. 10 tablets - traZODone (DESYREL) 100 mg tablet Take 100 mg by mouth daily at bedtime. - promethazine (PHENERGAN) 25 mg tablet Take 25 mg by mouth at bedtime as needed. - insulin glargine U-300 conc (TOUJEO MAX U-300 SOLOSTAR) 300 unit/mL (3 mL) inpn Inject 84 Units subcutaneously once daily. - RYBELSUS 7 mg tablet Take 7 mg by mouth once daily. - acetaminophen (TYLENOL EX STR RAPID RELEASE ORAL) Take 500 mg by mouth as needed. - vedolizumab (ENTYVIO) 300 mg injection Inject 300 mg intravenously every 8 weeks. - folic acid 1 mg tablet Take 1 mg by mouth daily at bedtime. - lomitapide mesylate (LOMITAPIDE ORAL) Take 5 mg by mouth daily at bedtime. Problem List As Of Date: 02/02/2024 (None) Prescriptions ordered this encounter Disp Refills Start End CEPHALEXIN 500 MG CAPSULE 21 c* 0 02/02/2024 02/09/2024 Route: ORAL Sig: Take 1 capsule by mouth three times a day for 7 days. Encounter Status:Closed by BELEN SINCLAIR on 02/06/24 [facility] Bacteria Ur Culton 4 Bacteria identified Cx Nom (U) ORGANISM ID: 1 >=100,000 CFU/ml Escherichia coli ORGANISM ID: 1 (ESCHERICHIA COLI) --------- ANTIBIOTIC INTERPRETATION ZION STATUS REFERENCE RANGE --------- Ampicillin S <=2 F Susceptible <=8 , Intermediate >8 , Resistant >16 Cefazolin S <=4 F Susceptible 0-16 , Intermediate <0 or >16 , Resistant >16 For uncomplicated urinary tract infections, cefazolin results can be used to predict susceptibility or resistance to cephalexin. Ceftriaxone S <=1 F Susceptible <=1 , Intermediate >1 , Resistant >=4 Cefepime S <=1 F Susceptible <=2 , Susceptible-Dose Dependent >2 , Resistant >=16 Ertapenem S <=0.5 F Susceptible <=0.5 , Intermediate >.5 , Resistant >1 Meropenem S <=0.25 F Susceptible <=1 , Intermediate >1 , Resistant >2 Ampicillin/Sulbact S <=2 F Susceptible <=8 , Intermediate >8 , Resistant >16 Piperacillin/Tazobac S <=4 F Susceptible <16 , Susceptible-Dose Dependent >=16 , Resistant >=32 Gentamicin S <=1 F Susceptible <=2 , Intermediate >2 , Resistant >=8 Tobramycin S <=1 F Susceptible <4 , Intermediate >=4 , Resistant >=8 Trimeth sulfameth S <=20 F Susceptible <=40 , Resistant >40 Ciprofloxacin S <=0.25 F Susceptible <0.5 , Intermediate >=.5 , Resistant >=1 Nitrofurantoin S <=16 F Susceptible <=32 , Intermediate >32 , Resistant >64 Abnormal [facility] Comment on above: Performed By: #### 6 30-4 #### [facility] CLIA [id number] [address] [place] [address] STATES OF [facility] CNOVon 01-30-2024 CNOV Office Visit (UROLWS ) RAGINI MENSAH ([id number]) 1970 F Date Time Provider Department 01/30/24 8:00 AM JESUS CAMPOS UROLWS During your visit today, we recorded the following information about you: Temperature Pulse Respiration Blood pressure 98.2 degrees 94/minute 14/minute 132/76 Weight Height 80.3 kg 1.676 m Betzy Lemus LPN 01/30/2024 8:52 AM Signed Verified name and date of . CC Post Void Residual HPI: Ragini Mensah is a 53 year old female. The patient is here now for an appointment with BETITO Reynolds MT, PA-COV. Procedure: Explained procedure to patient and verbalizes understanding. Performed a PVR. Patient urinated and instructed to empty bladder as much as possible just prior to having PVR done using bladder ultrasound scanner. Results of scan: 39 mL The patient tolerated the procedure well. Plan: Appointment with Jesus Markham PA-C 01/30/2024 8:52 AM Signed [facility] PATIENT CLINIC NOTE NAME: Ragini Mensah CHIEF COMPLAINT: Follow up for Urine retention HISTORY OF PRESENT ILLNESS: Ragini Mensah is a 53 year old female following up for her history of urethral stricture and urinary retention using CIC twice per day , she has not had dilation for years and seems to continue to urinate well without obstruction, she has bladder spasms at times but seems to be less often that before Refilled her catheters to [facility], currently doing 2 time daily Renal US without hydronephrosis, stones or mass LUTS: EMPTIES COMPLETELY: No UTI: No GROSS HEMATURIA: no MEDICATIONS: vedolizumab (ENTYVIO) 300 mg injection 300 MG INTRAVENOUSLY EVERY 8 WEEKS ezetimibe (ZETIA) 10 mg tablet Take 10 mg by mouth once daily. ondansetron orally disintegrating (ZOFRAN ODT) 8 mg disintegrating tablet Take 8 mg by mouth every 8 hours as needed for nausea/vomiting. glimepiride (AMARYL) 4 mg tablet Take 8 [...] bedtime. (Patient not taking: Reported on 01/24/2023) PAST MEDICAL HISTORY: PAST MEDICAL HISTORY Diagnosis Date Arthritis, multiple joint involvement Body mass index 29.0-29.9, adult Breast cancer (HCC) H/O Chronic nausea Crohn disease (HCC) Dyslipidemia Environmental and seasonal allergies Former smoker GERD (gastroesophageal reflux disease) H/O urethral stricture Hypertension goal BP (blood pressure) < 140/90 Intertrigo Major depression Muscle spasm Overweight with body mass index (BMI) 25.0-29.9 Port-A-Cath in place Raynaud phenomenon Self-catheterizes urinary bladder Type 2 diabetes mellitus with hyperglycemia, without long-term current use of insulin (HCC) Urinary retention REVIEW OF SYSTEMS: GENERAL: No fever, chills, weight loss, or fatigue. PHYSICAL EXAMINATION: Blood pressure 132/76, pulse 94, temperature 36.8 ?C (98.2 ?F), temperature source Temporal, resp. rate 14, height 167.6 cm (5' 6), weight 80.3 kg (177 lb), SpO2 96%. GENERAL: WNL nutrition, no deformities, healthy appearing PROBLEM LIST REVIEW: Yes LABS: Results for orders placed or performed in visit on 01/30/24 UA DIP, URINE (POC) Result Value Ref Range GLUCOSE UA (POCT) Negative Negative mg/dL BILIRUBIN UA (POCT) Negative Negative KETONE UA (POCT) Negative Negative mg/dL SPECIFIC GRAVITY UA (POCT) 1.010 1.005 - 1.030 HEMOGLOBIN/BLOOD UA (POCT) Trace-intact (A) Negative PH UA (POCT) 6.0 4.5 - 8.0 PROTEIN UA (POCT) Negative Negative mg/dL UROBILINOGEN UA (POCT) 0.2 Normal E.U./dL NITRI (more content not included)... Normal [facility] UA DIP, URINE (POC)on 2023 BILIRUBIN UA (POCT) Negative Negative [facility] CLARITY UA (POCT) Slightly Cloudy Cl [facility] COLOR UA (POCT) Yellow [facility] GLUCOSE UA (POCT) Negative Negative mg/dL [facility] Hemoglobin Ql (U) Trace-intact Abnormal Negative [facility] Interpretation and review of laboratory results Abnormal [facility] KETONE UA (POCT) Negative Negative mg/dL [facility] LEUKOCYTES UA (POCT) Small Abnormal Negative [facility] NITRITE UA (POCT) Negative Negative [facility] PH UA (POCT) 6.0 4.5 - 8.0 [facility] Protein Ql (U) Negative Negative mg/dL [facility] SPECIFIC GRAVITY UA (POCT) 1.010 1.005 - 1.030 [facility] UROBILINOGEN UA (POCT) 0.2 Normal E.U./dL [facility] Location:[facility], [address] [facility], [place], [place], [id number] [place] [address] POINT OF CARE [facility] CBC + DIFFon 01-08-2024 Baso # 0.01 x10EE3/UL Normal 0.00 - 0.10 [facility] Comment on above: Performed By: #### 2 59920 #### [facility],[address] [place] [address] 59444 Basophils/100 WBC (Bld) 0.3 % Normal 0.0 - 2.0 [facility] Comment on above: Performed By: #### 2 28926 #### [facility],[address] [place] [address] 94898 CBC + DIFF Normal [facility] Comment on above: Result Comment: CBC- COMPLETE BLOOD COUNT Performed By: #### 2 65618 #### [facility],[address] [place] [address] EO # 0.18 x10EE3/UL Normal 0.00 - 0.50 [facility] Comment on above: Performed By: #### 2 36058 #### [facility],[address] [place] [address] 82558 Eosinophils/100 WBC (Bld) 3.2 % Normal 0.0 - 7.0 [facility] Comment on above: Performed By: #### 2 00767 #### [facility],[address] [place] [address] 69097 Erythrocyte distribution width (RBC) [Ratio] 14.7 % Normal 12.0 - 15.6 [facility] Comment on above: Performed By: #### 2 78333 #### [facility],[address] [place] [address] 31384 Hematocrit (Bld) [Volume fraction] 40.2 % Normal 34.0 - 46.0 [facility] Comment on above: Performed By: #### 2 74656 #### [facility],[address] [place] [address] Hemoglobin (Bld) [Mass/Vol] 13.5 g/dL Normal 12.0 - 16.0 [facility] Comment on above: Performed By: #### 2 71470 #### [facility],[address] [place] [address] Lymph # 1.63 x10EE3/UL Normal 0.80 - 2.80 [facility] Comment on above: Performed By: #### 2 58883 #### [facility],[address] [place] [address] Lymphocytes/100 WBC (Bld) 29.4 % Normal 20.0 - 45.0 [facility] Comment on above: Performed By: #### 2 39327 #### [facility],[address] [place] [address] MANUAL DIFF N/A Normal [facility] Comment on above: Performed By: #### 2 58014 #### [facility],[address] [place], [place] [id number] MCH (RBC) [Entitic mass] 29 pg Normal 27 - 33 [facility] Comment on above: Performed By: #### 2 09806 #### [facility],[address] [place], [place] [id number] MCHC 34 X10 3 Normal 32 - 36 [facility] Comment on above: Performed By: #### 2 72196 #### [facility],[address] [place], [place] [id number] MCV (RBC) [Entitic vol] 87 fL Normal 80 - 99 [facility] Comment on above: Performed By: #### 2 55723 #### [facility],[address] [place], [place] [id number] [place] # 0.37 x10EE3/UL Normal 0.20 - 1.00 [facility] Comment on above: Performed By: #### 2 76474 #### [facility],[address] [place] [address] 10449 MONOS % 6.7 % Normal 0.0 - 10.0 [facility] Comment on above: Performed By: #### 2 31240 #### [facility],[address] [place] [address] 31663 Morphology Jose (Bld) [Interp] N/A Normal [facility] Comment on above: Performed By: #### 2 31356 #### [facility],[address] [place] [address] 70900 Neut # 3.35 x10EE3/UL Normal 1.50 - 7.10 [facility] Comment on above: Performed By: #### 2 60534 #### [facility],[address] [place] [address] 30746 Neutrophils/100 WBC (Bld) 60.5 % Normal 46.0 - 76.0 [facility] Comment on above: Performed By: #### 2 40765 #### [facility],[address] [place] [address] 66129 PLATELET 261 x10EE3/UL Normal 150 - 450 [facility] Comment on above: Performed By: #### 2 32215 #### [facility],[address] [place] [address] 08881 Platelet mean volume (Bld) [Entitic vol] 8.1 fL Normal 6.6 - 10.5 [facility] Comment on above: Result Comment: AUTO MATED DIFFERENTIAL Performed By: #### 2 03918 #### [facility],[address] [place] [address] 23966 RBC 4.63 x 10EE6/UL Normal 4.10 - 5.30 [facility] Comment on above: Performed By: #### 2 11402 #### [facility],[address] [place] [address] 83714 WBC 5.5 x 10EE3/UL Normal 4.5 - 10.8 [facility] Comment on above: Performed By: #### 2 05028 #### [facility],[address] [place] [address] 56986 CMP with eGFRon 01-08-2024 AGE 53 years Normal [facility] Comment on above: Performed By: #### 2 71821 #### [facility],[address] [place] [address] 71582 Albumin [Mass/Vol] 3.8 g/dL Normal 3.4 - 5.0 [facility] Comment on above: Performed By: #### 2 88579 #### [facility],[address] [place] [address] 42978 Albumin/Globulin [Mass ratio] 1.1 {ratio} Normal 0.9 - 1.6 [facility] Comment on above: Performed By: #### 2 74827 #### [facility],[address] [place] [address] 22418 ALK PHOS 99 U/L Normal 46 - 116 [facility] Comment on above: Performed By: #### 2 20418 #### [facility],[address] [place] [address] 52655 ALT [Catalytic activity/Vol] 45 U/L Normal 16 - 63 [facility] Comment on above: Performed By: #### 2 65195 #### [facility],[address] [place] [address] 47841 Anion gap [Moles/Vol] 12 mmol/L Normal 10 - 20 [facility] Comment on above: Performed By: #### 2 91427 #### [facility],[address] [place] [address] 04213 AST [Catalytic activity/Vol] 27 U/L Normal 13 - 39 [facility] Comment on above: Performed By: #### 2 90860 #### [facility],[address] [place] [address] 27376 B/C RATIO 18 ratio Normal 0 - 30 [facility] Comment on above: Performed By: #### 2 64672 #### [facility],[address] [place] [address] 16124 Bilirubin [Mass/Vol] 0.3 mg/dL Normal 0.2 - 1.0 [facility] Comment on above: Performed By: #### 2 13726 #### [facility],[address] [place] [address] 30803 Calcium [Mass/Vol] 9.1 mg/dL Normal 8.5 - 10.1 [facility] Comment on above: Performed By: #### 2 70804 #### [facility],[address] [place] [address] 11487 Chloride [Moles/Vol] 101 mmol/L Normal 98 - 107 [facility] Comment on above: Performed By: #### 2 93030 #### [facility],[address] [place] [address] 60446 CMP with eGFR Normal [facility] Comment on above: Result Comment: COMP REHENSIVE METABOLIC PANEL Performed By: #### 2 53365 #### [facility],[address] [place] [address] 19721 CO2 [Moles/Vol] 30.6 mmol/L Normal 21.0 - 32.0 [facility] Comment on above: Performed By: #### 2 13821 #### [facility],[address] [place] [address] 17342 Creatinine [Mass/Vol] 0.62 mg/dL Normal 0.55 - 1.02 [facility] Comment on above: Performed By: #### 2 03169 #### [facility],[address] [place] [address] 35533 GFR/1.73 sq M.predicted among non-blacks MDRD (S/P/Bld) [Vol rate/Area] mL/min/{1.73_m2} Normal 60 - 999 [facility] Comment on above: Performed By: #### 2 43037 #### [facility],[address] [place] [address] 79937 Result Comment: ACCO RDING TO THE NATIONAL KIDNEY DISEASE EDUCATION PROGRAM(NKDE), A NORMAL eGFR IS A VALUE GREATER THAN OR EQUAL TO 60 ML/MIN/1.73 SQ METERS. CHRONIC KIDNEY DISEASE: <60mL/MIN/1.73 SQ METERS KIDNEY FAILURE: <15mL/MIN/1.73 SQ METERS THIS TEST SHOULD ONLY BE USED FOR PATIENTS 18 YEARS OF AGE AND OLDER. Globulin (S) [Mass/Vol] 3.5 g/dL Normal 1.5 - 3.8 [facility] Comment on above: Performed By: #### 2 60238 #### [facility],[address] [place] [address] 70394 Glucose [Mass/Vol] 178 mg/dL High 74 - 106 [facility] Comment on above: Performed By: #### 2 54775 #### [address] [address] Potassium [Moles/Vol] 4.1 mmol/L Normal 3.5 - 5.1 [facility] Comment on above: Performed By: #### 2 69907 #### [facility],[address] [place] [address] 28897 Protein [Mass/Vol] 7.3 g/dL Normal 6.4 - 8.2 [facility] Comment on above: Performed By: #### 2 40493 #### [facility],[address] [place] [address] 77023 Sodium [Moles/Vol] 139 mmol/L Normal 136 - 145 [facility] Comment on above: Performed By: #### 2 75586 #### [facility],[address] [place] [address] 95371 Urea nitrogen [Mass/Vol] 11 mg/dL Normal 7 - 18 [facility] Comment on above: Performed By: #### 2 94244 #### [address] [address] HEMOGLOBIN A1C (POM)on 01-07 Glucose [Mass/Vol] 159.9 mg/dL High 0.0 - 0.0 [facility] Comment on above: Result Comment: BLDo HEMOGLOBIN A1C REFERENCE RANGESBLDo Suggested Diagnosis HbA1c(%) HbA1C (mmol/mol Diabetic >/=6.5 >/=48 Prediabetes 5.7 - 6.4 39 - 47 Normal <5.7 <39 Performed By: #### 2 05799 #### [facility],[address] [place] [address] 25803 HbA1c (Bld) [Mass fraction] 7.2 % High 0.0 - 6.5 [facility] Comment on above: Performed By: #### 2 15279 #### [facility],[address] [place] [address] 59050 LIPID PROFILEon 01-08-2024 Cholesterol [Mass/Vol] 173 mg/dL Normal 0 - 240 [facility] Comment on above: Performed By: #### 2 88441 #### [facility],[address] [place] [address] 54912 Cholesterol in HDL [Mass/Vol] 43 mg/dL Normal 40 - 60 [facility] Comment on above: Performed By: #### 2 87819 #### [facility],[address] [place] [address] 83070 Cholesterol.total/Ch olesterol in HDL [Mass ratio] 4.0 {ratio} Normal 0.0 - 5.0 [facility] Comment on above: Performed By: #### 2 41199 #### [facility],[address] [place] [address] 53545 LDL N/A Normal 0 - 129 [facility] Comment on above: Performed By: #### 2 15254 #### [facility],[address] [place] [address] 53200 Lipid 1996 panel Normal [facility] Comment on above: Result Comment: LIPI D PROFILE Performed By: #### 2 22441 #### [facility],[address] [place] [address] 76679 Triglyceride [Mass/Vol] 404 mg/dL High 0 - 150 [facility] Comment on above: Performed By: #### 2 47893 #### [facility],[address] [place], [place] [phone] URINE MICROALBUMIN W/CREATIN INE, RANDOMon 01-08-2024 CREATININE UR 62.09 mg/dl Normal [facility] Comment on above: Performed By: #### 2 90048 #### [facility],[address] [place] [address] MICROALBUMIN UR 0.4 mg/dL Normal 0.1 - 11.6 [facility] Comment on above: Performed By: #### 2 37518 #### [facility],[address] [place] [address] UACR 6 mg/g Normal [facility] Comment on above: Performed By: #### 2 32963 #### [facility],[address] [place], [place] [phone] C-Reactive Proteinon 024 CRP [Mass/Vol] mg/L Normal <=9.9 [facility] Comment on above: Performed By: #### C MP, CRPR #### [facility] [address] [place] [address] 92971 CBC with Diffon 12-18-2023 BA# 0.0 x(10)3/cumm Normal 0.0-0.1 [facility] Comment on above: Performed By: #### C BCDIFF #### [facility] [address] [place] [address] 93720 Basophils/100 WBC (Bld) 0.3 % Normal 0.0-1.0 [facility] Comment on above: Performed By: #### C BCDIFF #### [facility] [address] [place] [address] 32246 EO# 0.3 x(10)3/cumm Normal 0.0-0.4 [facility] Comment on above: Performed By: #### C BCDIFF #### [facility] [address] [place] [address] 71444 Eosinophils/100 WBC (Bld) 3.5 % Normal 0.0-6.1 [facility] Comment on above: Performed By: #### C BCDIFF #### [facility] [address] [place] [address] 98730 Erythrocyte distribution width (RBC) [Ratio] 14.8 % Normal 11.1-15.3 [facility] Comment on above: Performed By: #### C BCDIFF #### [facility] [address] [place] [address] 70776 Hematocrit (Bld) [Volume fraction] 39.3 % Normal 34.6-45.0 [facility] Comment on above: Performed By: #### C BCDIMARIANO #### [facility] [address] [place] [address] 57217 Hemoglobin (Bld) [Mass/Vol] 13.7 g/dL Normal 11.5-15.5 [facility] Comment on above: Performed By: #### C BCDIMARIANO #### [facility] [address] [place] [address] 28777 LY# 2.3 x(10)3/cumm Normal 0.8-2.9 [facility] Comment on above: Performed By: #### C BCDIMARIANO #### [facility] [address] [place] [address] 78646 Lymphocytes/100 WBC (Bld) 30.2 % Normal 12.2-42.6 [facility] Comment on above: Performed By: #### C BCDIFF #### [facility] [address] [place] [address] 56682 MCH (RBC) [Entitic mass] 30.1 pg Normal 27.2-33.6 [facility] Comment on above: Performed By: #### C BCDIFF #### [facility] [address] [place] [address] 17592 MCHC (RBC) [Mass/Vol] 34.7 g/dL Normal 32.9-35.3 [facility] Comment on above: Performed By: #### C BCDIFF #### [facility] [address] [place] [address] 11279 MCV (RBC) [Entitic vol] 86.8 fL Normal 81.3-96.7 [facility] Comment on above: Performed By: #### C BCDIFF #### [facility] [address] [place] [address] 75229 MO# 0.4 x(10)3/cumm Normal 0.2-0.8 [facility] Comment on above: Performed By: #### C BCDIFF #### [facility] [address] [place] [address] 31962 Monocytes/100 WBC (Bld) 5.1 % Normal 3.3-11.6 [facility] Comment on above: Performed By: #### C BCDIFF #### [facility] [address] [place] [address] 03267 NE# 4.7 x(10)3/cumm Normal 1.3-7.4 [facility] Comment on above: Performed By: #### C BCDIFF #### [facility] [address] [place] [address] 20126 Neutrophils/100 WBC (Bld) 60.9 % Normal 44.9-78.8 [facility] Comment on above: Performed By: #### C BCDIFF #### [facility] [address] [place] [address] 08636 Platelet mean volume (Bld) [Entitic vol] 8.7 fL Normal 6.4-10.0 [facility] Comment on above: Performed By: #### C BCDIFF #### [facility] [address] [place] [address] 66057 PLT 239 x(10)3/cumm Normal 138-367 [facility] Comment on above: Performed By: #### C BCDIFF #### [facility] [address] [place] [address] 09395 Plt Morph Normal [facility] Comment on above: Performed By: #### C BCDIFF #### [facility] [address] [place] [address] 00203 RBC 4.53 X(10)6/cumm Normal 3.90-5.10 [facility] Comment on above: Performed By: #### C BCDIFF #### [facility] [address] [place], [place] [phone] RBC Morph cont [facility] Comment on above: Performed By: #### C BCDIFF #### [facility] [address] [place], [place] [phone] RBC morphology finding Nom (Bld) [facility] Comment on above: Performed By: #### C BCDIFF #### [facility] [address] [place], [place] [phone] WBC 7.8 x(10)3/cumm Normal 3.6-10.3 [facility] Comment on above: Performed By: #### C BCDIFF #### [facility] [address] [place], [place] [phone] WBC Morph [facility] Comment on above: Performed By: #### Hans BCDIFF #### [facility] [address] [place], [place] [phone] [facility] Metabolic [facility] 12-18-20232020 CKD-EPI Estimated Glomerular Filtration Rate (eGFR) is calculated using the 2020 CKD-EPI creatinine equation. This equation uses serum creatinine, sex and age for calculating the eGFR. [facility] Comment on above: Performed By: #### C HARISH CRPR #### [facility] [address] [place], [place] [phone] Albumin [Mass/Vol] 4.7 g/dL Normal 3.5-5.2 [facility] Comment on above: Performed By: #### C HARISH CRPR #### [facility] [address] [place], [place] [phone] ALP [Catalytic activity/Vol] 112 U/L Normal 35-129 [facility] Comment on above: Performed By: #### C HARISH CRPR #### [facility] [address] [place], [place] [phone] ALT [Catalytic activity/Vol] 49 U/L High <=41 [facility] Comment on above: Performed By: #### C HARISH CRPR #### [facility] [address] [place] [address] 58761 Anion gap [Moles/Vol] 11 mmol/L Normal 8-15 [facility] Comment on above: Performed By: #### C MP, CRPR #### [facility] [address] [place] [address] 74233 AST [Catalytic activity/Vol] 29 U/L Normal <=40 [facility] Comment on above: Performed By: #### C MP, CRPR #### [facility] [address] [place] [address] 08673 Bili, Total 0.2 mg/dL Normal <=1.2 [facility] Comment on above: Performed By: #### C HARISH, CRPR #### [facility] [address] [place] [address] 02987 Calcium [Mass/Vol] 10.0 mg/dL Normal 8.6-10.6 [facility] Comment on above: Performed By: #### C MP, CRPR #### [facility] [address] [place] [address] 02908 Chloride [Moles/Vol] 101 mmol/L Normal 98-[address] [facility] Comment on above: Performed By: #### C MP, CRPR #### [facility] [address] [place] [address] 45658 CO2 [Moles/Vol] 31 mmol/L High 22-29 [facility] Comment on above: Performed By: #### C MP, CRPR #### [facility] [address] [place] [address] 96710 Creatinine [Mass/Vol] 0.7 mg/dL Normal 0.5-1.2 [facility] Comment on above: Performed By: #### C MP, CRPR #### [facility] [address] [place] [address] 33867 eGFR 103 mL/min/1.73sqm Normal >=60 [facility] Comment on above: Performed By: #### C MP, CRPR #### [facility] [address] [place] [address] 25168 Glucose [Mass/Vol] 129 mg/dL High 74-109 [facility] Comment on above: Performed By: #### C MP, CRPR #### [facility] [address] [place] [address] 87483 Potassium [Moles/Vol] 3.9 mmol/L Normal 3.4-5.1 [facility] Comment on above: Performed By: #### C MP, CRPR #### [facility] [address] [place] [address] 32847 Prot Total 7.0 g/dL Normal 6.4-8.3 [facility] Comment on above: Performed By: #### C MP, CRPR #### [facility] [address] [place] [address] 60654 Sodium [Moles/Vol] 143 mmol/L Normal 136-145 [facility] Comment on above: Performed By: #### C MP, CRPR #### [facility] [address] [place] [id number] Urea nitrogen [Mass/Vol] 8 mg/dL Normal 6-23 [facility] Comment on above: Performed By: #### C MP, CRPR #### [facility] [address] [place] [id number] NM Gastric Emptying Studyon 12-14-2023 NM Gastric Emptying Study Study: Gastric emptying study. Clinical indication: Nausea Dose: 1 mCi tc-99m sulfur colloid in standard meal TECHNIQUE: Anterior and posterior imaging was obtained over the abdomen for up to four hours. Geometric mean values were utilized to determine gastric emptying fraction. Findings: At one hour, the amount remaining in the stomach is 70. The normal range is 37-90 %. At two hours, the percentage of contents remaining in the stomach is 31%. Normal range 19- 52%. At four hours, 2.0% remains in the stomach, normally less than 10%. Impression: Normal gastric emptying of solids. Report Dictated on Authenticated by: Tiffanie Purcell On: 12/14/2023 12:59 Read by: TIFFANIE PURCELL MD, Date: 12/14/2023 12:59 Normal [facility] DBT Breast - bilateral diagn osticon 09-20-2023 Stable postsurgical changes in the right breast. No mammographic evidence of malignancy in the right or left breast. Markings on images: BB's = Nipples; skin lesions Open zuni = Palpable Line = Scar ASSESSMENT: Category 2 Benign RECOMMENDATION: Return to normal screening Bilateral Report Dictated on Electronically Signed By: Shruthi Steele MD Electronically Signed Date/Time: 09/20/2023 9:48 AM EDT [facility] 1970 [id number] Exam Date/Time: 09/20/2023 09:46 Procedure: BI MAMMOGRAM DIAGNOSTIC TOMOSYNTHESIS BILATERAL Ordering Provider: ROJAS VICTORIA Reason For Exam: BIRAD 3 Right Prior study Comparisons: 2022; 2018 Image views: 2D CC and MLO views were acquired. 3D CC and MLO views were acquired. Tissue Density: BIRADS B - There are scattered fibroglandular densities. Images were reviewed with CAD. Findings: The patient presented for an outside institution for follow-up of right breast architectural distortion. The area of architectural distortion corresponds to chronically stable post surgical changes. There are no new suspicious masses, architectural distortions, or suspiciously clustered microcalcifications in the right or left breast. There has been no significant interval change from prior studies. [facility] Shruthi Steele MD - 09/20/2023 Patient Name: RAGINI [facility]EN[facility]H [facility] 1970 [id number] Exam Date/Time: 09/20/2023 09:46 Procedure: BI MAMMOGRAM DIAGNOSTIC TOMOSYNTHESIS BILATERAL Ordering Provider: ROJAS VICTORIA Reason For Exam: BIRAD 3 Right Prior study Comparisons: 2022; 2018 Image views: 2D CC and MLO views were acquired. 3D CC and MLO views were acquired. Tissue Density: BIRADS B - There are scattered fibroglandular densities. Images were reviewed with CAD. Findings: The patient presented for an outside institution for follow-up of right breast architectural distortion. The area of architectural distortion corresponds to chronically stable post surgical changes. There are no new suspicious masses, architectural distortions, or suspiciously clustered microcalcifications in the right or left breast. There has been no significant interval change from prior studies. IMPRESSION: Stable postsurgical changes in the right breast. No mammographic evidence of malignancy in the right or left breast. Markings on images: BB's = Nipples; skin lesions Open zuni = Palpable Line = Scar ASSESSMENT: Category 2 Benign RECOMMENDATION: Return to normal screening Bilateral Report Dictated on Electronically Signed By: Shruthi Steele MD Electronically Signed Date/Time: 09/20/2023 9:48 AM EDT [facility] Actual Experience Radiology Study observation (narrative) [employer] Actual Experience DBT Breast - bilateral diagn osticOrdered By: Shruthi Steele on 09-20-2023 [employer] Actual Experience Work Phone: US Kidney - bilateral and Ur inary bladderon 06-08-2023 [facility] Basophil percentageOrdered B y: José Miguel Burris on 05-11-2023 Basophil percentage < 1.0 mg/dL 0.55-1.02 [facility] No Panel InformationOrdered By: José Miguel Burris on 05-11-2023 Bedside Estimated GFR (eGFR) > 60.0000 mL/min >60 [facility] UA DIP, URINE (POC)on 2022 BILIRUBIN UA (POCT) Negative Negative [facility] CLARITY UA (POCT) [facility] Yellow [facility] GLUCOSE UA (POCT) 500 mg/dL Abnormal Negative mg/dL [facility] Hemoglobin Ql (U) Negative Negative [facility] KETONE UA (POCT) Negative Negative mg/dL [facility] LEUKOCYTES UA (POCT) Negative Negative [facility] NITRITE UA (POCT) Negative [facility] PH UA (POCT) 5.5 4.5 - 8.0 [facility] Protein Ql (U) Negative Negative mg/dL [facility] SPECIFIC GRAVITY UA (POCT) 1.010 1.005 - 1.030 [facility] UROBILINOGEN UA (POCT) 0.2 E.U./dL Normal E.U./dL [facility] Radiation Onc F/U Noteon Radiation Onc F/U Note [facility] Radiation Oncology RADIATION ONCOLOGY FOLLOW UP PATIENT: Ragini Mensah DATE OF SERVICE: 10/06/2020 [facility] MRN: : 1970 AGE: 50 PRIMARY SITE: Right breast, DCIS, ER positive, and MO positive. STAGE: pTis, cN0 M0; 0. VUS-MSH2 gene on [employer] testing. HISTORY OF PRESENT ILLNESS: This is a 50-year-old white female who was noted to have an abnormal mammogram on May 20, 2015. She underwent lumpectomy on 07/20/2015 followed by postoperative radiation which completed 10/09/2015. She was placed on Arimidex which she continues. INTERVAL SINCE RADIATION: 5 years 08/24/15 - 09/29/15: 45.00/45.00 Gy to the R Breast in 25 fractions of 1.80 Gy using the 3D technique with 6 T 15 MV over 36 days. 09/30/15 - 10/09/15: 16.00/16.00 Gy to the R Brst Surg Site Bst in 8 fractions of 2.00 Gy using the 3D technique with 9 MeV over 9 days. INTERVAL HISTORY: Patient returns today for follow-up. She is doing well. Appetite and energy level are stable. She denies any breast issues. She has been following with the breast center and medical oncology. No cardiac or respiratory complaints. Since last seen she underwent an injection for a frozen shoulder. No new health issues otherwise. She is moving to [place] this weekend. PAST MEDICAL HISTORY: Prepectoral saline implants were placed in July of 2004; Crohn's disease diagnosed in her 30's, she was on Humira up until the intestinal resection last year. She is now on second immunotherapy. Raynaud's was diagnosed in 2002. JAMES positive. She has an enteropathic arthritis associated with Crohn's disease. She follows regularly with the air conditioning technician. She notes that they did an extensive work up and did not find sign of connective tissue disorder. She has been on methotrexate since the mid 2014. She was followed for tachycardia and is on medicine for this. GE reflux disease, TMJ requiring multiple surgeries, chronic back pain, chronic abdominal pain, fibromyalgia, and diet controlled non-insulin dependent diabetes. Microemboli were seen at the time of colonoscopy about 13 years ago while on oral control. She attempted to go on Trental, but notes that she was unable to tolerate the drug due to the that she was on. History of depression in high school. Restless legs syndrome. PAST SURGICAL HISTORY: Breast surgery as above. She has had the appendix and terminal ileum resected in May of 2014, breast saline implants prepectoral in July of 2004, laparoscopic cholecystectomy, endometrial ablation, and tubal ligation. She has had 5 TMJ surgeries and 7 D and C surgeries. She has had wisdom teeth removed. In March 2016 implants were removed and a mastopexy was performed. ALLERGIES: mesalamine; propoxyphene; levofloxacin; NSAIDS; methylprednisolone sodium succ; sulfa; azithromycin; ADALIMUMAB MEDICATIONS: 1. Arimidex - 1 Tablet Oral Daily 2. Bentyl - 1 Tablet Oral Four times a day 3. Creon - 2 Capsule Oral 4. Desyrel - 1 Tablet Oral Daily 5. Effexor - 1 Tablet Oral Daily 6. Folvite - 1 Tablet Oral Daily 7. Lipitor - 1 Tablet Oral Daily 8. magnesium - 1 Tablet Oral Daily 9. metformin - 2 Tablet Oral Twice a Day 10. metHOTREXate (PF) - SQ weekly 11. Phenergan - 1 Tablet Oral As needed 12. Prilosec - 1 Capsule Oral Daily 13. Reglan - Tablet Oral Twice a Day 14. Toprol XL - 2 Tablet Oral Daily 15. vedolizumab - IV 16. Vicodin - 1 Tablet PO 17. Zanaflex - 1 Tablet Oral Daily 18. Zofran ODT - 1 Tablet Oral As needed 19. Zyrtec - 1 Tablet Oral Daily Last Reconciled by Kayla Westbrook MD on 10/06/2020 SUMMARY OF SIGNIFICIANT X-RAY/LABORATORY FINDINGS: Mammogram on 02/14/2020 noted posttreatment related changes. One year follow-up was recommended. REVIEW OF SYSTEMS: Pain: 0 - No pain As above. KPS: 100 - Normal; no complaints; no evidence of disease PHYSICAL EXAMINATION: VITALS: Temperature 97.5 F (10/06/20), Pulse 90 (10/06/20), Respirations 16 (10/06/20), Blood Pressure 125/79 (10/06/20) Weight 162 pounds 10/06/20 GENERAL: Awake, alert, oriented, no anxiety, dressed appropriately, appears younger than stated age. Ambulates without assistance. Speech pattern fluent. LUNGS: Clear to auscultation. No rales or rhonchi. HEART: Regular rate and rhythm, S1-S2 noted no murmur. NECK: Symmetric. NODES: No neck, supraclavicular, infraclavicular, or axillary adenopathy. ABDOMEN: Soft, nontender, nondistended. No hepatosplenomegaly, no suspicious mass. BREAST: Bilateral reconstructed sites are in excellent condition. Minimal scarring in the region. No suspicious mass in either breast. No nipple discharge. MUSCULOSKELETAL: No spine or posterior chest wall tenderness. Good range of motion in the shoulders. No gross arm edema evident. IMPRESSION: This is a 50-year-old female with history of DCIS of the right breast, status post con (more content not included)... Normal [facility] Clinical Lists Update: Prelo ad Extendedon 03-13-2020 Tobacco smoking status MTIS Tobacco smoking status [facility] Work Phone: Clinical Summary: HMSPatient IDon 03-13-2020 KOP [facility] Work Phone: Clinical Summary: Outcome Prajapati mmaryon 03-13-2020 Adult DLA20 Question 1 RN [facility] Work Phone: Adult DLA20 Question 10 0 [facility] Work Phone: Adult DLA20 Question 11 1 [facility] Work Phone: Adult DLA20 Question 12 1 [facility] Work Phone: Adult DLA20 Question 13 0 [facility] Work Phone: Adult DLA20 Question 14 0 [facility] Work Phone: Adult DLA20 Question 15 0 [facility] Work Phone: Adult DLA20 Question 16 1 [facility] Work Phone: Adult DLA20 Question 17 1 [facility] Work Phone: Adult DLA20 Question 2 Reading [facility] Work Phone: Adult DLA20 Question 3 Yes [facility] Work Phone: Adult DLA20 Question 4 Yes [facility] Work Phone: Adult DLA20 Question 5 Yes [facility] Work Phone: Adult DLA20 Question 6 2 [facility] Work Phone: Adult DLA20 Question 7 5 [facility] Work Phone: Adult DLA20 Question 8 1 [facility] Work Phone: Adult DLA20 Question 9 0 [facility] Work Phone: Adult DLA20 SUM 33.35 [facility] Work Phone: diagnostic criteria for SLE #1 2 [facility] Work Phone: diagnostic criteria for SLE #10 3 [facility] Work Phone: diagnostic criteria for SLE #11 9 [facility] Work Phone: diagnostic criteria for SLE #12 20 [facility] Work Phone: diagnostic criteria for SLE #13 32.4 [facility] Work Phone: diagnostic criteria for SLE #14 67.6 [facility] Work Phone: diagnostic criteria for SLE #15 0.85304 [facility] Work Phone: diagnostic criteria for SLE #2 5 [facility] Work Phone: diagnostic criteria for SLE #3 2 [facility] Work Phone: diagnostic criteria for SLE #4 5 [facility] Work Phone: diagnostic criteria for SLE #5 5 [facility] Work Phone: diagnostic criteria for SLE #6 5 [facility] Work Phone: diagnostic criteria for SLE #7 4 [facility] Work Phone: diagnostic criteria for SLE #8 5 [facility] Work Phone: diagnostic criteria for SLE #9 3 [facility] Work Phone: Clinical Summary: Scanned Hi story Summaryon 03-12-2020 Allergy comments / Special Instructions CANNOT TAKE NSAIDS OR ASA [facility]: cause of , father SMOKE INHALATION [facility] Work Phone: cause of , mother RESP. FAILURE [facility] Work Phone: Cholesterol [Mass/Vol] ArthritisCancerCrohn's diseaseDiabetes - non-insulin dependentGERigh cholesterolIrritable bowel syndrome [facility] Work Phone: comments about allergies DARVOCET, ASACOL, SOLUMEDROL, PREDNISONE, LEVAQUIN, ZITHROMAX,HUMIRA, MACROBID [facility] Work Phone: data entered by patient, alcohol (ethanol or ETOH) use No [facility] Work Phone: Data entered by patient, allergy list Sulfa drugsStinging insectsI don't have any Food Allergies [facility] Work Phone: data entered by patient, drug (of abuse) use No [facility] Work Phone: data entered by patient, Employer Name employed [facility] Work Phone: data entered by patient, exercise history No [facility] Work Phone: data entered by patient, father's medical history Alcoholism [facility] Work Phone: Data entered by patient, history of past surgeries Abdominal SurgeryAppendectomyBreast reconstructionBreast surgery otherCesarean sectionGallbladder surgeryTonsillectomy [facility] Work Phone: Data entered by patient, medication list metoprolol succinate-50 mg.-Unknown Zzyfdl-PVFvjtsckmoy-860 mg.-Unknown Bgobwi-FMAxmlbpsj-9/300 MG.-7-efrceelkrpy-3 EP-6-KKDvouyaaufdwsj calcium-20 MG-Unknown Xajcpr-WKQMMKJYN-08 MG-Unknown Awaclf-KQQDEXBXUYUMI-27 MG-Unknown Dosage-BIDFOLIC ACID-1 MG-Unknown Ekncna-RGAQDXAGTBHGRCB-8.5 FW-7-QPIKHGEWGJBBDE-1 MG-Unknown Oiudrz-RDSTRQWPULVG-3085 MG-Unknown Evcxfs-QUGLFLYPGILV-921 DV-6-APSpajeupgmkzj-10 HQ-2-DOGXEGLBKL-2.5 MG.-Unknown Yrdycp-FFKIFSPXFBCBPI-97.5 MG-Unknown Uzjmka-IGYNVZQYO-1 MG-Unknown Dosage-BID AND PRNPROMETHAZINE-25 MG-Unknown Lpmzhm-FOWWXVTNRNG-18 MG-Unknown Psevxm-IWKOJWPPLJLP-722 MG-Unknown Kmuond-QVQGMGVPG-73 MG-Unknown Dosage-BID AND PRNENTYVIO-Unknown Nybbbbfv-OB-X 8 WEEKS [facility] Work Phone: data entered by patient, social history, current smoker former smoker [facility] Work Phone: data entered by patient, social history, marital status [facility] Work Phone: father of patient is alive or [facility] Work Phone: Housing Type: apartment, house, residential, trailer, none house [facility] Work Phone: housing unit size (asthma environmental history, housing) (from single family to don't know) 2 floors [facility] Work Phone: mother of patient is alive or [facility] Work Phone: Number of dependent children No [facility] Work Phone: MG Breast Tomosynthesis Scr Blon 02-14-2020 MG Breast Tomosynthesis Scr Bl Patient Name: ARGINI MENSAH Mammography Exam Date/Time 02/14/2020 14:50:31 EDT Exam MG Breast Tomosynthesis BI Scr Ordering Physician LORETTA MURPHY HEIDI Accession Number [id number] CPT4 Codes 01206 (MG Breast Tomosynthesis Scr Bl), 55847 (MG MAMMO 2D SCREENING) Reason For Exam screening Report TIME SINCE LAST MAMMOGRAM: Last mammogram was performed 1 year and 3 months ago. REASON FOR EXAM: history of breast cancer, conservation therapy. PROCEDURE: MG BREAST TOMOSYNTHESIS BL SCR: FEBRUARY 14, 2020 - 2D/3D Procedure 3D Bilateral CC and MLO view(s) were taken. 2D Bilateral CC and MLO view(s) were taken. Prior study comparison: November 09, 2018, bilateral MG breast tomosynthesis bl scr performed at [facility]. July 26, 2017, bilateral MG breast tomosynthesis bl scr performed at [facility]. July 04, 2016, bilateral MG breast tomosynthesis bl performed at [facility]. TISSUE DENSITY: BIRADS B - There are scattered fibroglandular densities. . FINDINGS: Global architectural distortion is noted from prior breast reduction surgery. No suspicious masses, architectural distortions or suspiciously clustered microcalcifications are identified. There is no evidence of skin thickening or nipple retraction. There are no significant changes when compared with prior studies. Markings on images: BB's = Nipples; skin lesions Open zuni = Palpable Line = Scar 2D digital mammography and tomosynthesis imaging were performed and reviewed with CAD. ASSESSMENT: Category 2 Benign RECOMMENDATION: Routine screening mammogram of both breasts in 1 year. . Report Dictated on Final Signed Date and Time: 02/17/2020 11:08 am Signed by: MD ANDERSON DIANE Normal [facility] WILFREDO FRANSICO DIGITAL DIAGNOSTIC UNILATERAL LEFTon 06-21-2019 Patient Name: RAGINI MENSAH ---Mammography--- Exam Date/Time 06/21/2019 13:31:38 EST Exam MG Breast Tomosynthesis Left Ordering Physician Víctor MURGUIA VICTORIA Accession Number [id number] CPT4 Codes 71182 (MG Breast Tomosynthesis Left), 37451 (MG MAMMO 2D DIAGNOSTIC) Reason For Exam dark colored spontaneous discharg Report TIME SINCE LAST MAMMOGRAM: Last mammogram was performed 7 months ago. REASON FOR EXAM: clinical finding. INDICATED PROBLEM: Indicated problem(s): left breast non-bloody discharge (yellow) for 5 days discharge is also brownish PROCEDURE: MG BREAST TOMOSYNTHESIS LEFT: JUNE 21, 2019 - 2D/3D Procedure 3D views: CC and MLO view(s) were taken of the left breast. 2D views: CC, MLO, and MLO view(s) were taken of the left breast. Prior study comparison: November 09, 2018, bilateral MG breast tomosynthesis bl scr performed at [facility]. July 26, 2017, bilateral MG breast tomosynthesis bl scr performed at [facility]. June 04, 2015, bilateral MG mammogram digital diagnostic bilat performed at [facility]. March 28, 2013, bilateral MG mammogram digital diagnostic bilat performed at [facility]. TISSUE DENSITY: There are scattered fibroglandular densities. . FINDINGS: The patient is a 48-year-old who presents with left breast nipple discharge x5 days. A tissue marker is redemonstrated in the anterior third of the upper outer quadrant of the left breast. No discrete masses, parenchymal distortion or suspicious calcifications are seen. There is no skin thickening or nipple retraction. Ultrasound was performed. Targeted ultrasound in the subareolar region of the left breast demonstrates no obvious solid or cystic masses. There is no evidence of ductal dilatation. The background echogenicity is homogeneous. IMPRESSION: There are no imaging findings to explain the patient's nipple discharge. Further evaluation of nipple discharge should proceed based on clinical parameters. Markings on images: BB's = Nipples; skin lesions Open zuni = Palpable Line = Scar US BREAST LIMITED LEFT: JUNE 21, 2019 - Standard views. 2D digital mammography and tomosynthesis imaging were performed and reviewed with CAD. ASSESSMENT: Category 1 Negative (Overall) RECOMMENDATION: Clinical correlation for nipple discharge. Routine screening mammogram of both breasts in October 2019. . Report Dictated on --- Final --- Signed Date and Time: 06/21/2019 2:28 pm Signed by: MD CALOS, [facility] Incoming Radiology Results From [facility] - 06/21/2019 3:40 PM EST Patient Name: RAGINI MENSAH ---Mammography--- Exam Date/Time 06/21/2019 13:31:38 EST Exam MG Breast Tomosynthesis Left Ordering Physician Víctor MURGUIA VICTORIA Accession Number [id number] CPT4 Codes 59924 (MG Breast Tomosynthesis Left), 72841 (MG MAMMO 2D DIAGNOSTIC) Reason For Exam dark colored spontaneous discharg Report TIME SINCE LAST MAMMOGRAM: Last mammogram was performed 7 months ago. REASON FOR EXAM: clinical finding. INDICATED PROBLEM: Indicated problem(s): left breast non-bloody discharge (yellow) for 5 days discharge is also brownish PROCEDURE: MG BREAST TOMOSYNTHESIS LEFT: JUNE 21, 2019 - 2D/3D Procedure 3D views: CC and MLO view(s) were taken of the left breast. 2D views: CC, MLO, and MLO view(s) were taken of the left breast. Prior study comparison: November 09, 2018, bilateral MG breast tomosynthesis bl scr performed at [facility]. July 26, 2017, bilateral MG breast tomosynthesis bl scr performed at [facility]. June 04, 2015, bilateral MG mammogram digital diagnostic bilat performed at [facility]. March 28, 2013, bilateral MG mammogram digital diagnostic bilat performed at [facility]. TISSUE DENSITY: There are scattered fibroglandular densities. . FINDINGS: The patient is a 48-year-old who presents with left breast nipple discharge x5 days. A tissue marker is redemonstrated in the anterior third of the upper outer quadrant of the left breast. No discrete masses, parenchymal distortion or suspicious calcifications are seen. There is no skin thickening or nipple retraction. Ultrasound was performed. Targeted ultrasound in the subareolar region of the left breast demonstrates no obvious solid or cystic masses. There is no evidence of ductal dilatation. The background echogenicity is homogeneous. IMPRESSION: There are no imaging findings to explain the patient's nipple discharge. Further evaluation of nipple discharge should proceed based on clinical parameters. Markings on images: BB's = Nipples; skin lesions Open zuni = Palpable Line = Scar US BREAST LIMITED LEFT: JUNE 21, 2019 - Standard views. 2D digital mammography and tomosynthesis imaging were performed and reviewed with CAD. ASSESSMENT: Category 1 Negative (Overall) RECOMMENDATION: Clinical correlation for nipple discharge. Routine screening mammogram of both breasts in October 2019. . Report Dictated on --- Final --- Signed Date and Time: 06/21/2019 2:28 pm Signed by: MD CALOS, ELIZABETH Mercado [place], [place] MG Breast Tomosynthesis Diag nostic Lefton 06-21-2019 MG Breast Tomosynthesis Diagnostic Left Patient Name: RAGINI MENSAH Mammography Exam Date/Time 06/21/2019 13:31:38 EST Exam MG Breast Tomosynthesis Left Ordering Physician Víctor MURGUIA VICTORIA Accession Number [id number] CPT4 Codes 11739 (MG Breast Tomosynthesis Left), 50059 (MG MAMMO 2D DIAGNOSTIC) Reason For Exam dark colored spontaneous discharg Report TIME SINCE LAST MAMMOGRAM: Last mammogram was performed 7 months ago. REASON FOR EXAM: clinical finding. INDICATED PROBLEM: Indicated problem(s): left breast non-bloody discharge (yellow) for 5 days discharge is also brownish PROCEDURE: MG BREAST TOMOSYNTHESIS LEFT: JUNE 21, 2019 - 2D/3D Procedure 3D views: CC and MLO view(s) were taken of the left breast. 2D views: CC, MLO, and MLO view(s) were taken of the left breast. Prior study comparison: November 09, 2018, bilateral MG breast tomosynthesis bl scr performed at [facility]. July 26, 2017, bilateral MG breast tomosynthesis bl scr performed at [facility]. June 04, 2015, bilateral MG mammogram digital diagnostic bilat performed at [facility]. March 28, 2013, bilateral MG mammogram digital diagnostic bilat performed at [facility]. TISSUE DENSITY: There are scattered fibroglandular densities. . FINDINGS: The patient is a 48-year-old who presents with left breast nipple discharge x5 days. A tissue marker is redemonstrated in the anterior third of the upper outer quadrant of the left breast. No discrete masses, parenchymal distortion or suspicious calcifications are seen. There is no skin thickening or nipple retraction. Ultrasound was performed. Targeted ultrasound in the subareolar region of the left breast demonstrates no obvious solid or cystic masses. There is no evidence of ductal dilatation. The background echogenicity is homogeneous. IMPRESSION: There are no imaging findings to explain the patient's nipple discharge. Further evaluation of nipple discharge should proceed based on clinical parameters. Markings on images: BB's = Nipples; skin lesions Open zuni = Palpable Line = Scar US BREAST LIMITED LEFT: JUNE 21, 2019 - Standard views. 2D digital mammography and tomosynthesis imaging were performed and reviewed with CAD. ASSESSMENT: Category 1 Negative (Overall) RECOMMENDATION: Clinical correlation for nipple discharge. Routine screening mammogram of both breasts in October 2019. . Report Dictated on Final Signed Date and Time: 06/21/2019 2:28 pm Signed by: MD LIVE LAUREN B [facility] US BREAST LIMITED LEFTon Patient Name: RAGINI MENSAH ---Ultrasound--- Exam Date/Time 06/21/2019 14:09:59 EST Exam US Breast Limited Left Ordering Physician Víctor MURGUIA VICTORIA Accession Number [id number] CPT4 Codes 74461 () Reason For Exam subareolar US LEFT Report TIME SINCE LAST MAMMOGRAM: Last mammogram was performed 7 months ago. REASON FOR EXAM: clinical finding. INDICATED PROBLEM: Indicated problem(s): left breast non-bloody discharge (yellow) for 5 days discharge is also brownish PROCEDURE: MG BREAST TOMOSYNTHESIS LEFT: JUNE 21, 2019 - 2D/3D Procedure 3D views: CC and MLO view(s) were taken of the left breast. 2D views: CC, MLO, and MLO view(s) were taken of the left breast. Prior study comparison: November 09, 2018, bilateral MG breast tomosynthesis bl scr performed at [facility]. July 26, 2017, bilateral MG breast tomosynthesis bl scr performed at [facility]. June 04, 2015, bilateral MG mammogram digital diagnostic bilat performed at [facility]. March 28, 2013, bilateral MG mammogram digital diagnostic bilat performed at [facility]. TISSUE DENSITY: There are scattered fibroglandular densities. . FINDINGS: The patient is a 48-year-old who presents with left breast nipple discharge x5 days. A tissue marker is redemonstrated in the anterior third of the upper outer quadrant of the left breast. No discrete masses, parenchymal distortion or suspicious calcifications are seen. There is no skin thickening or nipple retraction. Ultrasound was performed. Targeted ultrasound in the subareolar region of the left breast demonstrates no obvious solid or cystic masses. There is no evidence of ductal dilatation. The background echogenicity is homogeneous. IMPRESSION: There are no imaging findings to explain the patient's nipple discharge. Further evaluation of nipple discharge should proceed based on clinical parameters. Markings on images: BB's = Nipples; skin lesions Open zuni = Palpable Line = Scar US BREAST LIMITED LEFT: JUNE 21, 2019 - Standard views. 2D digital mammography and tomosynthesis imaging were performed and reviewed with CAD. ASSESSMENT: Category 1 Negative (Overall) RECOMMENDATION: Clinical correlation for nipple discharge. Routine screening mammogram of both breasts in October 2019. . Report Dictated on --- Final --- Signed Date and Time: 06/21/2019 2:28 pm Signed by: MD CALOS, ELIZABETH Mercado [facility] Incoming Radiology Results From [facility] - 06/21/2019 3:40 PM EST Patient Name: RAGINI MENSAH ---Ultrasound--- Exam Date/Time 06/21/2019 14:09:59 EST Exam US Breast Limited Left Ordering Physician Víctor MURGUIA VICTORIA Accession Number [id number] CPT4 Codes 46640 () Reason For Exam subareolar US LEFT Report TIME SINCE LAST MAMMOGRAM: Last mammogram was performed 7 months ago. REASON FOR EXAM: clinical finding. INDICATED PROBLEM: Indicated problem(s): left breast non-bloody discharge (yellow) for 5 days discharge is also brownish PROCEDURE: MG BREAST TOMOSYNTHESIS LEFT: JUNE 21, 2019 - 2D/3D Procedure 3D views: CC and MLO view(s) were taken of the left breast. 2D views: CC, MLO, and MLO view(s) were taken of the left breast. Prior study comparison: November 09, 2018, bilateral MG breast tomosynthesis bl scr performed at [facility]. July 26, 2017, bilateral MG breast tomosynthesis bl scr performed at [facility]. June 04, 2015, bilateral MG mammogram digital diagnostic bilat performed at [facility]. March 28, 2013, bilateral MG mammogram digital diagnostic bilat performed at [facility]. TISSUE DENSITY: There are scattered fibroglandular densities. . FINDINGS: The patient is a 48-year-old who presents with left breast nipple discharge x5 days. A tissue marker is redemonstrated in the anterior third of the upper outer quadrant of the left breast. No discrete masses, parenchymal distortion or suspicious calcifications are seen. There is no skin thickening or nipple retraction. Ultrasound was performed. Targeted ultrasound in the subareolar region of the left breast demonstrates no obvious solid or cystic masses. There is no evidence of ductal dilatation. The background echogenicity is homogeneous. IMPRESSION: There are no imaging findings to explain the patient's nipple discharge. Further evaluation of nipple discharge should proceed based on clinical parameters. Markings on images: BB's = Nipples; skin lesions Open zuni = Palpable Line = Scar US BREAST LIMITED LEFT: JUNE 21, 2019 - Standard views. 2D digital mammography and tomosynthesis imaging were performed and reviewed with CAD. ASSESSMENT: Category 1 Negative (Overall) RECOMMENDATION: Clinical correlation for nipple discharge. Routine screening mammogram of both breasts in October 2019. . Report Dictated on --- Final --- Signed Date and Time: 06/21/2019 2:28 pm Signed by: MD CALOS, ELIZABETH Mercado [place], [place] US Breast Limited Lefton US Breast Limited Left Patient Name: RAGINI MENSAH Ultrasound Exam Date/Time 06/21/2019 14:09:59 EST Exam US Breast Limited Left Ordering Physician Víctor MURGUIA VICTORIA Accession Number [id number] CPT4 Codes 31627 () Reason For Exam subareolar US LEFT Report TIME SINCE LAST MAMMOGRAM: Last mammogram was performed 7 months ago. REASON FOR EXAM: clinical finding. INDICATED PROBLEM: Indicated problem(s): left breast non-bloody discharge (yellow) for 5 days discharge is also brownish PROCEDURE: MG BREAST TOMOSYNTHESIS LEFT: JUNE 21, 2019 - 2D/3D Procedure 3D views: CC and MLO view(s) were taken of the left breast. 2D views: CC, MLO, and MLO view(s) were taken of the left breast. Prior study comparison: November 09, 2018, bilateral MG breast tomosynthesis bl scr performed at [facility]. July 26, 2017, bilateral MG breast tomosynthesis bl scr performed at [facility]. June 04, 2015, bilateral MG mammogram digital diagnostic bilat performed at [facility]. March 28, 2013, bilateral MG mammogram digital diagnostic bilat performed at [facility]. TISSUE DENSITY: There are scattered fibroglandular densities. . FINDINGS: The patient is a 48-year-old who presents with left breast nipple discharge x5 days. A tissue marker is redemonstrated in the anterior third of the upper outer quadrant of the left breast. No discrete masses, parenchymal distortion or suspicious calcifications are seen. There is no skin thickening or nipple retraction. Ultrasound was performed. Targeted ultrasound in the subareolar region of the left breast demonstrates no obvious solid or cystic masses. There is no evidence of ductal dilatation. The background echogenicity is homogeneous. IMPRESSION: There are no imaging findings to explain the patient's nipple discharge. Further evaluation of nipple discharge should proceed based on clinical parameters. Markings on images: BB's = Nipples; skin lesions Open zuni = Palpable Line = Scar US BREAST LIMITED LEFT: JUNE 21, 2019 - Standard views. 2D digital mammography and tomosynthesis imaging were performed and reviewed with CAD. ASSESSMENT: Category 1 Negative (Overall) RECOMMENDATION: Clinical correlation for nipple discharge. Routine screening mammogram of both breasts in October 2019. . Report Dictated on Final Signed Date and Time: 06/21/2019 2:28 pm Signed by: MD LIVE LAUREN B [facility]2018 [facility] Surgical Pathology Department Name RAGINI MENSAH Pathologist: MARICEL PEPPERate of Procedure: 02/01/2018Date Received: 02/01/2018Date Reported 02/02/2018Submitting Physician: JOSÉ MIGUEL BURRIS MDLocation: APMISC Other External # [id number] FINAL DIAGNOSISA. COLON, RANDOM BIOPSIES:?COLONIC MUCOSA DEMONSTRATING FOCAL HISTOPATHOLOGICAL FEATURES CONSISTENT WITHPRIOR MUCOSAL INJURY, NO ACTIVE INFLAMMATION OR DYSPLASIA IDENTIFIED. Electronically Signed Out By LUL CHUNG MD/[facility] the signature on this report, the individual or group listed as making theFinal Interpretation/Diagnosis certifies that they have reviewed this case. Clinical History:CrohnsSpecimens Submitted As:A: RANDOM COLON BX Other Case Numbers [id number] Description:Received in formalin, labeled with the patient's name and hospital number andrandom colon biopsies , are multiple fragments of diego, soft tissueaggregating to 1.4 x 0.2 x 0.1 cm. The specimen is submitted in toto in onecassette.EXLexl/02/03/20 18 Normal [facility] Comment on above: Performed By: #### [facility] ####[facility] Surgical Pathology [id number] [facility] [address] Vital Signs Date Time Vital Sign Value Performing Clinician [facility] 11-13-2024 09:52-0400 Body height 167.6 cm Treva Sweet MD Work Phone: [facility] 11-13-2024 09:52-0400 Body mass index (BMI) [Ratio] 29.86 kg/m2 Treva Sweet MD Work Phone: [facility] 11-13-2024 09:52-0400 Body weight 83.92 kg Treva Sweet MD Work Phone: [facility] 11-13-2024 09:52-0400 Diastolic blood pressure 88 mm[Hg] Treva Sweet MD Work Phone: [facility] 11-13-2024 09:52-0400 Systolic blood pressure 122 mm[Hg] Treva Sweet MD Work Phone: [facility] 10-14-2024 14:39-0400 Body height 167.6 cm Emily Lowe Work Phone: [facility] 10-14-2024 14:39-0400 Body mass index (BMI) [Ratio] 29.86 kg/m2 Emily Lowe Work Phone: [facility] 10-14-2024 14:39-0400 Body weight 83.92 kg Emily Lowe Work Phone: [facility] 10-08-2024 13:01-0400 Diastolic blood pressure 77 mm[Hg] Katya Carolina PA-C Work Phone: [facility] 10-08-2024 13:01-0400 Heart rate 86 /min Katya Carolina PA-C Work Phone: [facility] 10-08-2024 13:01-0400 Systolic blood pressure 143 mm[Hg] Katya Carolina PA-C Work Phone: [facility] 10-07-2024 08:51-0400 Body mass index (BMI) [Ratio] 29.13 kg/m2 Treva Sweet MD Work Phone: [facility] 10-07-2024 08:51-0400 Body weight 81.87 kg Treva Sweet MD Work Phone: [facility] 10-07-2024 08:51-0400 Diastolic blood pressure 84 mm[Hg] Treva Sweet MD Work Phone: [facility] 10-07-2024 08:51-0400 Heart rate 89 /min Treva Sweet MD Work Phone: [facility] 10-07-2024 08:51-0400 Systolic blood pressure 154 mm[Hg] Treva Sweet MD Work Phone: [facility] 02-15-2024 09:53-0400 Body height 167.6 cm Brandon Singer MD Work Phone: [facility] 02-15-2024 09:53-0400 Body mass index (BMI) [Ratio] 28.89 kg/m2 Brandon Singer MD Work Phone: [facility] 02-15-2024 09:53-0400 Body weight 81.19 kg Brandon Singer MD Work Phone: [facility] 02-15-2024 09:53-0400 Diastolic blood pressure 81 mm[Hg] Brandon Singer MD Work Phone: [facility] 02-15-2024 09:53-0400 Systolic blood pressure 131 mm[Hg] Brandon Singer MD Work Phone: [facility] 01-30-2024 08:08-0400 Body height 167.6 cm Jesus Campos PA-C Work Phone: [facility] 01-30-2024 08:08-0400 Body mass index (BMI) [Ratio] 28.57 kg/m2 Jesus Campos PA-C Work Phone: [facility] 01-30-2024 08:08-0400 Body temperature 98.2 [degF] Jesus Campos PA-C Work Phone: [facility] 01-30-2024 08:08-0400 Body weight 80.29 kg Jesus Campos PA-C Work Phone: [facility] 01-30-2024 08:08-0400 Diastolic blood pressure 76 mm[Hg] Jesus Campos PA-C Work Phone: [facility] 01-30-2024 08:08-0400 Heart rate 94 /min Jesus Campos PA-C Work Phone: [facility] 01-30-2024 08:08-0400 Respiratory rate 14 /min Jesus Campos PA-C Work Phone: [facility] 01-30-2024 08:08-0400 SaO2% (BldA) [Mass fraction] 96 % Jesus Campos PA-C Work Phone: [facility] 01-30-2024 08:08-0400 Systolic blood pressure 132 mm[Hg] Jesus Campos PA-C Work Phone: [facility] 05-11-2023 11:35-0500 Body temperature 98 [degF] [facility] 05-11-2023 11:35-0500 Diastolic blood pressure 62 mm[Hg] [facility] 05-11-2023 11:35-0500 Heart rate 97 /min [facility] 05-11-2023 11:35-0500 Respiratory rate 18 /min [facility] 05-11-2023 11:35-0500 SaO2% (BldA) [Mass fraction] 96 % [facility] 05-11-2023 11:35-0500 Systolic blood pressure 143 mm[Hg] [facility] 05-11-2023 09:52-0500 Body height 167.64 cm [facility] 05-11-2023 09:52-0500 Body mass index (BMI) [Ratio] 28.2 kg/m2 [facility] 05-11-2023 09:52-0500 Body weight 79.37 kg [facility] 03-22-2023 13:05-0500 Body height 167.6 cm Celi Rojas MD Work Phone: [facility] 03-22-2023 13:05-0500 Body mass index (BMI) [Ratio] 28.89 kg/m2 Celi Rojas MD Work Phone: [facility] 03-22-2023 13:05-0500 Body temperature 97.81 [degF] Celi Rojas MD Work Phone: [facility] 03-22-2023 13:05-0500 Body weight 81.19 kg Celi Rojas MD Work Phone: [facility] 03-22-2023 13:05-0500 Diastolic blood pressure 77 mm[Hg] Celi Rojas MD Work Phone: [facility] 03-22-2023 13:05-0500 Heart rate 104 /min Celi Rojas MD Work Phone: [facility] Comment on above: patient states she h as tachycardia 03-22-2023 13:05-0500 Respiratory rate 12 /min Celi Rojas MD Work Phone: [facility] 03-22-2023 13:05-0500 Systolic blood pressure 125 mm[Hg] Celi Rojas MD Work Phone: [facility] 01-24-2023 14:13-0400 Body height 167.6 cm Jesus Hilloney PA-C Work Phone: [facility] 01-24-2023 14:13-0400 Body temperature 98.2 [degF] Jesus Campos PA-C Work Phone: [facility] 01-24-2023 14:13-0400 Body weight 83.55 kg Jesus Campos PA-C Work Phone: [facility] 01-24-2023 14:13-0400 Diastolic blood pressure 78 mm[Hg] Jesus Campos PA-C Work Phone: [facility] 01-24-2023 14:13-0400 Heart rate 118 /min Jesus Campos PA-C Work Phone: [facility] 01-24-2023 14:13-0400 Respiratory rate 14 /min Jesus Campos PA-C Work Phone: [facility] 01-24-2023 14:13-0400 SaO2% (BldA) [Mass fraction] 96 % Jesus Campos PA-C Work Phone: [facility] 01-24-2023 14:13-0400 Systolic blood pressure 132 mm[Hg] Jesus Campos PA-C Work Phone: [facility] 05-24-2019 08:07-0500 Body temperature 98.71 [degF] José Miguel Burris MD Work Phone: [facility] Work Phone: 05-24-2019 08:07-0500 Diastolic blood pressure 61 mm[Hg] José Miguel Burris MD Work Phone: [facility] Work Phone: 05-24-2019 08:07-0500 Heart rate 79 /min José Miguel Burris MD Work Phone: [facility] Work Phone: 05-24-2019 08:07-0500 Systolic blood pressure 135 mm[Hg] José Miguel Burris MD Work Phone: [facility] Work Phone: 04-26-2019 10:02-0500 Body temperature 98.6 [degF] José Miguel Burris MD Work Phone: [facility] Work Phone: 04-26-2019 10:02-0500 Diastolic blood pressure 71 mm[Hg] José Miguel Burris MD Work Phone: [facility] Work Phone: 04-26-2019 10:02-0500 Heart rate 76 /min José Miguel Burris MD Work Phone: [facility] Work Phone: 04-26-2019 10:02-0500 Respiratory rate 14 /min José Miguel Burris MD Work Phone: [facility] Work Phone: 04-26-2019 10:02-0500 Systolic blood pressure 110 mm[Hg] José Miguel Burris MD Work Phone: [facility] Work Phone: 04-12-2019 08:06-0500 Body temperature 97.81 [degF] José Miguel Burris MD Work Phone: [facility] Work Phone: 04-12-2019 08:06-0500 Diastolic blood pressure 65 mm[Hg] José Miguel Burris MD Work Phone: [facility] Work Phone: 04-12-2019 08:06-0500 Heart rate 85 /min José Miguel Burris MD [facility]: [facility] Work Phone: 04-12-2019 08:06-0500 Systolic blood pressure 113 mm[Hg] José Miguel Burris MD Work Phone: [facility] Work Phone: 03-29-2019 08:06-0500 Body Temperature 98.29 [degF] [facility] [place] [place] 03-29-2019 08:06-0500 BP Diastolic 71 mm[Hg] [facility] [place] [facility] [place] 03-29-2019 08:06-0500 BP Systolic 125 mm[Hg] José Miguel [facility] [place] [facility] [place] 03-29-2019 08:06-0500 Pulse (Heart Rate) 86 /min José Miguel [facility] [place] 03-15-2019 08:17-0500 Body Temperature 98.01 [degF] [facility] [place] [place] 03-15-2019 08:17-0500 BP Diastolic 72 mm[Hg] [facility] [place] [facility] [place] 03-15-2019 08:17-0500 BP Systolic 122 mm[Hg] José Miguel [facility] [place] [facility] [place] 03-15-2019 08:17-0500 Pulse (Heart Rate) 89 /min José Miguel [facility] [place] 03-01-2019 08:05-0500 Body Temperature 98.01 [degF] José Miguel Burris [facility] [place] 03-01-2019 08:05-0500 BP Diastolic 61 mm[Hg] José Miguel Burris [facility] [place] , [place] 03-01-2019 08:05-0500 BP Systolic 114 mm[Hg] José Miguel Burris [facility] , [place] 03-01-2019 08:05-0500 Pulse (Heart Rate) 91 /min José Miguel [facility] [place] 03-01-2019 08:05-0500 Respiratory Rate 18 /min José Miguel Burris [facility] [place] 02-15-2019 08:12-0400 Body Temperature 99.61 [degF] José Miguel Burris [facility] [place] 02-15-2019 08:12-0400 BP Diastolic 70 mm[Hg] [facility] [place] [place] 02-15-2019 08:12-0400 BP Systolic 118 mm[Hg] [facility] [place] [facility] [place] 02-15-2019 08:12-0400 Pulse (Heart Rate) 90 /min José Miguel Burris [facility] [place] 02-15-2019 08:12-0400 Respiratory Rate 16 /min [facility] [place] 02-01-2019 07:56-0400 Body Temperature 98.2 [degF] José Miguel Burris [facility] [place] 02-01-2019 07:56-0400 BP Diastolic 70 mm[Hg] [facility] [place] 02-01-2019 07:56-0400 BP Systolic 124 mm[Hg] [facility] [place] 02-01-2019 07:56-0400 Pulse (Heart Rate) 95 /min [facility] [place] [place] 02-01-2019 07:56-0400 Respiratory Rate 18 /min [facility] [place] 01-04-2019 08:04-0400 Body Temperature 98.2 [degF] José Miguel Burris [facility] [place] 01-04-2019 08:04-0400 BP Diastolic 72 mm[Hg] [facility] [place] 01-04-2019 08:04-0400 BP Systolic 134 mm[Hg] [facility] [place] 01-04-2019 08:04-0400 Pulse (Heart Rate) 85 /min [facility] [place] NEGATED: Highlighted [id number] 08:02-0500 BMI (Body Mass Index) 27.38 kg/m2 Kiley Wilkinson [facility] Work Phone: NEGATED: Highlighted [id number] 08:02-0500 Body weight 76.66 kg Kiley Wilkinson [facility] Work Phone: NEGATED: Highlighted [id number] 08:02-0500 Body weight 77 kg Kiley Wilkinson [facility] Work Phone: NEGATED: Highlighted [id number] 08:02-0500 Height 167.64 cm Kiley Wilkinson [facility] Work Phone: NEGATED: Highlighted [id number] 08:02-0500 Height 168 cm Kiley Wilkinson [facility] Work Phone: Encounters Encounter Date Encounter Type Care Provider Facility Start: 11-26-2024 ambulatory [facility] Facility: [facility] Start: 11-13-2024 End: 11-13-2024 Office outpatient new 45 minutes Treva Sweet MD Work Phone: [facility] Neurology [facility] Comment on above: Numbness and tinglin g (Primary Dx); Dizziness Start: 11-13-2024 End: 11-13-2024 ambulatory EMILY LOWE [facility] Start: 10-28-2024 End: 10-28-2024 Subsequent hospital visit by physician Treva Sweet MD Work Phone: [facility] Comment on above: Numbness Start: 10-28-2024 End: 10-28-2024 ambulatory TREVA SWEET [facility] Start: 10-14-2024 End: 10-14-2024 Subsequent hospital visit by physician Emily Lowe Work Phone: [facility] Comment on above: Encounter for screen ing mammogram for malignant neoplasm of breast Start: 10-14-2024 End: 10-14-2024 ambulatory EMILY MYNOR [facility] Start: 10-11-2024 End: 10-11-2024 Subsequent hospital visit by physician Treva Sweet MD Work Phone: [facility] Comment on above: Numbness Start: 10-11-2024 End: 10-11-2024 ambulatory TREVA SWEET [facility] Start: 10-08-2024 End: 10-08-2024 Office outpatient visit 15 minutes Katya Figueroa PA-C Work Phone: [facility] Dermatology [facility] Comment on above: Multiple benign nilay nocytic nevi of both upper extremities, both lower extremities, and trunk (Primary Dx); Solar lentigo; Seborrheic keratosis; Schmidt angioma; Pilar cyst; Lipoma of left upper extremity; Keratosis pilaris Start: 10-08-2024 End: 10-08-2024 ambulatory EMILY MYNOR [facility] Start: 10-07-2024 End: 10-14-2024 Telephone encounter Treva Sweet MD Work Phone: [facility] Central Scheduling Comment on above: Other Start: 10-07-2024 End: 10-07-2024 Office outpatient new 45 minutes Treva Sweet MD Work Phone: [facility] Neurology [facility] Comment on above: Numbness (Primary Dx ) Start: 10-07-2024 End: 10-07-2024 ambulatory EMILY MYNOR [facility] Start: 10-04-2024 End: 10-04-2024 [facility]ulatory [facility] Start: 09-22-2024 ambulatory ELEAZAR BUSH [employer]~[id number] [facility] Start: 08-26-2024 End: 09-21-2024 ambulatory ELEAZAR BUSH [employer]~[id number] [facility] Start: 07-01-2024 End: 07-01-2024 ambulatory EMILY Petty [facility] Start: 03-11-2024 End: 03-11-2024 ambulatory EMILY LOWE [facility] Start: 03-06-2024 End: 03-06-2024 Office outpatient new 45 minutes Radha Morgan PA-C Work Phone: [facility] Dermatology - [place] Comment on above: Xerosis cutis (Prima ry Dx); Seborrheic keratosis; Skin tags, multiple acquired; Multiple benign melanocytic nevi of both upper extremities, both lower extremities, and trunk; Dermatofibroma Start: 03-06-2024 End: 03-06-2024 ambulatory EMILY [facility] Start: 02-15-2024 End: 02-15-2024 Office outpatient new 30 minutes Brandon Singer MD Work Phone: [facility] Orthopedics and Sports Medicine - [place] Comment on above: Right hand pain; Dupuytren contracture of right hand Start: 02-15-2024 End: 02-15-2024 ambulatory EMILY LOWE [facility] Start: 02-09-2024 End: 02-09-2024 Subsequent hospital visit by physician Emily Lowe Work Phone: [facility] Comment on above: Malignant neoplasm o f unspecified site of unspecified female breast (HCC) Start: 02-09-2024 End: 02-09-2024 ambulatory EMILY MYNOR [facility] Start: 02-07-2024 End: 05-08-2024 Transcribe Orders Emily Lowe Work Phone: [facility] Central Scheduling Comment on above: Malignant neoplasm o f unspecified site of unspecified female breast (HCC) (Primary Dx) Start: 02-02-2024 End: 02-06-2024 Telephone encounter Jesus Campos PA-C Work Phone: Urology Comment on above: Results; Orders Start: 01-30-2024 End: 01-30-2024 ambulatory JESUS Porter:[facility] Start: 01-30-2024 End: 01-30-2024 Patient encounter procedure Jesus Campos PA-C Work Phone: Urology Comment on above: Urine retention (Kori martín Dx); H/O urethral stricture; Screening for genitourinary condition Start: 01-08-2024 End: 01-08-2024 ambulatory [facility] Start: 12-18-2023 End: 12-18-2023 ambulatory EMILY LOWE [facility] Start: 12-14-2023 End: 12-14-2023 ambulatory EMILY LOWE 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; Abnormal mammogram of right breast; Breast asymmetry Start: 06-08-2023 End: 06-08-2023 Subsequent hospital visit by physician [facility] Work Phone: Radiology Comment on above: Urine retention [R33 .9] Start: 05-11-2023 End: 05-11-2023 ambulatory [facility] Work Phone: Start: 05-11-2023 End: 05-11-2023 Patient encounter procedure [facility] - [facility] Work Phone: Start: 03-22-2023 Telephone encounter Celi Coon MD Work Phone: [facility] General Surgery Comment on above: Breast imaging disc from [facility] Start: 03-22-2023 End: 03-22-2023 Office outpatient visit 15 minutes Celi Rojas MD Work Phone: [facility] Comment on above: Breast asymmetry (Pr imary Dx); History of ductal carcinoma in situ (DCIS) of breast; Abnormal mammogram of right breast Start: 03-20-2023 Telephone encounter Jesus smith PA-C Work Phone: Urology Comment on above: Patient Update (Poss ible UTI); Orders Start: 01-24-2023 End: 01-24-2023 Patient encounter procedure Jesus Campos PA-C Work Phone: Urology Comment on above: Urine retention (Kori martín Dx); H/O urethral stricture; Renal cyst Start: 10-06-2020 End: 10-06-2020 Subsequent hospital visit by physician Brandy Carlos MD Work Phone: [facility] Start: 03-13-2020 End: 03-13-2020 Patient encounter procedure Dallas Samano MD Work Phone: [facility] Work Phone: Start: 02-14-2020 End: 02-14-2020 Subsequent hospital visit by physician Marilu Murphy Work Phone: [facility] Comment on above: Arrived Start: 09-05-2019 End: 09-05-2019 Subsequent hospital visit by physician Brandy Carlos Work Phone: [facility] Start: 06-21-2019 End: 06-21-2019 Subsequent hospital visit by physician Celi Rojas Work Phone: [facility] Comment on above: Discharge from left nipple Start: 05-24-2019 End: 05-24-2019 Subsequent hospital visit by physician Jsoé Miguel Burris MD Work Phone: [facility] Comment on above: Short bowel syndrome (Primary Dx) Start: 04-26-2019 End: 04-26-2019 Subsequent hospital visit by physician José Miguel Burris MD Work Phone: [facility] Comment on above: Short bowel syndrome (Primary Dx) Start: 04-12-2019 End: 04-12-2019 Subsequent hospital visit by physician José Miguel Burris MD Work Phone: [facility] Comment on above: Crohn's disease of b oth small and large intestine with intestinal obstruction (HCC) (Primary Dx); Short bowel syndrome Start: 03-29-2019 End: 03-29-2019 Subsequent hospital visit by physician José Miguel Burris Work Phone: [facility] Comment on above: Short bowel syndrome (Primary Dx) Start: 03-15-2019 End: 03-15-2019 Subsequent hospital visit by physician José Miguel Dayton Work Phone: [facility] Comment on above: Short bowel syndrome (Primary Dx) Start: 03-01-2019 End: 03-01-2019 Subsequent hospital visit by physician José Miguel Dayton Work Phone: [facility] Comment on above: Short bowel syndrome (Primary Dx) Start: 02-15-2019 End: 02-15-2019 Subsequent hospital visit by physician José Miguel Burris Work Phone: [facility] Comment on above: Crohn's disease of b oth small and large intestine with intestinal obstruction (HCC) (Primary Dx); Short bowel syndrome Start: 02-01-2019 End: 02-01-2019 Subsequent hospital visit by physician José Miguel Burris Work Phone: [facility] Comment on above: Short bowel syndrome (Primary Dx) Start: 01-04-2019 End: 01-04-2019 Subsequent hospital visit by physician José Miguel Burris Work Phone: [facility] Comment on above: Short bowel syndrome (Primary Dx) Start: 12-21-2018 End: 12-21-2018 Subsequent hospital visit by physician José Miguel Burris Work Phone: [facility] Comment on above: Crohn's disease of b oth small and large intestine with intestinal obstruction (HCC) (Primary Dx); Short bowel syndrome Arrived Start: 02-02-2018 Patient encounter José Miguel baker Facility:[facility] Procedures Date Procedure Procedure Detail Performing Clinician Start: 11-13-2024 Follow-up visit Follow-up TREVA WALLS Start: 10-14-2024 Assay of gammaglobul in iga igd igg igm each Treva Sweet MD Work Phone: Start: 10-14-2024 End: 10-14-2024 Gema Lowe Work Phone: Start: 07-01-2024 Urinalysis EMILY PAYNE Comment on above: Result Comment: URIN ALYSIS Performed By: #### 2 [id number] #### Jovanny [facility],[address] [address] Start: 02-09-2024 Dxa bone density molina dy 1/> sites axial skel Emily Lowe Work Phone: Start: 01-30-2024 Urnls dip stick/tabl et rgnt auto w/o microscopy [employer] PA-C Work Phone: Start: 09-20-2023 End: 09-20-2023 Diagnostic mammography computer-aided detcj bi Celi Rojas MD Work Phone: Start: 06-08-2023 Us retroperitoneal r eal time w/image complete Jesus Campos PA-C Work Phone: Start: 05-11-2023 MRI of small intestine Start: 01-24-2023 Urnls dip stick/tabl et rgnt auto w/o microscopy [employer] PA-C Work Phone: Start: 03-13-2020 End: 03-13-2020 [...] Treatment Date Care Activity Detail Author Start: 2045 RSV Immunization for Adults (1 - 1-dose 75+ series) RSV Immunization for Adults (1 - 1-dose 75+ series) [facility] Start: 2030 RSV Immunization aged 60 or older (1 - 1-dose 60+ series) RSV Immunization aged 60 or older (1 - 1-dose 60+ series) [facility] Start: 02-01-2026 Diabetes Screening Diabetes Screening [facility] Start: 10-14-2025 Diabetes: Estimated Glomerular Filtration Rate for Kidney Health Diabetes: Estimated Glomerular Filtration Rate for Kidney Health [facility] Start: 10-14-2025 Hemoglobin A1c measurement Diabetes: Hemoglobin A1C [facility] Start: 10-14-2025 Screening for malignant neoplasm of breast Mammogram [facility] Start: 10-09-2025 End: 10-09-2025 Patient encounter procedure 10/09/2025 1:00 PM EDT Office Visit [facility] Dermatology - [place] [address] [facility] [place] [address] [place] [address] Katya Figueroa PA-C [address] [facility] [place] [address] [place], [place] [id number] [facility] - [place] Start: 04-08-2025 Depression Monitoring Depression Monitoring [facility] Start: 02-04-2025 End: 02-04-2025 Patient encounter procedure 02/04/2025 8:00 AM EDT Office Visit Urology [address] [place] [address] Jesus Campos PA-C [address] [place], [place] [id number] 1 YR F/U Urology Comment on above: 1 YR F/U Start: 12-23-2024 Influenza vaccination [facility] Start: 11-13-2024 End: 11-13-2024 Patient encounter procedure 11/13/2024 10:00 AM EDT Office Visit [facility] Neurology [facility] [address] [place] [address] [place] [phone] Treva Sweet MD [address] [facility] [place], [place] [id number] [facility] Neurology [place] Start: 10-28-2024 End: 10-28-2024 Patient encounter procedure 10/28/2024 6:30 AM EDT Appointment [facility] [address] [place] [phone] Treva Sweet MD [address] [facility] [address] [place], [place] [address] [facility] [address] Start: 10-14-2024 End: 10-14-2024 Patient encounter procedure 10/14/2024 2:30 PM EDT Appointment [facility] [address] [place] [address] Emily Lowe [address] [facility] [address] [place] [address] [facility] Start: 10-11-2024 End: 10-11-2024 Patient encounter procedure 10/11/2024 1:30 PM EDT Appointment [facility] [address] [place] [phone] Treva Sweet MD [address] [place] [address] [facility] Start: 10-08-2024 End: 10-08-2024 Patient encounter procedure [facility] - [place] Start: 10-07-2024 End: 10-07-2025 C reactive protein [Mass/volume] in Serum or Plasma C-reactive protein Lab Routine Numbness Expected: 10/07/2024 (Approximate), Expires: 10/07/2025 [facility] Comment on above: Expected: 10/07/2024 (Approximate), Expi res: 10/07/2025 Start: 10-07-2024 End: 10-07-2025 Cobalamin (Vitamin B12) [Mass/volume] in Serum or Plasma Vitamin B12 Lab Routine Numbness Expected: 10/07/2024 (Approximate), Expires: 10/07/2025 [facility] Comment on above: Expected: 10/07/2024 (Approximate), Expi res: 10/07/2025 Start: 10-07-2024 End: 10-07-2025 Comprehensive metabolic 1998 panel - Serum or Plasma Comprehensive metabolic panel Lab Routine Numbness Expected: 10/07/2024 (Approximate), Expires: 10/07/2025 [facility] Comment on above: Expected: 10/07/2024 (Approximate), Expi res: 10/07/2025 Start: 10-07-2024 End: 10-07-2025 Erythrocyte sedimentation rate Sedimentation rate, automated Lab Routine Numbness Expected: 10/07/2024 (Approximate), Expires: 10/07/2025 [facility] Comment on above: Expected: 10/07/2024 (Approximate), Expi res: 10/07/2025 Start: 10-07-2024 End: 10-07-2025 Hemoglobin A1c measurement Hemoglobin A1c Lab Routine Numbness Expected: 10/07/2024 (Approximate), Expires: 10/07/2025 [facility] Work Phone: Comment on above: Expected: 10/07/2024 (Approximate), Expi res: 10/07/2025 Start: 10-07-2024 End: 10-07-2025 Hepatitis B virus core IgM Ab [Presence] in Serum or Plasma by Immunoassay Hepatitis B core antibody, IgM Lab Routine Numbness Expected: 10/07/2024 (Approximate), Expires: 10/07/2025 [facility] Actual Experience Comment on above: Expected: 10/07/2024 (Approximate), Expi res: 10/07/2025 Start: 10-07-2024 End: 10-07-2025 Immunofixation Electrophoresis [facility] Actual Experience Comment on above: Expected: 10/07/2024 (Approximate), Expi res: 10/07/2025 Start: 10-07-2024 End: 10-07-2025 MR Brain WO contrast MR brain wo contrast Imaging Routine Numbness Expected: 10/07/2024, Expires: 10/07/2025 [facility] Actual Experience Comment on above: Expected: 10/07/2024, Expires: Start: 10-07-2024 End: 12-07-2024 NERVE CONDUCTION TEST WITH EMG NERVE CONDUCTION TEST WITH [facility] Neurology Routine Numbness Expected: 10/07/2024 (Approximate), Expires: 12/07/2024 [facility] Comment on above: Expected: 10/07/2024 (Approximate), Expi res: 12/07/2024 Start: 10-07-2024 End: 10-07-2025 Nuclear Ab [Titer] in Serum by Immunofluorescence JAMES Lab Routine Numbness Expected: 10/07/2024 (Approximate), Expires: 10/07/2025 [facility] Actual Experience Comment on above: Expected: 10/07/2024 (Approximate), Expi res: 10/07/2025 Start: 09-19-2024 Screening for malignant neoplasm of breast [facility] Start: 03-06-2024 End: 03-06-2024 Patient encounter procedure 03/06/2024 9:00 AM EST Office Visit [facility] Dermatology - [place] [address] [facility] [place] [address] [place] [phone] Radha Morgan PA-C [address] [facility] [place] [address] [place] [address] [facility]atology - [place] Start: 02-15-2024 End: 02-15-2024 Patient encounter procedure 02/15/2024 10:00 AM EDT Office Visit [facility] [address] [facility] [place] [address] [place] [phone] Brandon Singer MD 1 [facility] [place] [address] [place], [place] [address] [facility]oped[facility] [place] Start: 02-02-2024 Hemoglobin A1c measurement Diabetes: Hemoglobin A1C [facility] Start: 12-24-2023 COVID-19 Vaccine ( season) COVID-19 Vaccine () [facility] Start: 12-24-2023 COVID-19 Vaccine () COVID-19 Vaccine () [facility] Start: 12-24-2023 Influenza vaccination [facility] Start: 09-20-2023 End: 05-22-2024 DBT Breast - right diagnostic Right diagnostic mammogram with tomosynthesis Imaging Routine History of ductal carcinoma in situ (DCIS) of breast Abnormal mammogram of right breast Breast asymmetry Expected: 09/20/2023, Expires: 05/22/2024 [facility] Work Phone: Comment on above: Expected: 09/20/2023, Expires: Start: 09-20-2023 End: 09-20-2023 Patient encounter procedure 09/20/2023 9:00 AM EDT Appointment [facility] [address] [facility] [place] [address] [facility] Start: 05-11-2023 Following clinical pathway protocol [facility] Start: 05-11-2023 Venous catheter care management [facility] Start: 04-24-2023 Depression Assessment Depression Assessment [facility] Start: 04-13-2023 Lipid 1996 panel - Serum or Plasma Lipid Screening [facility] Start: 04-13-2023 Lipid panel Lipid Screening [facility] Start: 04-13-2023 Lipid screen Lipid screen [place], [place] Start: 03-20-2023 End: 06-19-2023 Bacteria identified in Urine by Culture [facility] Work Phone: Comment on above: Expected: 03/20/2023 (Approximate), Expi res: 06/19/2023 Start: 02-24-2023 End: 02-23-2024 US KIDNEY/BLADDER US KIDNEY/BLADDER Radiology Routine Urine retention Expected: 02/24/2023 (Approximate), Expires: 02/23/2024 [facility] Work Phone: Comment on above: Expected: 02/24/2023 (Approximate), Expi res: 02/23/2024 Start: 12-23-2022 COVID-19 Vaccine ( season) COVID-19 Vaccine ( season) [facility] Start: 12-23-2022 Influenza vaccination Influenza Vaccine (#1) [facility] Start: 04-24-2022 Depression Assessment Depression Assessment [facility] Start: 05-10-2021 Cervical cancer screen Cervical cancer screen [place], [place] Start: 05-10-2021 Screening for malignant neoplasm of cervix Cervical cancer screen [place], [place] Start: 02-13-2021 Screening for malignant neoplasm of breast [facility] Start: 02-05-2021 End: 02-05-2021 Office Visit 02/05/2021 Office Visit Breast Clinic / Breast Center Marilu Murphy, MFT - [employer] [address] [place] [address] [phone] [facility] [place] Start: 12-23-2020 Influenza vaccination Flu vaccine (Season Ended) [facility] Work Phone: Start: 10-07-2020 End: 10-07-2020 Patient encounter procedure 10/07/2020 Office Visit Hematology and Oncology Tiffanie Savage MD [address] [facility] [address] [place] [address] [phone] [facility] [place] Start: 07-23-2020 End: 07-23-2020 Office Visit 07/23/2020 Office Visit Hematology and Oncology Tiffanie Savage MD [address] [facility] [address] [place] [address] [phone] [facility] [place] Start: 2020 Pneumococcal Vaccine: 50+ Years (1 of 1 - PCV) Pneumococcal Vaccine: 50+ Years (1 of 1 - PCV) [facility] Start: 2020 Screening for malignant neoplasm of colon Colon cancer screen colonoscopy [facility] Work Phone: Start: 2020 Shingles Vaccine (1 of 2) Shingles Vaccine (1 of 2) [place], [place] Start: 2020 Zoster Vaccines (1 of 2) Zoster Vaccines (1 of 2) [facility] Start: 06-21-2020 Screening for malignant neoplasm of breast Breast cancer screen [place], [place] Start: 03-13-2020 End: 03-13-2020 Appointment Appointment [facility] Work Phone: Start: 03-13-2020 End: 03-13-2020 Radex shoulder complete minimum 2 views XR SHOULDER 4 VWS-RT [facility] Work Phone: Start: 12-24-2019 Influenza vaccination [place], [place] Start: 11-10-2019 Breast cancer screen Breast cancer screen [place], [place] Start: 10-04-2019 End: 10-04-2019 Office Visit 10/04/2019 Office Visit Breast Clinic / Breast Center Marilu Murphy, MFT - [employer] [address] [facility] [address] [place] [address] [phone] [facility] [place] Start: 07-22-2019 DTaP/Tdap/Td vaccine (2 - Td or Tdap) DTaP/Tdap/Td vaccine (2 - Td or Tdap) [facility] Work Phone: Start: 07-22-2019 DTaP/Tdap/Td vaccine (2 - Td) DTaP/Tdap/Td vaccine (2 - Td) [place], [place] Start: 06-03-2019 End: 06-03-2019 Office Visit 06/03/2019 Office Visit Hematology and Oncology Tiffanie Savage MD [address] [address] [phone] [facility] [place] Start: 05-10-2019 End: 05-10-2019 Patient encounter procedure 05/10/2019 Appointment Infusion Therapy [facility] Start: 04-13-2019 [facility] Start: 04-13-2019 Lipid screen [facility] screen [facility] Start: 04-12-2019 End: 04-12-2019 Appointment 04/12/2019 Appointment Infusion Therapy [facility] Start: 03-29-2019 End: 03-29-2019 Appointment 03/29/2019 Appointment Infusion Therapy [facility] Start: 03-15-2019 End: 03-15-2019 Appointment 03/15/2019 Appointment Infusion Therapy [facility] Start: 03-01-2019 End: 03-01-2019 Appointment 03/01/2019 Appointment Infusion Therapy [facility] Start: 02-15-2019 End: 02-15-2019 Appointment 02/15/2019 Appointment Infusion Therapy [facility] Start: 12-23-2018 Influenza vaccination Flu vaccine (#1) [facility] Start: 07-19-2015 Cologuard (FIT-DNA) Cologuard (FIT-DNA) [facility] Start: 07-19-2015 Colonoscopy Colonoscopy [facility] Start: 07-19-2015 Colorectal Cancer Screening Colorectal Cancer Screening [facility] Start: 07-19-[address] COLONOGRAPHY [facility] Start: 07-19-2015 Diabetes Screening Diabetes Screening [facility] Start: 07-19-2015 Fecal Occult Blood Fecal Occult Blood [facility] Start: 07-19-2015 Lipid 1996 panel - Serum or Plasma Lipid Screening [facility] Start: 07-19-2015 Screening for malignant neoplasm of colon [facility] Start: 07-19-2015 SIGMOIDOSCOPY SIGMOIDOSCOPY [facility] Start: 2010 Diabetes screen [facility] screen [facility] Start: 2010 Mammography Mammogram Screening [facility] Start: 2010 Screening for malignant neoplasm of breast Mammogram Screening [facility] Start: 2000 HPV Testing HPV Testing [facility] Start: 2000 Screening for malignant neoplasm of cervix [facility] Start: 07-19-1991 Pap Testing Pap Testing [facility] Start: 07-19-1991 Screening for malignant neoplasm of cervix [facility] Start: 05-22-1990 Hepatitis B Vaccine (2 of 3 - 19+ 3-dose series) Hepatitis B Vaccine (2 of 3 - 19+ 3-dose series) [facility] Start: 05-22-1990 Hepatitis B Vaccine (2 of 3 - Risk 3-dose series) Hepatitis B Vaccine (2 of 3 - Risk 3-dose series) [facility] Start: 05-22-1990 Hepatitis B Vaccines (2 of 3 - 19+ 3-dose series) Hepatitis B Vaccines (2 of 3 - 19+ 3-dose series) [facility] Start: 1989 DTaP/Tdap/Td vaccine (1 - Tdap) DTaP/Tdap/Td vaccine (1 - Tdap) [place], [place] Start: 1989 DTaP/Tdap/Td Vaccines (1 - Tdap) DTaP/Tdap/Td Vaccines (1 - Tdap) [facility] Start: 1989 Hepatitis A Vaccine (1 of 2 - Risk 2-dose series) Hepatitis A Vaccine (1 of 2 - Risk 2-dose series) [facility] Start: 1989 Shingrix Vaccine (1 of 2) Shingrix Vaccine (1 of 2) [facility] Start: 1989 Urine microalbumin profile DTaP,Tdap,Td Vaccine (1 - Tdap) [facility] Start: 1988 Anxiety Screening Anxiety Screening [facility] Start: 1988 Depression Screening Depression Screening [facility] Start: 1988 Diabetes: Estimated Glomerular Filtration Rate for Kidney Health Diabetes: Estimated Glomerular Filtration Rate for Kidney Health [facility] Start: 1988 Diabetes: Urine Albumin-Creatinine Ratio for Kidney Health Diabetes: Urine Albumin-Creatinine Ratio for Kidney Health [facility] Start: 1988 Hepatitis C Screening Hepatitis C Screening [facility] Start: 1988 Hepatitis C screening Hepatitis C Screening [facility] Start: 1988 HIV Screening HIV Screening [facility] Start: 1988 HIV screening HIV Screening [facility] Start: 1988 MMR Vaccine (1 of 2 - Risk 2-dose series) MMR Vaccine (1 of 2 - Risk 2-dose series) [facility] Start: 1985 HIV screen HIV screen [place], [place] Start: 1985 HIV screening HIV screen [place] Start: 1982 COVID-19 Vaccine (1) COVID-19 Vaccine (1) [facility] Work Phone: Start: 1982 Depression Monitoring Depression Monitoring [facility] Start: 1982 Depression Screening Depression Screening [facility] Start: 1981 DTaP/Tdap/Td vaccine (1 - Tdap) DTaP/Tdap/Td vaccine (1 - Tdap) [place] Start: 1981 Screening for malignant neoplasm of cervix Cervical Cancer Screening [facility] Start: 1980 Diabetic foot examination Diabetes: Foot Exam [facility] Start: 1980 Glaucoma screening Diabetes: Retinopathy Screening [facility] Start: 1980 Meningococcal B Vaccine: Consider Based On Risk (1 of 4 - Increased Risk) Meningococcal B Vaccine: Consider Based On Risk (1 of 4 - Increased Risk) [facility] Start: 1980 Preventive dental service Diabetes: Dental Exam [facility] Start: 1976 [facility]neumococcal [facility] Start: 07-19-1975 Covid-19 Vaccine (#1) Covid-19 Vaccine (#1) [facility] Start: 07-19-1971 MMR Vaccines (1 of 1 - Standard series) MMR Vaccines (1 of 1 - Standard series) [facility] Start: 01-18-1971 COVID-19 Vaccine (#1) COVID-19 Vaccine (#1) [facility] Start: 1970 Hepatitis B Vaccine (1 of 3 - 3-dose series) Hepatitis B Vaccine (1 of 3 - 3-dose series) [facility] Start: 1970 Hepatitis B Vaccines (1 of 3 - 3-dose series) Hepatitis B Vaccines (1 of 3 - 3-dose series) [facility] Start: 1970 Hepatitis C screening Hepatitis C screen [facility] Work Phone: Start: 1970 HIV screening HIV Screening [facility] Start: 1970 Lipid panel Lipid Panel [facility] Bacteria identified in Urine by Culture URINE CULTURE Microbiology Routine Urine retention Ordered: 01/30/2024 [facility] Comment on above: Ordered: 01/30/2024 IgG, IgA, IgM IgG, IgA, IgM La b Routine Numbness Ordered: 10/07/2024 [facility] Actual Experience Comment on above: Ordered: 10/07/2024 Immunofixation Electrophoresis [facility] Actual Experience Comment on above: Ordered: 10/07/2024 End: 10-28-2024 MR Brain WO contrast [employer] Work Phone: Comment on above: Once for 1 Occurrences starting 10/29/19 until 10/28/2024 End: 10-11-2024 NERVE CONDUCTION TEST WITH EMG [employer] Work Phone: Comment on above: Once for 1 Occurrences starting 10/12/19 until 10/11/2024 Patient referral [facility] Work Phone: POST VOID RESIDUAL POST VOID RES IDUAL Procedures Routine Urine retention Ordered: 01/24/2023 [facility] Work Phone: Comment on above: Ordered: 01/24/2023 POST VOID RESIDUAL POST VOID RES IDUAL Procedures Routine Urine retention H/O urethral stricture Screening for genitourinary condition Ordered: 01/30/2024 [facility] Work Phone: Comment on above: Ordered: 01/30/2024 End: 02-14-2020 Screening digital breast tomosynthesis bi Wilfredo Fransico Digital Screen Bilateral Imaging Routine Once for 1 Occurrences starting 02/14/2020 until 02/14/2020 [facility] Comment on above: Once for 1 Occurrences starting 02/14/20 until 02/14/2020 Screening digital br east tomosynthesis bi Wilfredo Fransico Digital Screen Bilateral Imaging Routine 02/14/2020 2:25 PM EDT [facility] [place] SJOGREN'S ANTIBODIES (SS-A,SS-B) ([facility]) Sjogren's Antibodies (SS-A,SS-B) ([facility]) Lab Routine Numbness Ordered: 10/07/2024 [facility] Comment on above: Ordered: 10/07/2024 [facility] Immunizations Immunization Date Immunization Notes Care Provider Fa cili 01-23-2020 influenza virus vacc ine, unspecified formulation Jesus Campos PA-C Work Phone: [place] [id number] influenza virus vacc ine, unspecified formulation Celi Rojas MD Work Phone: [facility] Payers Date Payer Category Payer Self-pay 2022 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 2018 Unknown [facility] xxxxxxxxxxx 2018-Present [phone] [address] [place] [address] xxxxxxxxxxx [id number] 2018 Unknown [facility] [id number] 2018-Present [phone] [address] [place] [address] [id number] 2016 Private Health Insurance [id number] 2016 Private Health Insurance [employer] xxxxxxxxxx 2016-Present [phone] [address] [place] [address] xxxxxxxxxx [id number] 1970 Unknown [id number] 1970 Unknown [id number] 1970 Unknown [id number] 1970 Unknown [id number] 1970 Unknown [id number] 1970 Unknown [id number] 1970 Unknown [id number] 1970 Unknown [id number] 1970 Unknown [id number] 1959 Unknown [id number] 1959 Unknown [id number] 1959 Unknown [id number] Unknown [id number] Unknown [id number] Social History Date Type Detail Facility Start: 09-28-2018 End: 10-14-2024 Tobacco smoking status NHIS Former smoker [facility] Start: 01-25-1993 End: 01-25-2018 History of tobacco use Current smoker [place] Start: 09-28-2018 End: 10-07-2024 Cigarettes smoked current (pack per day) - Reported [facility] Start: 09-28-2018 End: 10-07-2024 Alcohol intake No [facility] Start: 03-04-2015 Alcohol Comment caffeine use 2 -3 cups of coffee or pop [place], [place] Start: 1970 Sex Assigned At Not on file [place], [place] Start: 09-28-2018 End: 10-14-2024 Alcohol intake Current non-drinker of alcohol (finding) [place] Start: 02-05-2020 End: 10-14-2024 Tobacco use and exposure Never used [place], [place] Exposure to SARS-CoV-2 (event) Not sure [facility] Start: 03-13-2020 End: 03-13-2020 Assertion Unknown if ever smoked [facility] Work Phone: Start: 01-25-1993 End: 01-25-2018 History of tobacco use Cigarette Smoker [facility] Start: 01-24-2023 End: 01-30-2024 Alcohol intake Ex-drinker (finding) [facility] Start: 1970 Sex Assigned At Female C [facility] Start: 01-18-2023 Gender identity Identifies as female gender (finding) [facility] Start: 01-18-2023 Sexual orientation Heterosexual (fin ding) [facility] History of tobacco use Passive smoker [facility] Start: 11-22-2021 Sex Female (finding) [facility] NEGATED: Highlighted rowStart: 03-13-2020 End: 03-13-2020 Employment detail Employment detail [facility] Work Phone: Medical Equipment Procedure Code Equipment Code Equipment Origin al Text Equipment Identifier Dates Start: 12-14-2023 End: 10-07-2024 Functional Status Date Assessment Result Facility 10-07-2024 Patient Health Questionnaire 2 item (PHQ- 2) [Reported] [facility] Mental Status Date Assessment Result Facility 05-11-2023 Cognitive function Voice/Name [facility] Work Phone: Clinical Notes 01-24-2023 to 11-13-2024 Treva Sweet MD - 11/13/2024 10:00 AM EDTTelephone Encounter - Ghislaine Blount - 10/08/2024 1:38 PM EDTTelephone Encounter - Ghislaine Blount - 10/08/2024 1:38 PM EDTPatient Instructions Note Date & Type Note Facility 11-13-2024 History of Present illness Narrative Department of Neurological Sciences Visit Note CHIEF COMPLAINT: Chief Complaint Patient presents with Follow-up 5 week follow up, dizziness - off and on pt states it worsens with movement Main diagnoses: Dizziness and numbness. HISTORY OF PRESENT ILLNESS: The patient is a 54 y.o. female today presents to the Neurology clinic with history of numbness and dizziness. Patient was evaluated in the neurology clinic about 6 weeks ago. At that time patient was presenting with episodes of dizziness also complaining of numbness affecting both upper and lower extremities. Patient is known to have diabetes mellitus. In the initial evaluation patient had decreased pinprick and light touch in both upper and lower extremities. Patient was sent for an MRI of the brain, EMG of the right upper and lower extremity and laboratory testing for neuropathy. 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 Patient also had carpal tunnel syndrome in the right upper extremity. The MRI of the brain shows microangiopathy with no significant atrophy. Nightly laboratory testing was only positive for a hemoglobin A1c of 9.2. Secundary diagnoses: Diabetes mellitus Medications: Current Medications[1] Allergies: Bee pollen, Bee venom, Dust mite extract, Honey bee venom, Ibuprofen, Molds & smuts, Propoxyphene, Nsaids, Acetaminophen, Asa [aspirin], Asacol [mesalamine], Formoterol, Humira [adalimumab], Iothalamate, Levaquin [levofloxacin], Levofloxacin in d5w, Macrobid [nitrofurantoin], Methylprednisolone sodium succ, Nitrofurantoin macrocrystal, Reglan [metoclopramide], Solu-medrol [methylprednisolone], Sulfadiazine, and Zithromax [azithromycin] Social History: Social History Socioeconomic History Marital status: Spouse name: Not on file Number of children: Not on file Years of education: Not on file Highest education level: Not on file Occupational History Not on file Tobacco Use Smoking status: Former Current packs/day: 0.00 Average packs/day: 0.5 packs/day for 25.0 years (12.5 ttl pk-yrs) Types: Cigarettes Start date: 01/25/1993 Quit date: 01/25/2018 Years since quittin.8 Passive exposure: Past Smokeless tobacco: Never Vaping Use Vaping status: Never Used Substance and Sexual Activity Alcohol use: No Alcohol/week: 0.0 standard drinks of alcohol Drug use: No Sexual activity: Not on file Other Topics Concern Not on file Social History Narrative Not on file Social Drivers of Health Financial Resource Strain: Not on file Food Insecurity: Not on file Transportation Needs: Not on file Physical Activity: Not on file Stress: Not on file Social Connections: Not on file Intimate Partner Violence: Not on file Housing Stability: Not on file Family History: Family History[2] REVIEW OF SYSTEMS: Review of Systems Constitutional: Positive for fatigue. HENT: Negative. Eyes: Negative. Respiratory: Negative. Cardiovascular: Positive for palpitations. Gastrointestinal: Positive for nausea. Endocrine: Negative. Genitourinary: Negative. Musculoskeletal: Positive for arthralgias, back pain and neck stiffness. Skin: Negative. Allergic/Immunologic: Negative. Neurological: Positive for dizziness, weakness and numbness. Hematological: Negative. Psychiatric/Behavioral: Positive for sleep disturbance. The patient is nervous/anxious. PHYSICAL EXAM: Vitals: BP 122/88 Ht 5' 6 (1.676 m) Wt 185 lb (83.9 kg) BMI 29.86 kg/m Constitutional: Appearance: Normal appearance. HENT: Head: Normocephalic and atraumatic. Nose: Nose normal. Mouth/Throat: Mouth: Mucous membranes are moist. Pharynx: Oropharynx is clear. Eyes: General: Vision grossly intact. Gaze aligned appropriately. Extraocular Movements: Extraocular movements intact. Conjunctiva/sclera: Conjunctivae normal. Pupils: Pupils are equal, round, and reactive to light. Neck: Trachea: Trachea and phonation normal. Cardiovascular: Rate and Rhythm: Normal rate and regular rhythm. Pulses: Normal pulses. Heart sounds: Normal heart sounds. Pulmonary: Effort: Pulmonary effort is normal. Breath sounds: Normal breath sounds. Abdominal: General: Abdomen is flat. Bowel sounds are normal. Palpations: Abdomen is soft. Musculoskeletal: General: Normal range of motion. Cervical back: Normal range of motion and neck supple. Skin: General: Skin is warm and dry. Neurological: General: No focal deficit present. Mental Status: She is alert and oriented to person, place, and time. Mental status is at baseline. Cranial Nerves: Cranial nerves 2-12 are intact. Sensory: Sensory deficit present. Motor: Weakness and atrophy present. Gait: Gait abnormal. Deep Tendon Reflexes: Reflex Scores: Tricep reflexes are 1+ on the right side and 1+ on the left side. Bicep reflexes are 1+ on the right side and 1+ on the left side. Brachioradialis reflexes are 1+ on the right side and 1+ on the left side. Patellar reflexes are 1+ on the right side and 1+ on the left side. Achilles reflexes are 0 on the right side and 0 on the left side. Comments: Neurological exam revealed the presence of decreased pinprick and light touch vibration and proprioception in both upper and lower extremity following the typical glove and stocking distribution. There is decreased DTRs in both lower extremities. Plantar responses are flexor. Gait patient shows wide base and a steady gait most likely secondary to peripheral neuropathy.. Psychiatric: Attention and Perception: Attention normal. Mood and Affect: Mood normal. Speech: Speech normal. Behavior: Behavior normal. Behavior is cooperative. Thought Content: Thought content normal. Cognition and Memory: Cognition normal. Judgment: Judgment normal. Impression: Diagnosis Plan 1. Numbness and tingling 2. Dizziness Plan: 1. Patient have peripheral neuropathy mainly sensory. Addition patient also may have carpal tunnel syndrome. 2. Patient had difficulty with gait and ambulation because of peripheral neuropathy. He was advised to try to ambulate with her eyes open and try to scan the floors. That way her brain will now for she is. 3. Patient was advised to try to keep her hemoglobin A1c below 6.0. 4. We are going to wait for the CT scan of the brain and also we will try to get the CT scan of cervical spine which she has had [facility] patient may have severe stenosis. 5. Patient will return to the neurology clinic in 1 month for further evaluation thank you Treva Sweet MD [1] Current Outpatient Medications Medication Sig Dispense Refill ammonium lactate (Lac-Hydrin) 12 % lotion Apply topically once a day. 225 g 2 cetirizine (ZyrTEC) 10 MG tablet Take 10 mg by mouth. Daily dicyclomine (Bentyl) 20 MG tablet diphenhydrAMINE (BENADryl) 25 MG tablet Take 25 mg by mouth. diphenoxylate-atropine (Lomotil) 2.5-0.025 MG tablet Take 2 tablets 4 times a day by oral route as needed. EPINEPHrine (Epipen) 0.3 MG/0.3ML injection syringe TAKE 1 AUTO EVERY DAY BY INJECTION ROUTE NEEDED. ezetimibe (Zetia) 10 MG tablet Take 10 mg by mouth daily. fexofenadine-pseudoephedrine ER (Taryn-D) 60-120 MG 12 hr tablet Take 1 tablet by mouth. folic acid (Folvite) 1 MG tablet Take by mouth daily. glimepiride (Amaryl) 4 MG tablet Take 4 mg by mouth every morning (before breakfast). 2 daily Insulin Glargine (TOUJEO MAX SOLOSTAR SC) Inject under the skin. 84 units daily ipratropium (Atrovent) 0.03 % nasal spray metFORMIN, MOD, (Glumetza) 1000 MG 24 hr [...] hours as needed for nausea or vomiting. ondansetron ODT (Zofran-ODT) 8 MG disintegrating tablet Take 8 mg by mouth every 8 hours as needed. promethazine (Phenergan) 25 MG tablet Take by [...] mouth daily. Do not crush or chew. fluconazole (Diflucan) 200 MG tablet No current facility-administered medications for this visit. [2] Family History Problem Relation Name Age of Onset Thyroid disease Mother Skin cancer Sister 47 Uterine cancer Maternal Grandmother Sania 32 Lung cancer Maternal Grandfather 75 Skin cancer Mother's Sister Marilee 58 Breast cancer Mother's Sister Marilee 83 Breast cancer Maternal Cousin 30 - 39 Breast cancer Maternal Cousin 68 Breast cancer Maternal Cousin 50 - 59 Breast cancer Maternal Great-Grandmother 78 documented in this encounter [facility] 10-11-2024 Note [facility] neurology lab EMG/NCS report: Patient: Ragini Mensah AGE: 54 y.o. Handedness: Right Gender: Female referring physician: Treva Sweet MD Study date: 10/11/24 Reason for referral: Patient presents with numbness, paresthesia and pain in the feet bilaterally. Patient also has neck pain and lower back pain as well as numbness tingling and paresthesia in the hands bilaterally. EMG/nerve conduction study of the right upper extremity and the right lower extremity is done to evaluate for mononeuropathy affecting the right upper extremity, mononeuropathy affecting the right lower extremity, right cervical radiculopathy and right sided lumbosacral radiculopathy. Summary: The right median sensory nerve action potential was unremarkable. The right ulnar sensory nerve action potential was unremarkable. The right radial sensory nerve action potential was unremarkable. The right sural sensory nerve action potential was absent. The right superficial peroneal sensory nerve action potential was absent. The right median to ulnar ring finger comparison study was remarkable for a prolonged median peak latency compared to its ulnar counterpart and a decreased median palmar amplitude. The right median to ulnar palmar comparison mixed nerve action potential was remarkable for a prolonged median peak latency compared to its ulnar counterpart and a decreased median palmar amplitude. The right median to APB compound muscle action potential was unremarkable. The right ulnar to ADM compound muscle action potential was unremarkable. The right common peroneal to EDB compound muscle action potential was remarkable for a decreased conduction velocity. Of note there was an accessory peroneal nerve noted on that study. The right tibial to AH compound muscle action potential was remarkable for a decreased conduction velocity. The right deep peroneal to tibialis anterior compound muscle action potential was unremarkable. Concentric needle EMG was performed in the right upper extremity and the right lower extremity. No increased insertional activity, fibrillation potentials, fasciculation potentials or positive sharp waves are seen in any muscle tested. Motor unit action potentials demonstrated increased amplitude, duration and reduced recruitment in the right tibialis anterior and the right medial gastrocnemius. All other muscles tested demonstrated normal morphology and firing pattern throughout. Impression: This is an abnormal study. There is electrophysiological evidence of a length-dependent, large fiber, sensory predominant (with mild motor involvement) peripheral neuropathy which is axonal in nature. There is also evidence of a right median neuropathy at or distal to the wrist, e.g. carpal tunnel syndrome, which is mild in severity electrophysiologically. There is no evidence of a right cervical radiculopathy or right sided lumbosacral radiculopathy on this study. All normal values/reference values for this study were taken from the [facility] reference values. This dictation was done by using the [employer] dictation system. It has been proofread but still may contain unrecognized voice recognition errors. [facility] 10-08-2024 Telephone encounter Note Working on auth [facility] 10-08-2024 Miscellaneous Notes Working on auth Your patient has been scheduled for their MRI on 10/30/2024 at 6:30. If testing requires an insurance authorization, the authorization must be in place 48 hours prior to the scheduled test or testing will be cancelled. Thank you, Central Scheduling documented in this encounter [facility] 10-08-2024 History of Present illness Narrative DATE OF SERVICE: 10/08/2024 PATIENT NAME: Ragini Mensah : 1970 AGE: 54 y.o. CLINIC NUMBER: [id number] Visit type: Established patient Chief Complaint Patient presents with Skin Lesion (PKN) Subjective HISTORY OF PRESENT ILLNESS: Ragini Mensah is a 54 y.o. who presents to the office for a check up. Patient has never had an FSE before. Last seen 03/06/2024 with Radha Morgan PA-C. Patient denies any new, changing, itching or bleeding lesions. Patient has no h/o of ATN. Patient has no h/o of AKs. Patient has no personal h/o skin cancer. Patient has no family h/o melanoma. Patient has family hx of skin cancer, unknown type: sister and maternal aunt. History of pacemaker/ defibrillator? No History of HIV/ Hep C? No Allergies to Lidocaine, Epinephrine, Latex or Adhesive? Sensitive to Lidocaine and adhesives. Social History: Born/raised in [place]. Excessive sun exposure: Yes Used tanning beds: No Patient does wear SPF. Patient does not use additional sun protection measures. Review of Systems Dermatology: as per HPI, otherwise negative Vitals: 10/08/24 1301 BP: (!) 143/77 Pulse: 86 PHYSICAL EXAM: GENERAL APPEARANCE:?alert and oriented x3, well developed and well nourished. PSYCH: appropriate mood and affect DERMATOLOGY: Skin Exam 1. MULTIPLE BENIGN MELANOCYTIC NEVI OF BOTH UPPER EXTREMITIES, BOTH LOWER EXTREMITIES, AND TRUNK Generalized Scattered uniform diego/brown nevoid macules and papules; showing normal patterns with dermoscopy Reassured that this is a benign lesion and does not require any treatment. Educated that if the lesion changes color, becomes larger, bleeds, becomes bothersome or painful then it should be reevaluated. Patient expresses understanding and is agreeable to plan. 2. SOLAR LENTIGO Generalized Light brown well-circumscribed macule(s) Educated and reassured, benign finding secondary to sun exposure. Patient educated on the proper use of sunscreen, SPF, and how often to reapply. Recommend use of OTC mineral sun block, like Neutrogena or La-Obi Posay. Patient advised to look for zinc or titanium as the active ingredient(s). 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 Patient advised to perform self-skin checks and call for follow up appointment if any new or concerning lesions detected. Sunscreen Use & Sun Safety It is recommended a water-resistant, broad-spectrum sunscreen with SPF of at least 15 to 30. Apply sunscreen to all exposed skin 30 minutes before sun exposure, and then every 2 hours. Apply sooner if sweating or coming out of pool/water. Using the proper amount of sunscreen in important. An adult should use about 1-1.5 oz of sunscreen to the entire body, about 2-3 tablespoons per application. Use a lip balm with SPF 30 or higher to protect the lips from sun damage. Limit time in the sun, especially between 10 AM and 2 PM when the sun s rays are the strongest. Clothing labeled with a UPF (ultra-ham protection factor) rating indicates that it s protective against UV rays. Also, wear wide-brimmed hats, and sunglasses for sun protection. 3. SEBORRHEIC KERATOSIS (2) Generalized, Left Breast Diego-brown waxy papule(s) and plaque(s) Reassured that this is a benign lesion and does not require any treatment. Educated that if the lesion changes color, becomes larger, bleeds, becomes bothersome or painful then it should be reevaluated. Patient expresses understanding and is agreeable to plan. 4. SCHMIDT ANGIOMA Generalized Bright red vascular papule(s) Reassured and educated, benign finding. 5. PILAR CYST Mid Parietal Scalp firm, non-tender, mobile subcutaneous nodule with out central comedone Reviewed no treatment is needed unless cyst becomes inflamed, infected, or bothersome. Treatment options include injections, I&D, or complete surgical removal. Patient declines treatment at this time. 6. LIPOMA OF LEFT UPPER EXTREMITY Left Posterior Axilla Soft, non-tender, mobile subcutaneous nodule of posterior left axilla Reviewed no treatment is needed unless lipoma becomes inflamed, infected, or bothersome. Treatment options include complete surgical removal. Patient declines treatment at this time. 7. KERATOSIS PILARIS (2) Left Forearm - Posterior, Right Forearm - Posterior Flesh/pink colored folliculocentric papules Keratosis pilaris, or KP, is an extremely common and benign skin problem. It's the results of abnormal shedding of the skin and is commonly referred to a gooseflesh. It occurs on the upper arms, thighs, buttocks and sometimes on the face. Topical medications can be used once to twice per day to diminish the bumps and rough texture. Continue: -lac hydrin: apply to affected areas once to twice daily (patient encouraged to use regularly) Follow up in about 1 year (around 10/08/2025) for FSE. Katya Figueroa PA-C 10/08/24 1:14 PM REFERRING MD: No referring provider defined for this encounter. documented in this encounter [facility] 10-07-2024 Telephone encounter Note Reason for call: Sridevi pt has been r/s for Nerve Conduction Test w/ EMG on 10/11/24 at [facility]. If you have any questions please give us a call. Thank you, Central Scheduling Contact Phone Number: [phone] [facility] 10-07-2024 Miscellaneous Notes Reason for call: tricia Laureano has been r/s for Nerve Conduction Test w/ EMG on 10/11/24 at [facility]. If you have any questions please give us a call. Thank you, Central Scheduling Contact Phone Number: [phone] documented in this encounter [facility] 10-07-2024 Telephone encounter Note Your patient has been scheduled for their MRI on 10/30/2024 at 6:30. If testing requires an insurance authorization, the authorization must be in place 48 hours prior to the scheduled test or testing will be cancelled. Thank you, Central Scheduling [facility] 10-07-2024 Miscellaneous Notes Your patient has been scheduled for their MRI on 10/30/2024 at 6:30. If testing requires an insurance authorization, the authorization must be in place 48 hours prior to the scheduled test or testing will be cancelled. Thank you, Central Scheduling documented in this encounter [facility] 10-07-2024 History of Present illness Narrative Department of Neurological Sciences Initial Consult Note CHIEF COMPLAINT: Chief Complaint Patient presents with Dizziness On and off for several months Reason for Consult: Dizziness HISTORY OF PRESENT ILLNESS: The patient is a 54 y.o. female who presents with history of peripheral neuropathy secondary to diabetes and progressive dizziness and ataxia. Today patient presented to the neurology clinic for evaluation and treatment of her frequent episodes of dizziness and loss of balance. Patient reports that her symptoms is start approximately a year ago and has been getting progressively worse over the last few months. Lately patient had noticed that she had developed a wide-based gait and also that she has significant difficulty when she tried to turn around. She denied any focal weakness. Patient complained of numbness in both upper and lower extremities following the typical glove stocking distribution. Patient had diabetes mellitus/Crohn's disease. Patient reports that her glucose has been relatively well-controlled. Her hemoglobin A1c is 6.2. Patient denied any other neurological deficits. Past Medical History: Medical History[1] Past Surgical History: Surgical History[2] Medications: Current Medications[3] Allergies: Bee pollen, Bee venom, Dust mite extract, Honey bee venom, Ibuprofen, Molds & smuts, Propoxyphene, Nsaids, Acetaminophen, Asa [aspirin], Asacol [mesalamine], Formoterol, Humira [adalimumab], Iothalamate, Levaquin [levofloxacin], Levofloxacin in d5w, Macrobid [nitrofurantoin], Methylprednisolone sodium succ, Nitrofurantoin macrocrystal, Reglan [metoclopramide], Solu-medrol [methylprednisolone], Sulfadiazine, and Zithromax [azithromycin] Social History: Social History Socioeconomic History Marital status: Spouse name: Not on file Number of children: Not on file Years of education: Not on file Highest education level: Not on file Occupational History Not on file Tobacco Use Smoking status: Former Current packs/day: 0.00 Average packs/day: 0.5 packs/day for 25.0 years (12.5 ttl pk-yrs) Types: Cigarettes Start date: 01/25/1993 Quit date: 01/25/2018 Years since quittin.7 Passive exposure: Past Smokeless tobacco: Never Vaping Use Vaping status: Never Used Substance and Sexual Activity Alcohol use: No Alcohol/week: 0.0 standard drinks of alcohol Drug use: No Sexual activity: Not on file Other Topics Concern Not on file Social History Narrative Not on file Social Drivers of Health Financial Resource Strain: Not on file Food Insecurity: Not on file Transportation Needs: Not on file Physical Activity: Not on file Stress: Not on file Social Connections: Not on file Intimate Partner Violence: Not on file Housing Stability: Not on file Family History: Family History[4] REVIEW OF SYSTEMS: Review of Systems Constitutional: Positive for fatigue. HENT: Negative. Eyes: Negative. Respiratory: Negative. Cardiovascular: Positive for palpitations. Gastrointestinal: Positive for nausea. Endocrine: Negative. Genitourinary: Negative. Musculoskeletal: Positive for arthralgias, back pain and neck stiffness. Skin: Negative. Allergic/Immunologic: Negative. Neurological: Positive for dizziness, weakness and numbness. Hematological: Negative. Psychiatric/Behavioral: Positive for sleep disturbance. The patient is nervous/anxious. PHYSICAL EXAM: Vitals: BP (!) 154/84 Pulse 89 Wt 180 lb 8 oz (81.9 kg) BMI 29.13 kg/m Physical Exam Constitutional: Appearance: Normal appearance. HENT: Head: Normocephalic and atraumatic. Nose: Nose normal. Mouth/Throat: Mouth: Mucous membranes are moist. Pharynx: Oropharynx is clear. Eyes: General: Vision grossly intact. Gaze aligned appropriately. Extraocular Movements: Extraocular movements intact. Conjunctiva/sclera: Conjunctivae normal. Pupils: Pupils are equal, round, and reactive to light. Neck: Trachea: Trachea and phonation normal. Cardiovascular: Rate and Rhythm: Normal rate and regular rhythm. Pulses: Normal pulses. Heart sounds: Normal heart sounds. Pulmonary: Effort: Pulmonary effort is normal. Breath sounds: Normal breath sounds. Abdominal: General: Abdomen is flat. Bowel sounds are normal. Palpations: Abdomen is soft. Musculoskeletal: General: Normal range of motion. Cervical back: Normal range of motion and neck supple. Skin: General: Skin is warm and dry. Neurological: General: No focal deficit present. Mental Status: She is alert and oriented to person, place, and time. Mental status is at baseline. Cranial Nerves: Cranial nerves 2-12 are intact. Sensory: Sensory deficit present. Motor: Weakness and atrophy present. Gait: Gait abnormal. Deep Tendon Reflexes: Reflex Scores: Tricep reflexes are 1+ on the right side and 1+ on the left side. Bicep reflexes are 1+ on the right side and 1+ on the left side. Brachioradialis reflexes are 1+ on the right side and 1+ on the left side. Patellar reflexes are 1+ on the right side and 1+ on the left side. Achilles reflexes are 0 on the right side and 0 on the left side. Comments: Neurological exam revealed the presence of decreased pinprick and light touch vibration and proprioception in both upper and lower extremity following the typical glove and stocking distribution. There is decreased DTRs in both lower extremities. Plantar responses are flexor. Gait patient shows wide base and a steady gait most likely secondary to peripheral neuropathy.. Psychiatric: Attention and Perception: Attention normal. Mood and Affect: Mood normal. Speech: Speech normal. Behavior: Behavior normal. Behavior is cooperative. Thought Content: Thought content normal. Cognition and Memory: Cognition normal. Judgment: Judgment normal. Impression: Diagnosis Plan 1. Numbness Hemoglobin A1c C-reactive protein Comprehensive metabolic panel JAMES Sedimentation rate, automated Vitamin B12 Hepatitis B core antibody, IgM Immunofixation Electrophoresis Sjogren's Antibodies (SS-A,SS-B) ([facility]) NERVE CONDUCTION TEST WITH EMG MR brain wo contrast Hemoglobin A1c C-reactive protein Comprehensive metabolic panel JAMES Sedimentation rate, automated Vitamin B12 Hepatitis B core antibody, IgM Immunofixation Electrophoresis Plan: 1. You are going to evaluate patient peripheral neuropathy. Currently we are going to obtain an EMG of the right upper and lower extremity to see the degree of peripheral neuropathy. 2. We are going to obtain a peripheral neuropathy workup. Patient have diabetes which most likely the cause of the polyneuropathy but we want to rule out the presence of any other causes. 3. Finally, this patient has a wide-based ataxic gait we are going to obtain an MRI of the brain to evaluate her cerebellar function. 4. 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 Crohn's colitis (CMS/HCC) (HCC) Diabetes (HCC) Controled by diet GERD (gastroesophageal reflux disease) Hyperlipidemia MVP (mitral valve prolapse) hx of Osteoarthritis Personal history of irradiation 2016 R breast Restless leg syndrome Tachycardia TMJ (dislocation of temporomandibular joint) [2] Past Surgical History: Procedure Laterality Date APPENDECTOMY 2015 BREAST BIOPSY Right 06/09/2015 core biopsy right breast x 2 (+) BREAST BIOPSY Left 06/23/2015 core biopsy left breast (-) BREAST ENHANCEMENT SURGERY Bilateral 2005 BREAST LUMPECTOMY Right 07/20/2015 RSL right breast lumpectomy BREAST SURGERY Bilateral [...] SALPINGOOPHORECTOMY Bilateral 09/2015 Laparoscopic TMJ ARTHROPLASTY (HISTORICAL) / x's 4 TMJ ARTHROSCOPY (HISTORICAL) TONSILLECTOMY AND ADENOIDECTOMY (HISTORICAL) 1975 TUBAL LIGATION 2004 WISDOM TOOTH EXTRACTION [3] Current Outpatient Medications Medication Sig Dispense Refill alpha tocopherol (Vitamin E) 400 units capsule Take 800 Units by mouth. ammonium lactate (Lac-Hydrin) 12 % lotion Apply topically once a day. 225 g 2 atorvastatin (Lipitor) 40 MG tablet Take 1 tablet by mouth daily. cephalexin (Keflex) 500 MG capsule TAKE ONE CAPSULE BY MOUTH THREE TIMES DAILY FOR 7 DAYS cetirizine (ZyrTEC) 10 MG tablet Take 10 mg by mouth. Daily dicyclomine (Bentyl) 10 MG capsule 1 CAPSULE ORALLY THREE TIMES A DAY NEEDED FOR ABDOMINAL PAIN 90 DAYS dicyclomine (Bentyl) 10 MG/ML injection 2 caps orally four times a day as needed dicyclomine (Bentyl) 20 MG tablet diphenhydrAMINE (BENADryl) 25 MG tablet Take 25 mg by mouth. diphenoxylate-atropine (Lomotil) 2.5-0.025 MG tablet Take 2 tablets 4 times a day by oral route as needed. EPINEPHrine (Epipen) 0.3 MG/0.3ML injection syringe TAKE 1 AUTO EVERY DAY BY INJECTION ROUTE NEEDED. ezetimibe (Zetia) 10 MG tablet Take 10 mg by mouth daily. fexofenadine-pseudoephedrine ER (Taryn-D) 60-120 MG 12 hr tablet Take 1 tablet by mouth. fluconazole (Diflucan) 200 MG tablet folic acid (Folvite) 1 MG tablet Take by mouth daily. glimepiride (Amaryl) 4 MG tablet Take 4 mg by mouth every morning (before breakfast). 2 daily Insulin Glargine (TOUJEO MAX SOLOSTAR SC) Inject under the skin. 84 units daily ipratropium (Atrovent) 0.03 % nasal spray Magnesium 500 MG capsule Take by mouth Nightly. metFORMIN, MOD, (Glumetza) 1000 MG 24 hr tablet Take 1,000 mg by mouth in the morning and 1,000 mg in the evening. Take with meals. Do not crush, chew, or split.. methotrexate 2.5 MG tablet Take by mouth 1 (one) time per week. Follow directions carefully, and ask to explain any part you do not understand. Take exactly as directed. 10 tabs weekly metoclopramide (Reglan) 10 MG tablet every 12 hours. metoprolol succinate XL (Toprol-XL) 100 MG 24 hr tablet Take 100 mg by mouth. Do not crush or chew. omega-3 acid ethyl esters (Lovaza) 1 g capsule Take 1,000 mg by mouth in the morning. omeprazole (PriLOSEC) [address] capsule Take 40 mg by mouth every morning (before breakfast). Do not crush or chew. ondansetron (Zofran) 8 MG tablet Take by mouth every 8 hours as needed for nausea or vomiting. ondansetron ODT (Zofran-ODT) 8 MG disintegrating tablet Take 8 mg by mouth every 8 hours as needed. promethazine (Phenergan) 25 MG tablet Take by [...] crush or chew. No current facility-administered medications for this visit. [4] Family History Problem Relation Name Age of Onset Thyroid disease Mother Skin cancer Sister 47 Uterine cancer Maternal Grandmother 32 Lung cancer Maternal Grandfather 75 Skin cancer Mother's Sister Marilee 58 Breast cancer Mother's Sister Marilee 83 Breast cancer Maternal Cousin 30 - 39 Breast cancer Maternal Cousin 68 Breast cancer Maternal Cousin 50 - 59 Breast cancer Maternal Great-Grandmother 78 documented in this encounter [facility] 03-06-2024 History of Present illness Narrative DATE OF SERVICE: 03/06/2024 PATIENT NAME: Ragini Mensah : 1970 AGE: 53 y.o. 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 Subjective HISTORY OF PRESENT ILLNESS: This is a 53 y.o. female who presents for evaluation of skin lesion. Patient has seen a cell biologist in the past. C/o-skin lesion located on the left chest x 2-3 years. Admits itching. Admits changes in size. Denies previous treatment. C/o-skin lesion located on the left axilla x 2-3 years. Patient states the lesion is a skin tag. Denies itching, bleeding, pain. Denies changes in size, shape, color. Denies previous treatment. C/o-skin lesion located on the left arm x 2-3 years. Patient states the lesion is a fatty lump. Admits itching, bleeding. Denies changes in size, shape, color. Denies previous treatment. Patient has no h/o of ATN. Patient has no h/o of AKs. Patient has no personal h/o skin cancer. Patient has no family h/o melanoma. History of pacemaker/ defibrillator? No History of HIV/ Hep C? No Allergies to Lidocaine, Epinephrine, Latex or Adhesive? Sensitive to Lidocaine. Social History: Born/raised in [place]. Excessive sun exposure: Yes Used tanning beds: No Patient does wear SPF. Patient does not use additional sun protection measures. REVIEW OF SYSTEMS: General/Constitutional Feels well; denies h/o fatigue, weight change, night sweats, fevers or chills. Lymphatic Denies swollen lymph nodes. Dermatologic As per HPI There were no vitals filed for this visit. GENERAL APPEARANCE:?Alert & oriented x3, pleasant. Well developed, well nourished. PSYCH: appropriate mood and affect DERMATOLOGY: 1. Xerosis cutis (2) Left Elbow - Posterior, Right Elbow - Posterior Lichenification of skin bilateral elbows [x]Chronic []Acute/New []Stable [x]Flaring/Exacerbation []Uncertain Prognosis []OTC Management [x]Prescription Management Appropriate skin care is critical. Gentle non-soap cleansers should be utilized. The liberal use of bland emollients is essential. These products should be fragrance and dye free. Use gentle, fragrance free, dye free soaps, cleanser (Aquaphor, Aveeno, CeraVe, Cetaphil, Eucerin, La Obi Posay, Neutrogena, Vaseline, Vanicream), and laundry products (usually found in a white bottle or box). Dry skin care and importance of liberal emollient use reviewed. Creams come in tubes or tubs and tend to be thicker resulting in better hydration. Lotions tend to come in pumps and are more watery. Both will help with hydration but the creams tend to have a more occlusive barrier which hold more water in the skin cells. Start: - ammonium lactate (Lac-Hydrin) 12 % lotion BID Related Medications ammonium lactate (Lac-Hydrin) 12 % lotion Apply topically once a day. 2. Seborrheic keratosis Left Breast Diego-brown waxy papule(s) and plaque(s) Reassured that this is a benign lesion and does not require any treatment. Educated that if the lesion changes color, becomes larger, bleeds, becomes bothersome or painful then it should be reevaluated. Patient expresses understanding and is agreeable to plan. 3. Skin tags, multiple acquired Left Axilla Flesh colored pedunculated papule(s) without signs of irritation/inflammation. Reassured that this is a benign lesion and does not require any treatment. Educated that if the lesion changes color, becomes larger, bleeds, becomes bothersome or painful then it should be reevaluated. Patient expresses understanding and is agreeable to plan. 4. Multiple benign melanocytic nevi of both upper extremities, both lower extremities, and trunk Left Breast Scattered uniform diego/brown nevoid macules and papules; showing normal patterns with dermoscopy Reassured that this is a benign lesion and does not require any treatment. Educated that if the lesion changes color, becomes larger, bleeds, becomes bothersome or painful then it should be reevaluated. Patient expresses understanding and is agreeable to plan. 5. Dermatofibroma Right Lower Leg - Anterior Firm hyperpigmented papule(s) This is a benign growth that may occur secondary to trauma or insect bite, although the exact cause or manner of development is unknown. Orders Placed This Encounter Medications ammonium lactate (Lac-Hydrin) 12 % lotion Sig: Apply topically once a day. Dispense: 225 g Refill: 2 No follow-ups on file. Radha Morgan PA-C 03/06/24 8:45 AM REFERRING MD: documented in this encounter [facility] 02-15-2024 History of Present illness Narrative Images from the original note were not included. [facility] [address] [place] [address] [place] [id number] Dept: [phone] Dept 02/15/2024 Chief Complaint Patient presents with New Patient Right hand pain HPI Ragini Mensah is a 53 y.o. right handed female that presents for evaluation of pain and multiple bumps in her RIGHT hand . Symptoms have been present for greater than 2 year(s). The symptoms started after no known injury or trauma. Pain Characteristics Described as aching Worse with gripping Alleviated acetaminophen Severity 5 on scale of 1-10 Previous Treatments NSAIDs: No - Have not tried Injection: No - Has never received an injection Therapy: No - Has not attempted formal therapy Splinting: No - Has not tried any splinting Surgery: No - Has not had previous surgery on the symptomatic extremity MRI: No Has not had an MRI No results found for: HGBA1C Past Surgical History: Procedure Laterality Date APPENDECTOMY 2015 BREAST BIOPSY Right 06/09/2015 core biopsy right breast x 2 (+) BREAST BIOPSY Left 06/23/2015 core biopsy left breast (-) BREAST ENHANCEMENT SURGERY Bilateral 2005 BREAST LUMPECTOMY Right 07/20/2015 RSL right breast lumpectomy BREAST SURGERY Bilateral [...] SALPINGOOPHORECTOMY Bilateral 09/2015 Laparoscopic TMJ ARTHROPLASTY (HISTORICAL) / x's 4 TMJ ARTHROSCOPY (HISTORICAL) TONSILLECTOMY AND ADENOIDECTOMY (HISTORICAL) 1975 TUBAL LIGATION 2004 WISDOM TOOTH EXTRACTION Past Medical History: Diagnosis Date Allergic rhinitis Arthritis Back pain BRCA1 negative 2016 BRCA2 negative 2016 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, 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 Crohn's colitis (CMS/HCC) (HCC) Diabetes (HCC) Controled by diet GERD (gastroesophageal reflux disease) Hyperlipidemia MVP (mitral valve prolapse) hx of Osteoarthritis Personal history of irradiation 2015 R breast Restless leg syndrome Tachycardia TMJ (dislocation of temporomandibular joint) Allergies Allergen Reactions Bee Pollen Anaphylaxis Bee Venom Anaphylaxis Dust Mite Extract Other Reaction(s): nasal congenstion Honey Bee Venom Anaphylaxis Ibuprofen Other Reaction(s): Unable due to Chrons Molds & Smuts Propoxyphene Hives Nsaids Other Gastric problems Acetaminophen Hives Asa [Aspirin] Grohns Asacol [Mesalamine] Hives Formoterol Humira [Adalimumab] Hives Iothalamate Levaquin [Levofloxacin] Hives Levofloxacin In D5w Hives Macrobid [Nitrofurantoin] Lethargy sleep Methylprednisolone Sodium Succ Hives Nitrofurantoin Macrocrystal Nausea Only and Other lethergy Reglan [Metoclopramide] Tardive dyskinesia Solu-Medrol [Methylprednisolone] Hives Sulfadiazine Hives Zithromax [Azithromycin] GI upset Current Outpatient Medications Medication Sig Dispense Refill BD Pen Needle Micro U/F 32G X 6 MM misc cephalexin (Keflex) 500 MG capsule TAKE ONE CAPSULE BY MOUTH THREE TIMES DAILY FOR 7 DAYS dicyclomine (Bentyl) 20 MG tablet fluconazole (Diflucan) 200 MG tablet ipratropium (Atrovent) 0.03 % nasal spray alpha tocopherol (Vitamin E) 400 units capsule Take 800 Units by mouth. anastrozole (Arimidex) 1 MG tablet Every 24 hours. atorvastatin (Lipitor) 10 MG tablet Take 10 mg by mouth in the morning. atorvastatin (Lipitor) 20 MG tablet 1 tab(s) orally qhs for 30 day(s) atorvastatin (Lipitor) 40 MG tablet Take 1 tablet by mouth daily. cetirizine (ZyrTEC) 10 MG tablet Take 10 mg by mouth. Daily dicyclomine (Bentyl) 10 MG capsule 1 CAPSULE ORALLY THREE TIMES A DAY NEEDED FOR ABDOMINAL PAIN 90 DAYS dicyclomine (Bentyl) 10 MG/ML injection 2 caps orally four times a day as needed diphenhydrAMINE (BENADryl) 25 MG tablet Take 25 mg by mouth. diphenoxylate-atropine (Lomotil) 2.5-0.025 MG tablet Take 2 tablets 4 times a day by oral route as needed. EPINEPHrine (Epipen) 0.3 MG/0.3ML injection syringe TAKE 1 AUTO EVERY DAY BY INJECTION ROUTE NEEDED. ezetimibe (Zetia) 10 MG tablet Take 10 mg by mouth daily. fexofenadine-pseudoephedrine ER (Taryn-D) 60-120 MG 12 hr tablet Take 1 tablet by mouth. folic acid (Folvite) 1 MG tablet Take by mouth daily. glimepiride (Amaryl) 4 MG tablet Take 4 mg by mouth every morning (before breakfast). 2 daily HYDROcodone-acetaminophen ([place]) 5-325 MG tablet Take 2 tablets by mouth Nightly. HYDROcodone-acetaminophen (Vicodin) 5-300 MG tablet 1 tab(s) orally qhs Insulin Glargine (TOUJEO MAX SOLOSTAR SC) Inject under the skin. 84 units daily Magnesium 500 MG capsule Take by mouth Nightly. metFORMIN, MOD, (Glumetza) 1000 MG 24 hr tablet Take 1,000 mg by mouth in the morning and 1,000 mg in the evening. Take with meals. Do not crush, chew, or split.. methotrexate 2.5 MG tablet Take by mouth 1 (one) time per week. Follow directions carefully, and ask to explain any part you do not understand. Take exactly as directed. 10 tabs weekly metoclopramide (Reglan) 10 MG tablet every 12 hours. metoprolol succinate XL (Toprol-XL) 100 MG 24 hr tablet Take 100 mg by mouth. Do not crush or chew. omega-3 acid ethyl esters (Lovaza) 1 g capsule Take 1,000 mg by mouth in the morning. omeprazole (PriLOSEC) [address] capsule Take 40 mg by mouth every morning (before breakfast). Do not crush or chew. ondansetron (Zofran) 8 MG tablet Take by mouth every 8 hours as needed for nausea or vomiting. ondansetron ODT (Zofran-ODT) 8 MG disintegrating tablet Take 8 mg by mouth every 8 hours as needed. pancrelipase, Gnj-Pimm-Ybgx, (Creon) 28417-830397 units capsule delayed-release particles capsule 1 cap(s) orally 3-5 times a day promethazine (Phenergan) 25 MG tablet Take by [...] crush or chew. No current facility-administered medications for this visit. OBJECTIVE BP 131/81 Ht 5' 6 (1.676 m) Wt 179 lb (81.2 kg) BMI 28.89 kg/m Ortho Exam Focused Exam of the RIGHT Upper Extremity Palpable cord: POSITIVE Tabletop test: negative Clinical image(s): IMAGING Plain films were taken today and reviewed in office. RIGHT Hand 3V No fracture dislocation or foreign bodyyou maintain 1 is within normal limits with normal SL angle and SL interval radial lunocapitate line within normal limits CMC without significant arthritic changes PROCEDURE none ASSESSMENT 1. Right hand pain XR hand 3+ views right PLAN I discussed with Ragini the natural history, expected outcome, and risks/benefits of both operative and nonoperative management of her particular diagnosis relative to her age, activity level, previous treatment, and physical exam. Ragini had some excellent questions, all of which were answered to her satisfaction. Ragini elected to proceed with observation The above diagnosis has been present for greater than 1 year I did thoroughly review previous notes from other providers including myself, previous imaging, as well as pertinent testing including X-rays Today's treatment plan includes Observation Follow-up: Ragini will followup with me on an as needed basis. She knows to call the office with any questions or concerns in the interim. Future Imaging: NONE Brandon Singer MD Hand, Plastic, and Reconstructive Surgery [facility] Department of Orthopedics and Sports Medicine 02/15/2024 at 10:05 AM (Please note that portions of this note may have been completed with a voice recognition program. Efforts were made to edit the dictations but occasionally words are mis-transcribed.) documented in this encounter [facility] 02-15-2024 Instructions Iram Li - 02/15/2024 10:00 AM EDT documented in this encounter [facility] 02-06-2024 Telephone encounter Note Pt notified via [employer]. Belen Sinclair MA [facility] 02-06-2024 Miscellaneous Notes Pt notified via [employer]. Belen Sinclair MA She has an allergy to Mactrobid so I changed it I Keflex Jesus E. Campos, MPAS, MT, PA-C Called patient. No answer- left message to call clinic for results/orders and also aware MyChart message sent. Message sent to provider to clarify antibiotic order. Betzy Lemus LPN Please, notify patient the urine culture was positive Treatment e-scripted: Macrobid 100 mg x 10 days Thank jez, BETITO Reynolds MT, PA-C documented in this encounter [facility] 02-05-2024 Telephone encounter Note She has an allergy to Mactrobid so I changed it I Keflex BETITO Reynolds MT, PA-C [facility] 02-05-2024 Telephone encounter Note Called patient. No answer- left message to call clinic for results/orders and also aware MyChart message sent. Message sent to provider to clarify antibiotic order. Betzy Lemus LPN [facility] 02-02-2024 Telephone encounter Note Please, notify patient the urine culture was positive Treatment e-scripted: Macrobid 100 mg x 10 days Thank jez, BETITO Reynolds MT, PA-C [facility] 01-30-2024 Instructions Jesus Campos PA-C - 01/30/2024 8:26 AM EDT > 1 year Appt w/ B. BETITO Campos, WILFREDO HALEY for annual follow-up and refills. documented in this encounter [facility] 01-30-2024 Note HNO ID: [id number] Author: JESUS CAMPOS PA-C Service: ? Author Type: Physician Material Handler Floorperson Type: Progress Notes Filed: 01/30/2024 08:52 Note Text: [facility] EST PATIENT CLINIC NOTE NAME: Ragini Mensah CHIEF COMPLAINT: Follow up for Urine retention HISTORY OF PRESENT ILLNESS: Ragini Mensah is a 53 year old female following up for her history of urethral stricture and urinary retention using CIC twice per day , she has not had dilation for years and seems to continue to urinate well without obstruction, she has bladder spasms at times but seems to be less often that before Refilled her catheters to [facility], currently doing 2 time daily Renal US without hydronephrosis, stones or mass LUTS: EMPTIES COMPLETELY: No UTI: No GROSS HEMATURIA: no MEDICATIONS: vedolizumab (ENTYVIO) 300 mg injection 300 MG INTRAVENOUSLY EVERY 8 WEEKS ezetimibe (ZETIA) 10 mg tablet Take 10 mg by mouth once daily. ondansetron orally disintegrating (ZOFRAN ODT) 8 mg disintegrating tablet Take 8 mg by mouth every 8 hours as needed for nausea/vomiting. glimepiride (AMARYL) 4 mg tablet Take 8 [...] bedtime. (Patient not taking: Reported on 01/24/2023) PAST MEDICAL HISTORY: PAST MEDICAL HISTORY Diagnosis Date Arthritis, multiple joint involvement Body mass index 29.0-29.9, adult Breast cancer (HCC) H/O Chronic nausea Crohn disease (HCC) Dyslipidemia Environmental and seasonal allergies Former smoker GERD (gastroesophageal reflux disease) H/O urethral stricture Hypertension goal BP (blood pressure) < 140/90 Intertrigo Major depression Muscle spasm Overweight with body mass index (BMI) 25.0-29.9 Port-A-Cath in place Raynaud phenomenon Self-catheterizes urinary bladder Type 2 diabetes mellitus with hyperglycemia, without long-term current use of insulin (HCC) Urinary retention REVIEW OF SYSTEMS: GENERAL: No fever, chills, weight loss, or fatigue. PHYSICAL EXAMINATION: Blood pressure 132/76, pulse 94, temperature 36.8 ?C (98.2 ?F), temperature source Temporal, resp. rate 14, height 167.6 cm (5' 6), weight 80.3 kg (177 lb), SpO2 96%. GENERAL: WNL nutrition, no deformities, healthy appearing PROBLEM LIST REVIEW: Yes LABS: Results for orders placed or performed in visit on 01/30/24 UA DIP, URINE (POC) Result Value Ref Range GLUCOSE UA (POCT) Negative Negative mg/dL BILIRUBIN UA (POCT) Negative Negative KETONE UA (POCT) Negative Negative mg/dL SPECIFIC GRAVITY UA (POCT) 1.010 1.005 - 1.030 HEMOGLOBIN/BLOOD UA (POCT) Trace-intact (A) Negative PH UA (POCT) 6.0 4.5 - 8.0 PROTEIN UA (POCT) Negative Negative mg/dL UROBILINOGEN UA (POCT) 0.2 Normal E.U./dL NITRITE UA (POCT) Negative Negative LEUKOCYTES UA (POCT) Small (A) Negative COLOR UA (POCT) Yellow CLARITY UA (POCT) Slightly Cloudy Urine Culture -Pending PROCEDURES: PVR: 39 ml IMAGING: Renal US - 05/2023 RESULT: Right Kidney: -Renal length: 11.9 cm -Parenchyma: Normal parenchymal echogenicity. Normal parenchymal thickness. -Collecting system: No hydronephrosis. -Calculus: No echogenic, shadowing calculus. -Lesion: None. Left Kidney: -Renal length: 12.4 cm -Parenchyma: Normal parenchymal echogenicity. Normal parenchymal thickness. -Collecting system: No hydronephrosis. -Calculus: No echogenic, shadowing calculus. -Lesion: None. Bladder: Normal sonographic appearance with prevoid volume of 123 mL the post void volume of 61 mL. Increased hepatic echogenicity consistent with fatty change. IMPRESSION/PLAN: 1. Urine retention (more content not included)... [facility] 01-30-2024 History of Present illness Narrative Images from the original note were not included. [facility] EST PATIENT CLINIC NOTE NAME: Ragini Mensah CHIEF COMPLAINT: Follow up for Urine retention HISTORY OF PRESENT ILLNESS: Ragini Mensah is a 53 year old female following up for her history of urethral stricture and urinary retention using CIC twice per day , she has not had dilation for years and seems to continue to urinate well without obstruction, she has bladder spasms at times but seems to be less often that before Refilled her catheters to [facility], currently doing 2 time daily Renal US without hydronephrosis, stones or mass LUTS: EMPTIES COMPLETELY: No UTI: No GROSS HEMATURIA: no MEDICATIONS: vedolizumab (ENTYVIO) 300 mg injection 300 MG INTRAVENOUSLY EVERY 8 WEEKS ezetimibe (ZETIA) 10 mg tablet Take 10 mg by mouth once daily. ondansetron orally disintegrating (ZOFRAN ODT) 8 mg disintegrating tablet Take 8 mg by mouth every 8 hours as needed for nausea/vomiting. glimepiride (AMARYL) 4 mg tablet Take 8 [...] bedtime. (Patient not taking: Reported on 01/24/2023) PAST MEDICAL HISTORY: PAST MEDICAL HISTORY Diagnosis Date Arthritis, multiple joint involvement Body mass index 29.0-29.9, adult Breast cancer (HCC) H/O Chronic nausea Crohn disease (HCC) Dyslipidemia Environmental and seasonal allergies Former smoker GERD (gastroesophageal reflux disease) H/O urethral stricture Hypertension goal BP (blood pressure) < 140/90 Intertrigo Major depression Muscle spasm Overweight with body mass index (BMI) 25.0-29.9 Port-A-Cath in place Raynaud phenomenon Self-catheterizes urinary bladder Type 2 diabetes mellitus with hyperglycemia, without long-term current use of insulin (HCC) Urinary retention REVIEW OF SYSTEMS: GENERAL: No fever, chills, weight loss, or fatigue. PHYSICAL EXAMINATION: Blood pressure 132/76, pulse 94, temperature 36.8 C (98.2 F), temperature source Temporal, resp. rate 14, height 167.6 cm (5' 6), weight 80.3 kg (177 lb), SpO2 96%. GENERAL: WNL nutrition, no deformities, healthy appearing PROBLEM LIST REVIEW: Yes LABS: Results for orders placed or performed in visit on 01/30/24 UA DIP, URINE (POC) Result Value Ref Range GLUCOSE UA (POCT) Negative Negative mg/dL BILIRUBIN UA (POCT) Negative Negative KETONE UA (POCT) Negative Negative mg/dL SPECIFIC GRAVITY UA (POCT) 1.010 1.005 - 1.030 HEMOGLOBIN/BLOOD UA (POCT) Trace-intact (A) Negative PH UA (POCT) 6.0 4.5 - 8.0 PROTEIN UA (POCT) Negative Negative mg/dL UROBILINOGEN UA (POCT) 0.2 Normal E.U./dL NITRITE UA (POCT) Negative Negative LEUKOCYTES UA (POCT) Small (A) Negative COLOR UA (POCT) Yellow CLARITY UA (POCT) Slightly Cloudy Urine Culture -Pending PROCEDURES: PVR: 39 ml IMAGING: Renal US - 05/2023 RESULT: Right Kidney: -Renal length: 11.9 cm -Parenchyma: Normal parenchymal echogenicity. Normal parenchymal thickness. -Collecting system: No hydronephrosis. -Calculus: No echogenic, shadowing calculus. -Lesion: None. Left Kidney: -Renal length: 12.4 cm -Parenchyma: Normal parenchymal echogenicity. Normal parenchymal thickness. -Collecting system: No hydronephrosis. -Calculus: No echogenic, shadowing calculus. -Lesion: None. Bladder: Normal sonographic appearance with prevoid volume of 123 mL the post void volume of 61 mL. Increased hepatic echogenicity consistent with fatty change. IMPRESSION/PLAN: 1. Urine retention - ICD9: 788.20, ICD10: R33.9 (primary diagnosis) 2. H/O urethral stricture - ICD9: V13.09, ICD10: Z87.448 3. Screening for genitourinary condition - ICD9: V81.6, ICD10: Z13.89 > Continue CIC twice per day > Rx for 14f catheters to be faxed to [facility] - patient to call when needed > Renal US - reviewed with patient very stable, no hydroneprosis > 1 year Appt w/ B. BETITO Campos MT, PA-C for annual follow-up and refills. BETITO Reynolds MT, PA-C Verified name and date of . CC Post Void Residual HPI: Ragini Mensah is a 53 year old female. The patient is here now for an appointment with BETITO Reynolds MT, PA-COV. Procedure: Explained procedure to patient and verbalizes understanding. Performed a PVR. Patient urinated and instructed to empty bladder as much as possible just prior to having PVR done using bladder ultrasound scanner. Results of scan: 39 mL The patient tolerated the procedure well. Plan: Appointment with Jesus. documented in this encounter [facility] 01-30-2024 Note HNO ID: [id number] Author: BETZY LMEUS LPN Service: ? Author Type: LICENSED NURSE Type: Progress Notes Filed: 01/30/2024 08:52 Note Text: Verified name and date of . CC Post Void Residual HPI: Ragini Mensah is a 53 year old female. The patient is here now for an appointment with BETITO Reynolds MT, PA-COV. Procedure: Explained procedure to patient and verbalizes understanding. Performed a PVR. Patient urinated and instructed to empty bladder as much as possible just prior to having PVR done using bladder ultrasound scanner. Results of scan: 39 mL The patient tolerated the procedure well. Plan: Appointment with Jesus. [facility] 06-08-2023 History of Present illness Narrative Radiology Service Progress Note PATIENT NAME: Ragini Mensah DATE OF SERVICE: June 08, 2023 TIME: 8:18 AM PATIENT IDENTITY VERIFICATION COMPLETED USING TWO (2) IDENTIFIERS: Name and Date of confirmed by patient verbally. FALL SCREENING: Has the patient had 2 falls in the last year or 1 fall with injury or currently using an Ambulatory Assistive Device (Walker, Cane, Wheelchair, Crutches, etc.)? No PATIENT GENDER DATA: Female. status: : No status: NO. PATIENT RELEVANT IMPLANT DATA REVIEWED: Not Applicable PATIENT PRESENTS WITH AN IMPLANTABLE OR ATTACHED NAPPER FIXER: No RADIOLOGY DEPARTMENT: Ultrasound PERIPHERAL IV DATA: Not applicable SIGNED BY: Carmle Burk RDMS June 08, 2023 8:18 AM documented in this encounter [facility] 03-22-2023 Telephone encounter Note Images reviewed with radiology and consistent with scar tissue Left message on phone number on file [facility] 03-22-2023 Miscellaneous Notes Images reviewed with radiology and consistent with scar tissue Left message on phone number on file Ragini saw Dr Murguia today for abnormal breast imaging performed at [facility] in [place] She brought disc to appointment today of 03/01/23 bilateral mammogram and right dx and ultrasound Disc taken to Breast and Imaging to be loaded into [facility] Dr Murguia to review images documented in this encounter [facility] 03-22-2023 Telephone encounter Note Ragini saw Dr Murguia today for abnormal breast imaging performed at [facility] in [place] She brought disc to appointment today of 03/01/23 bilateral mammogram and right dx and ultrasound Disc taken to Breast and Imaging to be loaded into [facility] Dr Murguia to review images [employer] Actual Experience 03-22-2023 History of Present illness Narrative Images from the original note were not included. Chief Complaint Patient presents with Abnormal Imaging Denies any breast pain or concerns History of Present Illness: Ragini Mensah is a 52 y.o. female here for exam due to an abnormal mammogram in [facility] with BIRAD 3 probably benign findings RIGHT breast. 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 Had oophorectomy Treatments include: Surgery- 06/21/15 lumpectomy, In 2016 she had her implants removed and a bilateral mastopexy. Chemotherapy- none Radiation therapy- completed 10/09/15 Endocrine therapy- Arimidex Last mammogram date 03/01/23 [facility] Last DEXA 01/05/18. Results: Normal. Genetics: GeneDX- [...] Breast neoplasm, 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 Crohn's colitis (CMS/HCC) (HCC) Diabetes (HCC) Controled by diet GERD (gastroesophageal reflux disease) Hyperlipidemia MVP (mitral valve prolapse) hx of Osteoarthritis Restless leg syndrome Tachycardia TMJ (dislocation of temporomandibular joint) Past Surgical History: Procedure Laterality Date APPENDECTOMY 2015 BREAST BIOPSY Right 06/09/15 core biopsy right breast x 2 (+) BREAST BIOPSY Left 06/23/15 core biopsy left breast (-) BREAST ENHANCEMENT SURGERY 2005 BREAST LUMPECTOMY Right 07/20/15 RSL right breast [...] SALPINGOOPHORECTOMY Bilateral 09/2015 Laparoscopic TMJ ARTHROPLASTY (HISTORICAL) 87/89/98/12 x's 4 TMJ ARTHROSCOPY (HISTORICAL) TONSILLECTOMY AND [...] voice recognition software. documented in this encounter [facility] 03-20-2023 Miscellaneous Notes Images from the original note were not included. Jesus Campos PA-C [facility] Urology Pool; Ro Landry LPN 34 minutes ago (1:21 [...] Ro Landry LPN documented in this encounter [facility] 01-24-2023 History of Present illness Narrative Images from the original note were not included. [facility] NEW PATIENT CLINIC NOTE SERVICE DATE: 01/24/2023 SERVICE TIME: 2:52 PM NAME: Ragini Mensah CHIEF COMPLAINT: HISTORY OF PRESENT ILLNESS: Ragini Mensah is a 52 year old female moving from [place] to [place] and establishing for her long history of urethral stricture needing annual dilation in the past now with urinary retention and use of CIC twice per day , she has not had dilation for years The patient reports catheters needed new Rx to be sent to [facility], Rx for 130 each [...] resp. rate 14, height 167.6 cm (5' 6), weight 83.6 kg (184 lb 3.2 oz), [...] for 14f catheters to be faxed to [facility] today > Renal US - to [...] Appointment with Jesus. documented in this encounter [facility] Evaluation note Diagnosis Crohn's disease of both small and large intestine with intestinal obstruction (HCC)- Primary Regional enteritis of small intestine with large intestine Short bowel syndrome Other and unspecified postsurgical nonabsorption documented in this encounter [facility] Work Phone: Evaluation note* Diagnosis 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 documented in this encounter [facility] Work Phone: Evaluation note* Diagnosis 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 documented in this encounter [facility] Work Phone: Evaluation note* Diagnosis Urine retention- Primary Retention of urine, unspecified H/O urethral stricture Personal history of other disorder of urinary system Renal cyst Unspecified congenital cystic kidney disease [facility] Dysuria- Primary [facility] Diagnosis Breast asymmetry- Primary History of ductal carcinoma in situ (DCIS) of breast Abnormal mammogram of right breast [facility] noteNo assessment information [facility] Work Phone: Evaluation note* Diagnosis Urine retention Retention of urine, unspecified [facility] Diagnosis History of ductal carcinoma in situ (DCIS) of breast Abnormal mammogram of right breast Breast asymmetry [facility] Diagnosis Urine retention- Primary Retention of urine, unspecified H/O urethral stricture Personal history of other disorder of urinary system Screening for genitourinary condition Screening for other and unspecified genitourinary condition [facility] Diagnosis Malignant neoplasm of unspecified site of unspecified female breast (HCC) Right hand pain Pain in soft tissues of limb [facility] Diagnosis Right hand pain Pain in soft tissues of limb Dupuytren contracture of right hand Right hand pain Pain in soft tissues of limb [facility] Diagnosis Xerosis cutis- Primary Other specified disease of sebaceous glands Seborrheic keratosis Skin tags, multiple acquired Multiple benign melanocytic nevi of both upper extremities, both lower extremities, and trunk Dermatofibroma Benign neoplasm of skin, site unspecified [facility] Diagnosis Malignant neoplasm of unspecified site of unspecified female breast (HCC)- Primary Malignant neoplasm of unspecified site of unspecified female breast (HCC) [facility] Diagnosis Numbness- Primary Disturbance of skin sensation [facility] Diagnosis Multiple benign melanocytic nevi of both upper extremities, both lower extremities, and trunk- Primary Solar lentigo Other dyschromia Seborrheic keratosis Schmidt angioma Pilar cyst Lipoma of left upper extremity Keratosis pilaris Other specified congenital anomaly of skin [facility]* Diagnosis Numbness Disturbance of skin sensation [facility]* Diagnosis Numbness- Primary Disturbance of skin sensation [facility]* Diagnosis Encounter for screening mammogram for malignant neoplasm of breast [facility]* Diagnosis Numbness Disturbance of skin sensation [facility]* Diagnosis Numbness and tingling- Primary Disturbance of skin sensation Dizziness Dizziness and giddiness documented in this encounter [facility] for referral (narrative)* Diagnostic Procedure Only (Routine) - Authorized Specialty Diagnoses / Procedures Referred By Rabia munoz Referred To Contact US IMAGING Diagnoses Urine retention Procedures US KIDNEY/BLADDER US RETROPERITONEAL REAL TIME W/IMAGE COMPLETE Jesus Campos PA-C [address] [place] [address] [facility] [place] [address] Referral ID Status Reason Start Date Expiration Date Visits Requested Visits Authorized [id number] Authorized Auto-Generat ed Referral 02/24/2023 02/23/2024 1 1 [facility] for referral (narrative)* Diagnostic Procedure Only (Routine) - Closed Specialty Diagnoses / Procedures Referred By Rabia munoz Referred To Contact US IMAGING Diagnoses Urine retention Procedures US KIDNEY/BLADDER US RETROPERITONEAL REAL TIME W/IMAGE COMPLETE Jesus Campos PA-C [address] [place] [phone] [facility] [place] [address] Referral ID Status Reason Start Date Expiration Date V isits Requested Visits Authorized [id number] Closed Auto-Generate d Referral 02/24/2023 02/23/2024 1 1 [facility] for visit Narrative* Diagnostic Procedure Only (Routine) - Closed Specialty Diagnoses / Procedures Referred By Rabia t Referred To Contact US IMAGING Diagnoses Urine retention Procedures US KIDNEY/BLADDER US RETROPERITONEAL REAL TIME W/IMAGE COMPLETE Jesus Campos PA-C [address] [place] [id number] [place] [address] Referral ID Status Reason Start Date Expiration Date V isits Requested Visits Authorized [id number] Closed Auto-Generate d Referral 02/24/2023 02/23/2024 1 1 [facility] for visit Narrative* Hospital - Outpatient (Routine) - Closed Specialty Diagnoses / Procedures Referred By Rabia munoz Referred To Contact Neurology Diagnoses Numbness Procedures NERVE CONDUCTION TEST WITH EMG Treva Sweet MD [address] [place] [address] Phone: tel: fax: Referral ID Status Reason Start Date Expiration Date Visits Re quested Visits Authorized [id number] Closed 10/07/2024 10/02/2025 1 1 [facility] for visit Narrative* Imaging (Routine) - Closed Specialty Diagnoses / Procedures Referred By Rabia munoz Referred To Contact Radiology Diagnoses Numbness Procedures MR brain wo contrast Treva Sweet MD [address] [place] [address] Phone: tel: fax: Referral ID Status Reason Start Date Expiration Date Visits Re quested Visits Authorized [id number] Closed 10/07/2024 10/07/2025 1 1 [facility] Summary Purpose Family History No Family [...] FoundDocuments on File Type Date Recorded Patient Filter Plant Supervisor Expl anation Advance Directives and Living Will Power of Road Machine Runner Latest Code Status on File Code Status Date Activated Date Inactivated Comments Full Code 07/25/2017 10:12 AM 07/25/2017 4:15 PM Full Code 07/04/2017 12:10 PM 07/04/2017 5:06 PM Documents on File Type Date Recorded Patient Filter Plant Supervisor Expl anation Advance Directives and Living Will Power of Road Machine Runner Latest Code Status on File Code Status Date Activated Date Inactivated Comments Full Code 07/25/2017 10:12 AM 07/25/2017 4:15 PM Full Code 07/04/2017 12:10 PM 07/04/2017 5:06 PM Documents on File Type Date Recorded Patient Filter Plant Supervisor Expl anation ACP-Advance Directive ACP-Power of Road Machine Runner Assessments Diagnosis Short bowel syndrome- Primary Other [...] Limited Left Celi Rojas MD [address] [place] [address] Status Reason Specialty Diagnoses / Procedures Referred By Contact Referred To Contact Authorized Radiology Diagnoses Discharge from left nipple Procedures [facility] UNILATERAL LEFT Celi Rojas MD [address] [employer] [address] [address] Chief Complaint Chief Complaint Description Start Date [...] has not been provided by the sender. Chief Complaint and Reason for Visit Chief Complaint CROHNS DISEASE Additional Source Comments INFORMATION SOURCE (unrecogn ized section and content) DATE CREATED AUTHOR 03/06/2018 [facility] DATE CREATED AUTHOR AUTHOR'S ORGANIZ ATION 02/17/2020 [facility] DATE CREATED AUTHOR AUTHOR'S ORGANIZ ATION 10/15/2020 [facility] DATE CREATED AUTHOR AUTHOR'S ORGANIZ ATION 07/07/2024 [facility] DATE CREATED AUTHOR AUTHOR'S ORGANIZ ATION 10/07/2024 [facility] DATE CREATED AUTHOR AUTHOR'S ORGANIZ ATION 10/16/2024 [facility] DATE CREATED AUTHOR AUTHOR'S ORGANIZ ATION 11/14/2024 [facility] DATE CREATED AUTHOR AUTHOR'S ORGANIZ ATION 11/24/2024 [facility] Reason for Visit (unrecogniz ed section and content) Reason For Visit Description New - 1st visit with practice Preliminary reason f or visit data, not yet signed by the author as of right shoulder pain Reason Comments Consult Urinary Retention Reason Comments Patient Update Possible UTI Orders Reason Comments Abnormal Imaging Denies any breast pa in or concerns Reason Onset Date Comments Breast imaging disc from [facility] 03/22 Reason Comments Follow Up Urinary Retention Reason Comments Results Orders Reason Comments New Patient Right hand pain Specialty Diagnoses / Procedures Referred By Rabia munoz Referred To Contact Hand Surgery / Orthopedic Surgery Diagnoses Pain in right hand Procedures Eval and treat Emily Lowe [address] [facility] [address] [place] [address] Phone: tel: fax: Brandon Singer MD [address] [facility], [place] [address] [place] [address] Phone: tel: fax: Referral ID Status Reason Start Date Expiration Date Visits Re quested Visits Authorized [id number] Closed 01/02/2024 01/01/2025 1 1 Reason Comments Suspicious Skin Lesion BOTTOM STAINER (BT). Specialty Diagnoses / Procedures Referred By Rabia munoz Referred To Contact Dermatology Diagnoses skin lesions Procedures referral from [facility] [address] [facility], [place] [address] [place] [address] Phone: tel: fax: [facility], [place] [address] [place] [address] Phone: tel: fax: Referral ID Status Reason Start Date Expiration Date V isits Requested Visits Authorized [id number] Pending Review 01/01/2024 12/31/2024 1 1 Reason Comments Dizziness On and off for sever al months Specialty Diagnoses / Procedures Referred By Contac t Referred To Contact Neurology Diagnoses Unsteadiness on feet Procedures MO OFFICE/OUTPATIENT NEW MODERATE MDM 45 MINUTES Emily Lowe [address] [place] [address] Phone: tel: fax: Treva Sweet MD [address] [place] [address] [place] [address] Phone: tel: fax: Referral ID Status Reason Start Date Expiration Date Visits Re quested Visits Authorized [id number] Closed 07/10/2024 07/10/2025 1 1 Reason Comments Skin Lesion (PKN) Reason Onset Date Comments Other 10/07/2024 Reason Comments Follow-up 5 week follow up, di zziness - off and on pt states it worsens with movement Source Comments (unrecognize d section and content) In the event this informatio n is protected by the Federal Confidentiality of Alcohol and Drug Abuse Patient Records regulations: The Federal rules restrict any use of the information to criminally investigate or prosecute any alcohol or drug abuse patient.[facility] the event this information is protected by the Federal Confidentiality of Alcohol and Drug Abuse Patient Records regulations: The Federal rules restrict any use of the information to criminally investigate or prosecute any alcohol or drug abuse patient.[facility] Hospital[facility] the event this information is protected by the [facility] Confidentiality of Alcohol and Drug Abuse Patient Records regulations: The Federal rules restrict any use of the information to criminally investigate or prosecute any alcohol or drug abuse patient.[facility] the event this information is protected by the Federal Confidentiality of Alcohol and Drug Abuse Patient Records regulations: The Federal rules restrict any use of the information to criminally investigate or prosecute any alcohol or drug abuse patient.[facility] Care Teams (unrecognized sec tion and content) [employer] Relationship Specialty Start Date End Date Emily Lowe [address] [facility] [address] [place] [phone] PCP - General Internal Medicine 03/22/23 [employer] Relationship Specialty Start Date End Date Emily Lowe [address] [facility] [address] [place] [phone] PCP - General Internal Medicine 03/22/23 Team Status: Active Member Role Status Dates Emily Lowe BOTTOM STAINER, BOTTOM STAINER-C Primary Care Provider Active Team Status: Inactive Member Role Status Dates Dr. José Miguel Burris MD Attending Provider, Referring P lulu Active Emily Lowe BOTTOM STAINER, BOTTOM STAINER-C Primary Care Provider Active [employer] Relationship Specialty Start Date End Date Emily Lowe [address] [place] [address] PCP - General Internal Medicine 03/22/23 [employer] Relationship Specialty Start Date End Date Emily Lowe, MFT.[employer] [address] [place] [address] PCP - General Internal Medicine 01/30/24 [employer] Relationship Specialty Start Date End Date Emily Lowe, MFT.[employer] [address] [place] [phone] PCP - General Internal Medicine 01/30/24 [employer] Relationship Specialty Start Date End Date Emily Lowe [address] [place] [address] PCP - General Internal Medicine 03/22/23 [employer] Relationship Specialty Start Date End Date Emily Lowe [address] [place] [address] PCP - General Internal Medicine 03/22/23 [employer] Relationship Specialty Start Date End Date Emily Lowe [address] [place] [address] PCP - General Internal Medicine 03/22/23 [employer] Relationship Specialty Start Date End Date Emily Lowe [address] [place] [address] PCP - General Internal Medicine 03/22/23 [employer] Relationship Specialty Start Date End Date Emily Lowe [address] [place] [address] PCP - General Internal Medicine 03/22/23 [employer] Relationship Specialty Start Date End Date Emily Lowe [address] [place] [address] PCP - General Internal Medicine 03/22/23 [employer] Relationship Specialty Start Date End Date Emily Lowe [address] [place] [address] PCP - General Internal Medicine 03/22/23 [employer] Relationship Specialty Start Date End Date Emily Lowe [address] [place] [address] PCP - General Internal Medicine 03/22/23 [employer] Relationship Specialty Start Date End Date Emily Lowe [address] [place] [address] PCP - General Internal Medicine 03/22/23 [employer] Relationship Specialty Start Date End Date Emily Lowe [address] [place] [address] PCP - General Internal Medicine 03/22/23 [employer] Relationship Specialty Start Date End Date Emily Lowe [address] [place] [address] PCP - General Internal Medicine 03/22/23 Goals (unrecognized section and content) Goals may be documented in a n alternate section FOR RECORDS PERTAINING TO PATIENTS WHO ARE [...] BE BASED ON THE PRIMARY CLINICAL RECORDS. [employer] [facility]. provides no warranty or guarantee of the accuracy or completeness of information in this document.
== END | disposition home or self-care (01) ==
LOC: MRI 11:27
PROVIDERS: PCP Nurse Practitioner Family; Referring Provider Internal Medicine Gastroenterology; Visit Provider Internal Medicine Gastroenterology
DX: K50.80 Crohn's disease of both small and large intestine without complications (principal)
CPT/HCPCS: 74183; A9575; A4216; J1610